=== PATIENT | female | born 1960 | race Caucasian/White ===

== ENCOUNTER 2023-05-16 09:05 | Outpatient (OUT) | payer OTHER, SELFPAY ==
[2023-05-16 09:33] LABS: Estimated Average Glucose 108 mg/dL; Glycohemoglobin A1C 5.4 % (4.5-6.2)
[2023-05-16 09:42] LABS: Basophils Percent Auto 0.4 % (0.2-2.0); Eosinophils Percent Auto 0.9 % (0.9-7.0); Hematocrit 41.7 % (36.0-48.0); Hemoglobin 13.3 g/dL (12.0-16.0); Lymphocytes Absolute Auto 1.7 10^3/uL (1.2-3.8); Mean Corpuscular HGB Conc 31.9 g/dL (29.9-35.2); Mean Corpuscular Hemoglobin 30.8 pg (26.7-34.0); Mean Corpuscular Volume 96.5 fL (81.0-99.0); Mean Platelet Volume 11.2 fL (9.5-13.5); Monocytes Absolute Auto 0.4 10^3/uL (0.3-0.8); Monocytes Percent Auto 7.5 % (1.7-12.0); Neutrophils Absolute Auto 2.6 10^3/uL (1.4-6.5); Neutrophils Percent Auto 55.2 % (43.0-75.0); Platelet Count 198 10^3/uL (150-450); Red Blood Count 4.32 10^6/uL (4.20-5.40); Red Cell Distribution Width 12.9 % (11.0-15.0); White Blood Count 4.6 10^3/uL (4.0-11.0)
[2023-05-16 11:01] LABS: Alanine Aminotransferase 23 U/L (14-59); Albumin Globulin Ratio 1.1; Albumin Level 3.2 g/dL (3.4-5.0); Alkaline Phosphatase 81 U/L (46-116); Anion Gap 9.8; Aspartate Amino Transferase 19 U/L (15-37); BUN Creatinine Ratio 17.1; Bilirubin Total 0.7 mg/dL (0.2-1.0); Calcium 8.5 mg/dL (8.5-10.1); Carbon Dioxide 30.3 mmol/L (21.0-32.0); Chloride 106 mmol/L (98-107); Chol HDL Ratio 2.3; Cholesterol 193 mg/dL (<=200); Estimated GFR (African America >60 (>=60); Estimated GFR (Non-African Ame >60 (>=60); Free T3 2.24 pg/mL (2.18-3.98); Globulin 2.9 g/dL; Glucose 86 mg/dL (74-106); HDL Cholesterol 83 mg/dL (40-60); Potassium 4.1 mmol/L (3.5-5.1); Sodium 142 mmol/L (136-145); Thyroid Stimulating Hormone 0.914 uIU/mL (0.358-3.740); Total Protein 6.1 g/dL (6.4-8.2); Triglycerides 38 mg/dL (<=150); VLDL CHOLESTEROL 7.6 mg/dL
== END 2023-05-16 09:06 | disposition home or self-care (01) ==
LOC: LAB 09:05
PROVIDERS: PCP Family Medicine; Visit Provider Family Medicine
DX: Z00.00 Encounter for general adult medical examination without abnormal findings (principal)
CPT/HCPCS: 36415; 80053; 80061; 83036; 84436; 84443; 84481; 85025

== ENCOUNTER 2023-07-31 09:49 | Outpatient (OUT) | payer OTHER, SELFPAY ==
--- NOTE | 2023-07-31 09:55 | XR_ITS ---
[address] [address] Patient Name: SUMAN BOURNE MRN: [id number] date: 1960 Sex: F Assigned Patient Location: [facility] Current Patient Location: [facility] Accession/Order Number: [id number] Exam Date: 07/31/2023 10:20 Report Date: 07/31/2023 12:20 At the request of: AASHISH AGUILAR Procedure: XR DEXA axial skeleton EXAMINATION: XR DEXA axial skeleton, 07/31/2023 10:20 AM EST HISTORY: Primary Ovarian Failuer E28.39 COMPARISON: None. TECHNIQUE: Dual-energy X-ray absorptiometry (DEXA) bone density study performed for the axial skeleton. HISTORY: Primary Ovarian Failuer E28.39 FINDINGS: Bone mineral density AP spine L1-L4 measures 0.765 g/sq cm. T score -3.5. WHO classification: Osteoporosis. Lowest bone mineral density right femoral trochanter measuring 0.430 g/sq cm. T score -3.7. WHO classification: Osteoporosis XR/XR DEXA axial skeleton IMPRESSION: Osteoporosis. High fracture risk Electronically authenticated by: EFRAIN GRANT Date: 07/31/2023 12:20
== END 2023-07-31 09:50 | disposition home or self-care (01) ==
LOC: RAD 09:50
PROVIDERS: PCP Family Medicine; Visit Provider Family Medicine
DX: E28.39 Other primary ovarian failure (principal); M81.0 Age-related osteoporosis without current pathological fracture
CPT/HCPCS: 77080

== ENCOUNTER 2023-08-20 15:44 | Outpatient (OUT) | payer OTHER, SELFPAY ==
--- OUTSIDE RECORDS SUMMARY | 2023-08-20 15:46 | XMS_ITS | CCD ---
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 Role Phone PHYSICIAN, DEFAULT Unavailable Unavailable PHYSICIAN, DEFAULT Unavailable Unavailable LAUREN, DR ZENDEJAS Admitting Unavailable HOY, DR ZENDEJAS Attending Unavailable HOY, DR ZENDEJAS Consulting Unavailable HOY, DR ZENDEJAS Primary Care Unavailable HOY, DR ZENDEJAS Admitting Unavailable HOY, DR ZENDEJAS Attending Unavailable HOANGY, DR ZENDEJAS Consulting Unavailable LAUREN, DR ZENDEJAS Primary Care Unavailable ZEHRA, DR BHARATHI Jeff Consulting Unavailable HOANGY, DR ZENDEJAS Admitting Unavailable HOY, DR ZENDEJAS Attending Unavailable HOY, DR ZENDEJAS Consulting Unavailable HOY, DR ZENDEJAS Primary Care Unavailable INGLEWOOD, DR EFRAIN Rizzo Consulting Unavailable LAUREN, DR ZENDEJAS Admitting Unavailable LAUREN, DR ZENDEJAS Attending Unavailable LAUREN, DR ZENDEJAS Primary Care Unavailable Aashish Guerrero MD Primary Care Provider [phone] AASHISH GUERRERO Primary Care Unavailable LOUIE GERMAIN Referring Unavailable AASHISH GUERRERO Primary Care Unavailable LOUIE GERMAIN Attending Unavailable Medications Completed/Discontinued Medications Medication Drug Class(es) Dates Sig (Normalized) Sig (Original) busPIRone (2 sources) BUSPIRONE HCL (BUSPIRONE ORAL) Indications: H/O: knee surgery Take by mouth. 0 Active Comment on above: Take by mouth. cyclobenzaprine hydrochloride 10 mg oral tablet (2 sources) Muscle Relaxant cyclobenzaprine (FLEXERIL) 10 mg tablet Take 10-20 mg by mouth daily at bedtime. 0 Active Comment on above: Take 10-20 mg by nanette th daily at bedtime. docusate sodium 100 mg oral capsule (2 sources) Start: 09-12-2013 take 1 capsule by mouth every twelve hours as needed docusate sodium (COLACE) 100 mg capsule Take 1 capsule by mouth twice daily as needed for Constipation. 60 capsule 3 09/12/2013 Active Comment on above: Take 1 capsule by mo uth twice daily as needed for Constipation. ibuprofen 600 mg oral tablet (2 sources) Nonsteroidal Anti-inflammatory Drug Start: 09-12-2013 take 1 tablet by mouth every eight hours as needed ibuprofen 600 mg tablet Take 1 tablet by mouth every 8 hours as needed for Pain. 60 tablet 3 09/12/2013 Active Comment on above: Take 1 tablet by naentte th every 8 hours as needed for Pain. levETIRAcetam 500 mg oral tablet (2 sources) levETIRAcetam (KEPPRA) 500 mg tablet Take 3,000 mg by mouth daily at bedtime. 0 Active Comment on above: Take 3,000 mg by nanette th daily at bedtime. levothyroxine sodium 0.1 mg oral tablet (2 sources) l-Thyroxine take 1 tablet by mouth once daily before breakfast levothyroxine (LEVOTHROID) 100 mcg tablet Take 100 mcg by mouth daily before breakfast. 0 Active Comment on above: Take 100 mcg by mout h daily before breakfast. predniSONE 10 mg oral tablet (2 sources) Start: 01-22-2017 predniSONE (DELTASONE) 10 mg tablet Indications: Closed fracture of right patella, unspecified fracture morphology, initial encounter TAKE ONE TABLET TWICE DAILY TIMES 7 DAYS THAN ONE TABLET DAILY TIMES 7 DAYS. 21 tablet 0 01/22/2017 Active Comment on above: TAKE ONE TABLET TWIC E DAILY TIMES 7 DAYS THAN ONE TABLET DAILY TIMES 7 DAYS. Problems Active Problems Problem Classification Problem Date Documented Da te Episodic/Chronic Complication of device; implant or graft (1 source) Pain; Translations: [Pain due to internal orthopedic prosthetic devices, implants and grafts, initial encounter] Episodic Other lower respiratory disease (4 sources) Pleurodynia; Translations: [PLEURODYNIA] Onset: 11-25-2021 Episodic Other non-traumatic joint disorders (2 sources) Pain in right knee; Translations: [Pain in joint, lower leg] Onset: 11-21-2022 Episodic Residual codes; unclassified (1 source) Pain, unspecified; Translations: [Pain] Onset: 11-21-2022 Episodic Past or Other Problems Problem Classification Problem Date Documented Da te Episodic/Chronic Other non-traumatic joint disorders (4 sources) Pain in left knee; Translations: [PAIN IN LEFT KNEE] Onset: 09-11-2021 Episodic Other non-traumatic joint disorders (1 source) Effusion, left knee; Translations: [EFFUSION LEFT KNEE] Onset: 09-13-2021 Episodic Results Test Name Value Interpretation Reference Range Facility [facility] 11-21-2022 CNOV Office Visit (LOORRM) TIGIST MORTON ([id number]) 1960 F Date Time Provider Department 11/21/22 2:15 PM LOUIE GERMAIN During your visit today, we recorded the following information about you: Weight 69.9 kg Louie Germain MD 11/21/2022 3:31 PM Signed This document has been created with the use of voice recognition technology. It may contain inaccuracies: misspellings, inaccurate syntax or word sense that escaped review. The patient is seen at the request of self for evaluation and an opinion regarding treatment. A copy of this report will remain in the shared medical record CHIEF COMPLAINT: Tigist Morton is a 61 year old female who presents today for new evaluation of painful right knee hardware. HISTORY OF PRESENT ILLNESS: PAIN EVALUATION 11/21/2022 1418 Pain Level: 5 Pain Location: Knee-Right Description: Burning Duration Units: Years Frequency: Intermittent HISTORY: Tigist Morton has complains of painful right knee patellar fracture fixation hardware. She states that she sustained a syncopal episode on 2015 while in [place]. This resulted in a pelvic fracture. She subsequently underwent surgical treatment with fixation using K wire and cerclage wire technique. She subsequently was placed in a knee immobilizer and following up in [place]. She reports being in the knee immobilizer for 10 weeks and then was started in physical therapy. She reports decreased motion since. She did see GERRY Richardson in 2017 who gave her an intra-articular cortisone injection and initiated physical therapy. She does have pain with stairs and has difficulty with activities that require deep knee flexion such as riding the bike. She has difficulty kneeling. She notes prominence of the hardware with pain. No neurologic complaints. No other musculoskeletal complaints ROS: REVIEW OF SYSTEMS: Constitutional: patient denies any recent fever or significant change in weight Cardiovascular: patient denies any chest pain at rest Respiratory: patient denies any shortness of breath or cough Gastrointestinal: patient denies any current abdominal discomfort Integumentary: patient denies any recent skin changes Musculoskeletal: as noted in the HPI Neurologic: as noted in the HPI Endocrine: patient denies a current diagnosis of diabetes Hematologic/Lymphati c: Negative Psychologic: negative SOCIAL HISTORY: Tobacco Use: Never FAMILY HISTORY: FAMILY HISTORY Problem Relation Age of Onset Heart Father Thyroid Mother ALLERGIES: ALLERGIES No Known Allergies PAST MEDICAL HISTORY: PAST MEDICAL HISTORY Diagnosis Date Epilepsy ([facility]) Glaucoma Hypothyroid SOCIAL HISTORY: Tobacco Use: Never EXAMINATION: GENERAL: Appears healthy, well-nourished, no deformities. ORIENTATION: Alert and oriented to person place and time HABITUS: Normal GAIT: Normal, the patient did not have trouble getting onto the exam table. right knee exam: Midline skin incision which is healed No erythema or evidence of infection Prominence medially over the superior patella which is painful with palpation Prominence laterally and inferiorly patella which is painful with palpation No effusion Neutral alignment Active full extension, flexion 105. Good patellar tracking/mild patella femoral crepitation Negative pain with palpating medial compartment, negative pain with palpating lateral compartment. Stable to varus and valgus stresses. Donald is negative Negative anterior/posterior drawer. Negative McMurrays Palpable dorsalis pedis pulse Calf soft and nontender. Hip exam negative Intact sensation to light touch distally. RADIOGRAPHS: XR Obtained today and personally reviewed by myself demonstrating evidence for healed patellar fracture. 2 K wires with [id number]-nr-[id number] cerclage wire. The K wires appear to be prominent both proximally and distally. The lateral wire appears to be migrated distally from prior x-rays IMPRESSION: Encounter Diagnosis ICD-10-CM 1. Painful orthopaedic hardware ([facility]) T84.84XA CONSULT TO(TCI)PRE-OP CLEAR SURGICAL REQUEST - ELECTIVE (03/2020) 2. Right knee pain, unspecified chronicity M25.561 CRUTCHES Procedures Plan: Patient with painful hardware postoperative fixation right patella fracture. I discussed indications for removal of the hardware. Discussed main indication is pain from the hardware locally. 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 She has decreased flexion and I discussed that removal of the hardware will not improve her range of motion. I discussed that she may have difficulty kneeling regardless of the hardware is removed or not. I went over the procedure, rationale for the procedure, options risks expected outcome postoperative rehab. Discussed risks of infection, increased stiffness, perioperative medical problems, (more content not included)... Normal [facility] Elena 11-21-2022 CNPN Telephone (LOORRM) TIGIST MORTON ([id number]) 1960 F Date Time Provider Department 11/21/22 LOUIE GERMAIN During your visit today, we recorded the following information about you: Gui Leal 11/21/2022 3:44 PM Signed Spoke to patient and scheduled PACC for upcoming surgery of right knee with Dr. Germain of 12/10/22. Allergies As of Date: 11/21/2022 (No Known Allergies) Date Reviewed: 01/22/2017 Reviewed by: Lalit Hicks - Fully Assessed Reason for Visit: Surgical Followup [104] Prescriptions as of 11/21/2022 - predniSONE (DELTASONE) 10 mg tablet TAKE ONE TABLET TWICE DAILY TIMES 7 DAYS THAN ONE TABLET DAILY TIMES 7 DAYS. - BUSPIRONE HCL (BUSPIRONE ORAL) Take by mouth. - ibuprofen 600 mg tablet Take 1 tablet by mouth every 8 hours as needed for Pain. - docusate sodium (COLACE) 100 mg capsule Take 1 capsule by mouth twice daily as needed for Constipation. - cyclobenzaprine (FLEXERIL) 10 mg tablet Take 10-20 mg by mouth daily at bedtime. - levothyroxine (LEVOTHROID) 100 mcg tablet Take 100 mcg by mouth daily before breakfast. - levETIRAcetam (KEPPRA) 500 mg tablet Take 3,000 mg by mouth daily at bedtime. Problem List As Of Date: 11/21/2022 (None) Encounter Status:Closed by GUI LEAL on 11/21/22 Normal [facility] XR KNEE 4V AP/PA BOTH+LAT/ME R RTon 11-21-2022 XR KNEE 4V AP/PA BOTH+LAT/CUCA RT * * *Final Report* * * DATE OF EXAM: Nov 21 2022 2:13PM LZX 5203 - XR KNEE 4V AP/PA BOTH+LAT/CUCA RT / PROCEDURE REASON: Pain * * * * Physician Interpretation * * * * HISTORY (as given from clinical provider): Pain . Additional history provided by the performing technologist (if any): Right knee pain TECHNIQUE: XR KNEE 4V AP/PA BOTH+LAT/CUCA RT COMPARISON: 2016 RESULT: Awgcjj-kw-zbrik wire fixation of the patella. K wires extend beyond the superior and inferior pole of the patella. Hardware is intact. There is no fracture seen. Patella baja. 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 Osteopenia. No other significant abnormality. ----- IMPRESSION: HEALED PATELLAR FRACTURE STATUS POST FIXATION. ONE OF THE K WIRES HAS PROBABLY PULLED OUT SLIGHTLY COMPARED TO THE PRIOR STUDY. PATELLA BAJA. OSTEOARTHRITIS, SIMILAR TO PRIOR Veterinary X Ray Operator: [facility] Transcribe Date/Time: Nov 21 2022 4:09P Dictated by : JUAN CARLOS GRACIA MD This examination was interpreted and the report reviewed and electronically signed by: JUAN CARLOS GRACIA MD on Nov 21 2022 4:12PM EST [id number] Normal [facility] Elena 11-18-2022 NADEEM Telephone (4CQ) TIGIST MORTON ([id number]) 1960 F Date Time Provider Department 11/18/22 LOUIE GERMAIN 4CQ During your visit today, we recorded the following information about you: Anne Sanches Ma 11/18/2022 2:40 PM Signed Tigist Morton is calling Louie Germain MD today to request Release Of Medical Records Patient calling stating she has appt 11/[address] Germain. States she is not able to get a hold of the doctor in [facility] to ask for records from when she was hospitalized in 07/17/[address] Germain office could try calling them to see if they could get the records? Patient wondering if she has to cancel appt if no records are received before appt? Please advise patient. [facility] Phone- [phone] Fax- [phone] Patient has been identified by name and birthdate. Duration of symptoms: N/A Person calling: self Call patient at: at home [phone] (home) [phone] (work) [phone] (cell) Was an appointment scheduled: No Closing statement: Results or non-symptom based questions: Thank you for calling [facility], your call will be returned within the next business day. Anne Pruett RN 11/18/2022 3:14 PM Signed Called patient and let her know that we would like to have the patients operative records from her previous knee surgery. Gave her our fax number. Let her know that if she is unable to get her records by Thursday we would still see her. Patient stated understanding. Allergies As of Date: 11/18/2022 (No Known Allergies) Date Reviewed: 01/22/2017 Reviewed by: Lalit Gonzalez) [facility] - Fully Assessed Reason for Visit: Release Of Medical Records [2017] Prescriptions as of 11/18/2022 - predniSONE (DELTASONE) 10 mg tablet TAKE ONE TABLET TWICE DAILY TIMES 7 DAYS THAN ONE TABLET DAILY TIMES 7 DAYS. - BUSPIRONE HCL (BUSPIRONE ORAL) Take by mouth. - ibuprofen 600 mg tablet Take 1 tablet by mouth every 8 hours as needed for Pain. - docusate sodium (COLACE) 100 mg capsule Take 1 capsule by mouth twice daily as needed for Constipation. - cyclobenzaprine (FLEXERIL) 10 mg tablet Take 10-20 mg by mouth daily at bedtime. - levothyroxine (LEVOTHROID) 100 mcg tablet Take 100 mcg by mouth daily before breakfast. - levETIRAcetam (KEPPRA) 500 mg tablet Take 3,000 mg by mouth daily at bedtime. Problem List As Of Date: 11/18/2022 (None) Encounter Status:Closed by RHIANNON PRUETT on 11/18/22 Normal [facility] Superficial Wound Cultureon 03-12-2022 Superficial Wound Culture Result Tab Codes 03/13/22 [facility] FURNACE COOLER PM ORGANISM: Staphylococcus aureus (O:STAAUR) Quantity of Growth Moderate Growth Aerobic JANETH Charge (PC45) ----- SUSCEPTIBILITY ---- ORGANISM: O:STAAUR ANTIBIOTIC INTERPRETATION JANETH Amoxacillin/K Clavulanate S <4/2 Ampicillin/Sulbactam S <8/4 Azithromycin S <2 Cefazolin S <8 Ceftaroline S <0.5 Ceftriaxone S <8 Ciprofloxacin S <1 Clindamycin S <0.5 Daptomycin S <1 Erythromycin S <0.25 Levofloxacin S <1 Linezolid S <2 Meropenem S <4 Oxacillin S <0.25 Penicillin S <0.03 Piperacillin/Tazobac clinton S <4 Rifampin S <1 Tetracycline S <4 Trimethoprim/Sulfame thoxazole S <0.5/9.5 Vancomycin S 1 S = SUSCEPTIBLE I = INTERMEDIATE R = RESISTANT BLANK = DATA NOT AVAILABLE, OR DRUG NOT ADVISABLE OR TESTED R* = RESISTANCE DUE TO EXTENDED SPECTRUM BETA-LACTAMASES ESBL = EXTENDED SPECTRUM BETA-LACTAMASE TFG = THYMIDINE-DEPENDENT STRAIN SERVANDO = BETA-LACTAMASE POSITIVE IB = INDUCIBLE BETA-LACTAMASE. APPEARS IN PLACE OF 'S' WITH SPECIES KNOWN TO POSSESS INDUCIBLE BETA-LACTAMASES. POTENTIALLY THEY MAY BECOME RESISTANT TO ALL B-LACTAM DRUGS. PERFORMED BY: [address] [place] [address] PATHOLOGIST AP OPERATOR RAMIN BRIDGES M.D. Normal [facility] Comment on above: Performed By: #### C USUP #### [facility] [address] INSULINon 01-06-2022 Insulin 8.1 uIU/mL Normal 2.6-24.9 [facility] Comment on above: Performed By: #### I NSULIN #### [facility] [address] [place] [address] Dr. Ludmila Farooq CBC AUTO DIFFon 01-04-2022 BASO # 0.0 103/ul Normal 0.0-0.1 [facility] Comment on above: Performed By: #### C BC #### [facility] [address] [place] [address] Dr. Ludmila Farooq Basophils/100 WBC (Bld) 0.3 % Normal 0.2-2.0 [facility] Comment on above: Performed By: #### C BC #### [facility] [address] [place] [address] Dr. Ludmila Farooq EO # 0.1 103/ul Normal 0.0-0.7 [facility] Comment on above: Performed By: #### C BC #### [facility] [address] [place] [address] Dr. Ludmila Farooq Eosinophils/100 WBC (Bld) 1.3 % Normal 0.9-7.0 [facility] Comment on above: Performed By: #### C BC #### [facility] [address] [place] [address] Dr. Ludmila Farooq Erythrocyte distribution width (RBC) [Ratio] 13.2 % Normal 11.0-15.0 [facility] Comment on above: Performed By: #### C BC #### [facility] [address] [place] [address] Dr. Ludmila Farooq Hematocrit (Bld) [Volume fraction] 41.7 % Normal 36.0-48.0 [facility] Comment on above: Performed By: #### C BC #### [facility] [address] [place] [address] Dr. Ludmila Farooq Hemoglobin (Bld) [Mass/Vol] 13.5 g/dL Normal 12.0-16.0 [facility] Comment on above: Performed By: #### C BC #### [facility] [address] [place] [address] Dr. Ludmila Farooq IG # 0.01 10e3/ul Normal 0.00-0.03 [facility] Comment on above: Performed By: #### C BC #### [facility] [address] [place] [address] Dr. Ludmila Farooq IG % 0.3 % Normal 0.0-0.5 [facility] Comment on above: Performed By: #### C BC #### [facility] [address] [place] [address] Dr. Ludmila Farooq LYMPH # 1.6 103/ul Normal 1.2-3.8 [facility] Comment on above: Performed By: #### C BC #### [facility] [address] [place] [address] Dr. Ludmila Farooq Lymphocytes/100 WBC (Bld) 40.7 % Normal 20.5-60.0 [facility] Comment on above: Performed By: #### C BC #### [facility] [address] [place] [address] Dr. Ludmila Farooq MANUAL DIFF REQ NO Normal [facility] Comment on above: Performed By: #### C BC #### [facility] [address] [place] [address] Dr. Ludmila Farooq MCH (RBC) [Entitic mass] 30.8 pg Normal 26.7-34.0 [facility] Comment on above: Performed By: #### C BC #### [facility] [address] [place] [address] Dr. Ludmila Farooq MCHC (RBC) [Mass/Vol] 32.4 g/dL Normal 29.9-35.2 [facility] Comment on above: Performed By: #### C BC #### [facility] [address] [place] [address] Dr. Ludmila Farooq MCV (RBC) [Entitic vol] 95.2 fL Normal 81.0-99.0 [facility] Comment on above: Performed By: #### C BC #### [facility] [address] [place] [address] Dr. Ludmila Farooq MONO # 0.3 103/ul Normal 0.3-0.8 [facility] Comment on above: Performed By: #### C BC #### [facility] [address] [place] [address] Dr. Ludmila Farooq Monocytes/100 WBC (Bld) 7.3 % Normal 1.7-12.0 [facility] Comment on above: Performed By: #### C BC #### [facility] [address] [place] [address] Dr. Ludmila Farooq NEUT # 2.0 103/ul Normal 1.4-6.5 [facility] Comment on above: Performed By: #### C BC #### [facility] [address] [place] [address] Dr. Ludmila Farooq Neutrophils/100 WBC (Bld) 50.1 % Normal 43.0-75.0 [facility] Comment on above: Performed By: #### C BC #### [facility] [address] [place] [address] Dr. Ludmila Farooq Platelet mean volume (Bld) [Entitic vol] 10.5 fL Normal 9.5-13.5 [facility] Comment on above: Performed By: #### C BC #### [facility] [address] [place] [address] Dr. Ludmila Farooq PLT 236 103/ul Normal 150-450 [facility] Comment on above: Performed By: #### C BC #### [facility] [address] [place] [address] Dr. Ludmila Farooq RBC 4.38 106/ul Normal 4.20-5.40 [facility] Comment on above: Performed By: #### C BC #### [facility] [address] [place] [address] Dr. Ludmila Farooq WBC 4.0 103/ul Normal 4.0-11.0 [facility] Comment on above: Performed By: #### C BC #### [facility] [address] [place] [address] Dr. Ludmila Farooq FREE THYROXINE INDEX T7on FTI 3.22 Normal 1.30-4.50 [facility] Comment on above: Performed By: #### C MP, T7, LIPID, TSH #### [facility] [address] [place] [address] Dr. Ludmila Farooq T3U 37.0 % Normal 30.0-39.0 [facility] Comment on above: Performed By: #### C MP, T7, LIPID, TSH #### [facility] [address] [place] [address] Dr. Ludmila Farooq T4 [Mass/Vol] 8.70 ug/dL Normal 4.80-13.90 [facility] Comment on above: Performed By: #### C MP, T7, LIPID, TSH #### [facility] [address] [place] [address] Dr. Ludmila Farooq GLYCOHEMOGLOBIN A1Con 2021 ADA RECOMMENDATION SEE BELOW Normal [facility] Comment on above: Result Comment: ADA RECOMMENDED LIMIT 4.0 - 6.0 ADA THERAPEUTIC TARGET < 7.0 ACTION SUGGESTED > 7.0 Performed By: #### A 1C #### [facility] [address] [place] [address] Dr. Ludmila Farooq Glucose [Mass/Vol] 111 mg/dL Normal [facility] Comment on above: Performed By: #### A 1C #### [facility] [address] [place] [address] Dr. Ludmila Farooq HbA1c (Bld) [Mass fraction] 5.5 % Normal 4.5-6.2 [facility] Comment on above: Performed By: #### A 1C #### [facility] [address] [place] [address] Dr. Ludmila Farooq IRONon 01-04-2022 Iron [Mass/Vol] 110.0 ug/dL Normal 50.0-170.0 [facility] Comment on above: Performed By: #### I DEVENDRA #### [facility] [address] [address] [address] Ludmila Farooq LIPID PROFILEon 01-04-2022 CHOL-HDL RATIO NORM SEE BELOW Normal [facility] Comment on above: Result Comment: 3.3 - 4.4 LOW RISK 4.4 - 7.1 AVERAGE RISK 7.1 - 11.0 MODERATE RISK >11.0 HIGH RISK Performed By: #### C MP, T7, LIPID, TSH #### [facility] [address] [address] [address] Ludmila Farooq Cholesterol [Mass/Vol] 267 mg/dL Critically high <=200 [facility] Comment on above: Performed By: #### C MP, T7, LIPID, TSH #### [facility] [address] [place] [address] Dr. Ludmila Farooq Cholesterol in HDL [Mass/Vol] 84 mg/dL Critically high 40-60 [facility] Comment on above: Performed By: #### C MP, T7, LIPID, TSH #### [facility] [address] [address] [address] Ludmila Farooq Cholesterol in LDL [Mass/Vol] 172.0 mg/dL Normal [facility] Comment on above: Performed By: #### C MP, T7, LIPID, TSH #### [facility] [address] [address] [address] Ludmila Farooq Cholesterol.total/Cho lesterol in HDL [Mass ratio] 3.2 {ratio} Normal [facility] Comment on above: Performed By: #### C MP, T7, LIPID, TSH #### [facility] [address] [place] [address] Dr. Ludmila Farooq HDL NORMAL > or = 60 mg/dl - LOW CARDIOVASCULAR RISK <40 mg/dl - HIGH CARDIOVASCULAR RISK Normal [facility] Comment on above: Performed By: #### C MP, T7, LIPID, TSH #### [facility] [address] [place] [address] Dr. Ludmila Farooq LDL CALC NORMAL SEE BELOW Normal [facility] Comment on above: Result Comment: <100 mg/dl OPTIMAL 100 - 129 mg/dl NEAR OR ABOVE OPTIMAL 130 - 159 mg/dl BORDERLINE HIGH 160 - 189 mg/dl HIGH >190 mg/dl VERY HIGH Performed By: #### C MP, T7, LIPID, TSH #### [facility] [address] [address] [address] Ludmila Farooq Triglyceride [Mass/Vol] 55 mg/dL Normal <=150 [facility] Comment on above: Performed By: #### C MP, T7, LIPID, TSH #### [facility] [address] [address] [address] Ludmila Farooq VLDL CALC 11.0 mg/dL Normal [facility] Comment on above: Performed By: #### C MP, T7, LIPID, TSH #### [facility] [address] [address] [address] Ludmila Farooq OCC BLD IMMUNO SCREENon 12-22 OCCULT BLOOD Negative Normal NEGATIVE [facility] Comment on above: Performed By: #### O BSCRN #### [facility] [address] [place] [address] Dr. Ludmila Farooq PROF 14(COMP METB)on 022 Albumin [Mass/Vol] 3.4 g/dL Normal 3.4-5.0 [facility] Comment on above: Performed By: #### C MP, T7, LIPID, TSH #### [facility] [address] [place] [address] Dr. Ludmila Farooq Albumin/Globulin [Mass ratio] 1.0 {ratio} Normal [facility] Comment on above: Performed By: #### C MP, T7, LIPID, TSH #### [facility] [address] [place] [address] Dr. Ludmila Farooq ALP [Catalytic activity/Vol] 93 U/L Normal 46-116 [facility] Comment on above: Performed By: #### C MP, T7, LIPID, TSH #### [facility] [address] [place] [address] Dr. Ludmila Farooq ALT [Catalytic activity/Vol] 22 U/L Normal 14-59 [facility] Comment on above: Performed By: #### C MP, T7, LIPID, TSH #### [facility] [address] [place] [address] Dr. Ludmila Farooq Anion gap [Moles/Vol] 9.1 mmol/L Normal [facility] Comment on above: Performed By: #### C MP, T7, LIPID, TSH #### [facility] [address] [address] [address] Ludmila Farooq AST [Catalytic activity/Vol] 17 U/L Normal 15-37 [facility] Comment on above: Performed By: #### C MP, T7, LIPID, TSH #### [facility] [address] [address] [address] Ludmila Farooq Bilirubin [Mass/Vol] 0.7 mg/dL Normal 0.2-1.0 [facility] Comment on above: Performed By: #### C MP, T7, LIPID, TSH #### [facility] [address] [place] [address] Dr. Ludmila Farooq Calcium [Mass/Vol] 8.7 mg/dL Normal 8.5-10.1 [facility] Comment on above: Performed By: #### C MP, T7, LIPID, TSH #### [facility] [address] [address] [address] Ludmila Farooq Chloride [Moles/Vol] 103 mmol/L Normal 98-107 [facility] Comment on above: Performed By: #### C MP, T7, LIPID, TSH #### [facility] [address] [place] [address] Dr. Ludmila Farooq CO2 [Moles/Vol] 31.7 mmol/L Normal 21.0-32.0 [facility] Comment on above: Performed By: #### C MP, T7, LIPID, TSH #### [facility] [address] [place] [address] Dr. Ludmila Farooq Creatinine [Mass/Vol] 0.82 mg/dL Normal 0.55-1.02 [facility] Comment on above: Performed By: #### C MP, T7, LIPID, TSH #### [facility] [address] [place] [address] Dr. Ludmila Farooq EGFR-AF SWEDISH >60 Normal >=60 [facility] Comment on above: Performed By: #### C MP, T7, LIPID, TSH #### [facility] [address] [address] [address] Ludmila Farooq EGFR-NON AF SWEDISH >60 Normal >=60 [facility] Comment on above: Performed By: #### C MP, T7, LIPID, TSH #### [facility] [address] [address] [address] Ludmila Farooq Globulin (S) [Mass/Vol] 3.4 g/dL Normal [facility] Comment on above: Performed By: #### C MP, T7, LIPID, TSH #### [facility] [address] [place] [address] Dr. Ludmila Farooq Glucose [Mass/Vol] 91 mg/dL Normal 74-106 [facility] Comment on above: Performed By: #### C MP, T7, LIPID, TSH #### [facility] [address] [place] [address] Dr. Ludmila Farooq Potassium [Moles/Vol] 3.8 mmol/L Normal 3.5-5.1 [facility] Comment on above: Performed By: #### C MP, T7, LIPID, TSH #### [facility] [address] [address] [address] Ludmila Farooq Protein [Mass/Vol] 6.8 g/dL Normal 6.4-8.2 [facility] Comment on above: Performed By: #### C MP, T7, LIPID, TSH #### [facility] [address] [place] [address] Dr. Ludmila Farooq Sodium [Moles/Vol] 140 mmol/L Normal 136-145 [facility] Comment on above: Performed By: #### C MP, T7, LIPID, TSH #### [facility] [address] [place] [address] Dr. Ludmila Farooq Urea nitrogen [Mass/Vol] 16.0 mg/dL Normal 7.0-18.0 [facility] Comment on above: Performed By: #### C MP, T7, LIPID, TSH #### [facility] [address] [place] [address] Dr. Ludmila Farooq Urea nitrogen/Creatinine [Mass ratio] 19.5 mg/mg Normal [facility] Comment on above: Performed By: #### C MP, T7, LIPID, TSH #### [facility] [address] [place], [place] [address] Dr. Ludmila Farooq TSHon 01-04-2022 TSH 0.608 uIU/mL Normal 0.358-3.740 [facility] Comment on above: Performed By: #### C MP, T7, LIPID, TSH ####[facility] [address] [place], [place] [address]YqDr. Ludmila Farooq TSH RANGE SEE BELOW Normal [facility] Comment on above: Result Comment: <0.3 4 UIU/ml HYPERTHYROID 0.34-5.60 UIU/ml EUTHYROID >5.60 UIU/ml HYPOTHYROID Performed By: #### C MP, T7, LIPID, TSH ####[facility] [address] [place], [place] [address]VlDr. Ludmila Farooq XR RIBS RT PA Gage 2 XR RIBS RT PA CH EXAMINATION: XR RIBS RT PA CH HISTORY: Pleuritic pain , right posterior lateral mid rib pain. COMPARISON: No relevant comparison available. FINDINGS: LUNGS: No significant pulmonary parenchymal abnormalities. PLEURA: No pneumothorax, effusion, or pleural thickening. MEDIASTINUM: No visible mass or adenopathy. CARDIAC: No cardiomegaly or cardiac silhouette abnormality. RIBS: No appreciable fracture or bone lesion. OTHER: Negative. IMPRESSION: 1. No acute cardiopulmonary process. 2. No appreciable rib abnormality. Electronically authenticated by: BHARATHI SHAHID Date: 2021-11-26 07:07 Normal [facility] Vital Signs Date Time Vital Sign Value Performing Clinician Faci lity 11-21-2022 14:20-0400 Body weight 69.85 kg Louie Germain MD Work Phone: [facility] Encounters Encounter Date Encounter Type Care Provider Facility Start: 11-21-2022 End: 11-21-2022 ambulatory AASHISH GUERRERO Facility:[facility] Start: 11-21-2022 End: 11-21-2022 Patient encounter procedure Louie Germain MD Work Phone: Orthopaedics Comment on above: Painful orthopaedic hardware (HCC) (Primary Dx); Right knee pain, unspecified chronicity Start: 11-18-2022 Telephone encounter Louie hughes MD Work Phone: [address] [place] [address] Comment on above: Release Of Medical R ecords Start: 03-25-[address] AASHISH GUERRERO Facility :[facility] Start: 01-08-2022 Encounter for genera l adult medical examination without abnormal findings DR AASHISH GUERRERO [facility] Start: 01-04-2022 End: 01-05-[address] AASHISH GUERRERO Facility:[facility] Start: 01-04-2022 End: 01-05-2022 Encounter for general adult medical examination without abnormal findings DR AASHISH GUERRERO Facility:[facility] Start: 11-25-2021 End: 11-26-[address] AASHISH GUERRERO Facility:[facility] Start: 09-11-2021 End: 09-12-[address] AASHISH GUERRERO Facility:[facility] Start: 12-21-2017 End: 12-22-2017 Ambulatory DEFAULT PHYSICIAN Facility:[facility] Plan of Treatment Date Care Activity Detail Author Start: 08-24-2022 DEPRESSION ASSESSMENT DEPRESSION ASS ESSMENT [facility] Start: 04-24-2022 Influenza vaccination INFLUENZA (#1) [facility] Start: 10-10-2021 COVID-19 VACCINE (4 - Booster for Moderna series) COVID-19 VACCINE (4 - Booster for Moderna series) [facility] Start: 09-12-2016 DIABETES SCREEN DIABETES SCREEN [facility] Start: 01-01-2012 SHINGRIX VACCINE (1 of 2) SHINGRIX V ACCINE (1 of 2) [facility] Start: 2006 COLOGUARD (FIT-DNA) COLOGUARD (FIT-D NA) [facility] Start: 2006 Colonoscopy COLONOSCOPY [facility] Start: 2006 COLORECTAL CANCER SCREENING COLORECTAL CANCER SCREENING [facility] Start: [address] COLONOGRAPHY [facility] Start: 2006 FECAL OCCULT BLOOD FECAL OCCULT BLOO D [facility] Start: 2006 LIPID SCREEN LIPID SCREEN [facility] Start: 2006 SIGMOIDOSCOPY SIGMOIDOSCOPY [facility] Start: 2001 Mammography MAMMOGRAM [facility] Start: 01-01-1992 HPV TESTING HPV TESTING [facility] Start: 1982 PAP TESTING PAP TESTING [facility] Start: 1980 Urine microalbumin profile DTAP,TDAP ,TD (1 - Tdap) [facility] Start: 01-01-1980 HEPATITIS C SCREENING HEPATITIS C SC REENING [facility] Start: 01-01-1980 [facility] Start: 07-03-1962 COVID-19 VACCINE (#1) COVID-19 VACCI NE (#1) [facility] Payers Date Payer Category Payer Unknown 1960 Unknown [id number] 1960 Unknown [id number] 1961 Unknown [id number] 1961 Unknown [id number] 1958 Self-pay 1958 Unknown [id number] Social History Date Type Detail Facility [facility]: 09-06-[facility] Start: 09-06-2013 Tobacco use and exposure Smoke less tobacco non-user [facility] Start: 03-25-2015 Alcohol intake Current drinke r of alcohol (finding) [facility] Start: 1960 Sex Assigned At Not on file [facility] Medical Equipment Procedure Code Equipment Code Equipment Origin al Text Equipment Identifier Dates Restorelle L-Mes h - [id number] Start: 09-12-2013 Mesh Trnvg Jg 45x1.1cm Gyncr - [id number] Start: 09-12-2013 Progress note 11-21-2022 Note Date & Type Note Facility 11-21-2022 Note HNO ID: [id number] Author: Louie Germain MD Service: ? Author Type: Physician Type: Progress Notes Filed: 11/21/2022 3:31 PM Note Text: This document has been created with the use of voice recognition technology. It may contain inaccuracies: misspellings, inaccurate syntax or word sense that escaped review. The patient is seen at the request of self for evaluation and an opinion regarding treatment. A copy of this report will remain in the shared medical record CHIEF COMPLAINT: Tigist Morton is a 61 year old female who presents today for new evaluation of painful right knee hardware. HISTORY OF PRESENT ILLNESS: PAIN EVALUATION 11/21/2022 1418 Pain Level: 5 Pain Location: Knee-Right Description: Burning Duration Units: Years Frequency: Intermittent HISTORY: Tigist Morton has complains of painful right knee patellar fracture fixation hardware. She states that she sustained a syncopal episode on 2015 while in [place]. This resulted in a pelvic fracture. She subsequently underwent surgical treatment with fixation using K wire and cerclage wire technique. She subsequently was placed in a knee immobilizer and following up in [place]. She reports being in the knee immobilizer for 10 weeks and then was started in physical therapy. She reports decreased motion since. She did see GERRY Richardson in 2016 who gave her an intra-articular cortisone injection and initiated physical therapy. She does have pain with stairs and has difficulty with activities that require deep knee flexion such as riding the bike. She has difficulty kneeling. She notes prominence of the hardware with pain. No neurologic complaints. No other musculoskeletal complaints ROS: REVIEW OF SYSTEMS: Constitutional: patient denies any recent fever or significant change in weight Cardiovascular: patient denies any chest pain at rest Respiratory: patient denies any shortness of breath or cough Gastrointestinal: patient denies any current abdominal discomfort Integumentary: patient denies any recent skin changes Musculoskeletal: as noted in the HPI Neurologic: as noted in the HPI Endocrine: patient denies a current diagnosis of diabetes Hematologic/Lymphatic: Negative Psychologic: negative SOCIAL HISTORY: Tobacco Use: Never FAMILY HISTORY: FAMILY HISTORY Problem Relation Age of Onset Heart Father Thyroid Mother ALLERGIES: ALLERGIES No Known Allergies PAST MEDICAL HISTORY: PAST MEDICAL HISTORY Diagnosis Date Epilepsy (HCC) Glaucoma Hypothyroid SOCIAL HISTORY: Tobacco Use: Never EXAMINATION: GENERAL: Appears healthy, well-nourished, no deformities. ORIENTATION: Alert and oriented to person place and time HABITUS: Normal GAIT: Normal, the patient did not have trouble getting onto the exam table. right knee exam: Midline skin incision which is healed No erythema or evidence of infection Prominence medially over the superior patella which is painful with palpation Prominence laterally and inferiorly patella which is painful with palpation No effusion Neutral alignment Active full extension, flexion 105. Good patellar tracking/mild patella femoral crepitation Negative pain with palpating medial compartment, negative pain with palpating lateral compartment. Stable to varus and valgus stresses. Donald is negative Negative anterior/posterior drawer. Negative Mc[place]rays Palpable dorsalis pedis pulse Calf soft and nontender. Hip exam negative Intact sensation to light touch distally. RADIOGRAPHS: XR Obtained today and personally reviewed by myself demonstrating evidence for healed patellar fracture. 2 K wires with spwjfj-on-qkfjg cerclage wire. The K wires appear to be prominent both proximally and distally. The lateral wire appears to be migrated distally from prior x-rays IMPRESSION: Encounter Diagnosis ICD-10-CM 1. Painful orthopaedic hardware ([facility]) T84.84XA CONSULT TO(TCI)PRE-OP CLEAR SURGICAL REQUEST - ELECTIVE (03/2020) 2. Right knee pain, unspecified chronicity M25.561 CRUTCHES Procedures Plan: Patient with painful hardware postoperative fixation right patella fracture. I discussed indications for removal of the hardware. Discussed main indication is pain from the hardware locally. 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 She has decreased flexion and I discussed that removal of the hardware will not improve her range of motion. I discussed that she may have difficulty kneeling regardless of the hardware is removed or not. I went over the procedure, rationale for the procedure, options risks expected outcome postoperative rehab. Discussed risks of infection, increased stiffness, perioperative medical problems, neurovascular injury, DVT and persistent pain. I discussed expectations for removal of the hardware and no guarantees were given. She had a good understanding wishes to have the hardware r (more content not included)... [facility] Progress note 11-21-2022 Note Date & Type Note Facility 11-21-2022 Note HNO ID: [id number] Author: Randi Sorensen RT(R) Service: ? Author Type: Technologist Type: Progress Notes Filed: 11/21/2022 2:12 PM Note Text: Radiology Service Progress Note PATIENT NAME: Tigist Morton DATE OF SERVICE: November 21, 2022 TIME: 2:12 PM PATIENT IDENTITY VERIFICATION COMPLETED USING TWO (2) IDENTIFIERS: Name and Date of confirmed by patient verbally. FALL SCREENING: Has the patient had 2 falls in the last year or 1 fall with injury or currently using an Ambulatory Assistive Device (Walker, Cane, Wheelchair, Crutches, etc.)? No PATIENT GENDER DATA: Female. status: : No status: NO. PATIENT RELEVANT IMPLANT DATA REVIEWED: Not Applicable RADIOLOGY DEPARTMENT: General X-ray: Exam(s) Completed: Lower Extremity X-Ray(s): Knee, AP / Lat / Tunne / Merchant Right and Wt. Bearing PERIPHERAL IV DATA: Not applicable SIGNED BY: RT New(R) November 21, 2022 2:12 PM [facility] History of Present illness Narrative 11-21-2022 Louie Germain MD - 11/21/2022 3:14 PM EDT Note Date & Type Note Facility 11-21-2022 History of Presen t illness Narrative This document has been created with the use of voice recognition technology. It may contain inaccuracies: misspellings, inaccurate syntax or word sense that escaped review. The patient is seen at the request of self for evaluation and an opinion regarding treatment. A copy of this report will remain in the shared medical record CHIEF COMPLAINT: Tigist Morton is a 61 year old female who presents today for new evaluation of painful right knee hardware. HISTORY OF PRESENT ILLNESS: PAIN EVALUATION 11/21/2022 1418 Pain Level: 5 Pain Location: Knee-Right Description: Burning Duration Units: Years Frequency: Intermittent HISTORY: Tigist Morton has complains of painful right knee patellar fracture fixation hardware. She states that she sustained a syncopal episode on 2015 while in [place]. This resulted in a pelvic fracture. She subsequently underwent surgical treatment with fixation using K wire and cerclage wire technique. She subsequently was placed in a knee immobilizer and following up in [place]. She reports being in the knee immobilizer for 10 weeks and then was started in physical therapy. She reports decreased motion since. She did see GERRY Richardson in 2017 who gave her an intra-articular cortisone injection and initiated physical therapy. She does have pain with stairs and has difficulty with activities that require deep knee flexion such as riding the bike. She has difficulty kneeling. She notes prominence of the hardware with pain. No neurologic complaints. No other musculoskeletal complaints ROS: REVIEW OF SYSTEMS: Constitutional: patient denies any recent fever or significant change in weight Cardiovascular: patient denies any chest pain at rest Respiratory: patient denies any shortness of breath or cough Gastrointestinal: patient denies any current abdominal discomfort Integumentary: patient denies any recent skin changes Musculoskeletal: as noted in the HPI Neurologic: as noted in the HPI Endocrine: patient denies a current diagnosis of diabetes Hematologic/Lymphatic: Negative Psychologic: negative SOCIAL HISTORY: Tobacco Use: Never FAMILY HISTORY: FAMILY HISTORY Problem Relation Age of Onset Heart Father Thyroid Mother ALLERGIES: ALLERGIES No Known Allergies PAST MEDICAL HISTORY: PAST MEDICAL HISTORY Diagnosis Date Epilepsy (HCC) Glaucoma Hypothyroid SOCIAL HISTORY: Tobacco Use: Never EXAMINATION: GENERAL: Appears healthy, well-nourished, no deformities. ORIENTATION: Alert and oriented to person place and time HABITUS: Normal GAIT: Normal, the patient did not have trouble getting onto the exam table. right knee exam: Midline skin incision which is healed No erythema or evidence of infection Prominence medially over the superior patella which is painful with palpation Prominence laterally and inferiorly patella which is painful with palpation No effusion Neutral alignment Active full extension, flexion 105. Good patellar tracking/mild patella femoral crepitation Negative pain with palpating medial compartment, negative pain with palpating lateral compartment. Stable to varus and valgus stresses. Donald is negative Negative anterior/posterior drawer. Negative Mc[place]rays Palpable dorsalis pedis pulse Calf soft and nontender. Hip exam negative Intact sensation to light touch distally. RADIOGRAPHS: XR Obtained today and personally reviewed by myself demonstrating evidence for healed patellar fracture. 2 K wires with pxyifg-sy-dtztn cerclage wire. The K wires appear to be prominent both proximally and distally. The lateral wire appears to be migrated distally from prior x-rays IMPRESSION: Encounter Diagnosis ICD-10-CM 1. Painful orthopaedic hardware (HCC) T84.84XA CONSULT TO(TCI)PRE-OP CLEAR SURGICAL REQUEST - ELECTIVE (03/2020) 2. Right knee pain, unspecified chronicity M25.561 CRUTCHES Procedures Plan: Patient with painful hardware postoperative fixation right patella fracture. I discussed indications for removal of the hardware. Discussed main indication is pain from the hardware locally. 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 She has decreased flexion and I discussed that removal of the hardware will not improve her range of motion. I discussed that she may have difficulty kneeling regardless of the hardware is removed or not. I went over the procedure, rationale for the procedure, options risks expected outcome postoperative rehab. Discussed risks of infection, increased stiffness, perioperative medical problems, neurovascular injury, DVT and persistent pain. I discussed expectations for removal of the hardware and no guarantees were given. She had a good understanding wishes to have the hardware removed. I discussed removal of the K wires. We will assess a cerclage wire and remove it if accessible, and if not would leave it. I think she her symptoms are primarily from the transfixing K wires. She had a good understanding wishes to proceed. We will schedule for removal of right patellar fixation hardware 30 minutes spent with the patient with epic review, evaluation of the patient, personal review of diagnostic studies, discussion of surgical treatment and options, documentation and coordination of care. Multiple questions answered. Louie Germain MD documented in this encounter [facility] Note 11-18-2022 Telephone Encounter - Rhiannon Pruett RN - 11/18/2022 3:11 PM EDTTelephone Encounter - Anne Sanches Ma - 11/18/2022 2:35 PM EDT Note Date & Type Note Facility 11-18-2022 Miscellaneous Notes Formattin g of this note might be different from the original. Called patient and let her know that we would like to have the patients operative records from her previous knee surgery. Gave her our fax number. Let her know that if she is unable to get her records by Thursday we would still see her. Patient stated understanding. Tigist Rincon Morton is calling Louie Germain MD today to request Release Of Medical Records Patient calling stating she has appt 11/[address] Germain. States she is not able to get a hold of the doctor in [facility] to ask for records from when she was hospitalized in 07/17/[address] Germain office could try calling them to see if they could get the records? Patient wondering if she has to cancel appt if no records are received before appt? Please advise patient. [facility] Phone- [phone] Fax- [phone] Patient has been identified by name and birthdate. Duration of symptoms: N/A Person calling: self Call patient at: at home [phone] (home) [phone] (work) [phone] (cell) Was an appointment scheduled: No Closing statement: Results or non-symptom based questions: Thank you for calling [facility], your call will be returned within the next business day. Anne Sanches documented in this encounter [facility] Clinical Note 09-12-2021 Note Date & Type Note Facility 09-12-2021 Note PROCEDURE: XR KNEE L T 4V or > COMPARISON: None. HISTORY: Pain FINDINGS: BONES:No acute fracture or dislocation. Minimal enthesopathic spurring of the patella at the quadriceps insertion SOFT TISSUES:Negative. No visible soft tissue swelling. EFFUSION:Small suprapatellar joint effusion OTHER: Negative. IMPRESSION: Small joint effusion Electronically authenticated by: EFRAIN GRANT Date: 2021-09-12 07:36 [facility] Evaluation note Note Date & Type Note Facility Evaluation note Diagnosis Painful orthopaedic hardware (HCC)- Primary Other complications due to other internal orthopedic device, implant, and graft Right knee pain, unspecified chronicity Painful orthopaedic hardware (HCC) Other complications due to other internal orthopedic device, implant, and graft documented in this encounter [facility] Summary Purpose Family History No Family History Records FoundNo Family History Records FoundNo Family History Records FoundNo Family History Records Found Advance Directives No Advanced Directives Records FoundNo Advanced Directives Records FoundNo Advanced Directives Records FoundNo Advanced Directives Records Found Additional Source Comments INFORMATION SOURCE (unrecogn ized section and content) DATE CREATED AUTHOR 02/11/2018 [facility] DATE CREATED AUTHOR AUTHOR'S ORGANIZ ATION 01/24/2022 [facility] DATE CREATED AUTHOR AUTHOR'S ORGANIZ ATION 03/22/2022 [facility] DATE CREATED AUTHOR AUTHOR'S ORGANIZ ATION 11/22/2022 [facility] Source Comments (unrecognize d section and content) In the event this informatio n is protected by the Federal Confidentiality of Alcohol and Drug Abuse Patient Records regulations: The Federal rules restrict any use of the information to criminally investigate or prosecute any alcohol or drug abuse patient.[facility] the event this information is protected by the Federal Confidentiality of Alcohol and Drug Abuse Patient Records regulations: The Federal rules restrict any use of the information to criminally investigate or prosecute any alcohol or drug abuse patient.[facility] Reason for Visit (unrecogniz ed section and content) Reason Comments Release Of Medical Records Reason Comments New Care Teams (unrecognized sec tion and content) 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 This clinical summary was aggregated from multiple sources. Caution should be exercised in using it in the provision of clinical care. This summary normalizes information from multiple sources, and as a consequence, information in this document may materially change the coding, format and clinical context of patient data. In addition, data may be omitted in some cases. CLINICAL DECISIONS SHOULD BE BASED ON THE PRIMARY CLINICAL RECORDS. [facility]. provides no warranty or guarantee of the accuracy or completeness of information in this document.
--- NOTE | 2023-08-20 16:05 | MM_ITS ---
Patient Name: SUMAN BOURNE MR#: [id number] : 1960 Exam Date: 08/20/2023 Ordering Doctor: DR Uday Guerrero . RADIOLOGY REPORT PROCEDURE: MM TOMOSYNTHESIS SCREENING BI COMPARISON: MG MAMM SCREEN 3D ROCIO CAD, 12/18/2020. MG MAMM ROCIO SCRN W CAD DIG, 09/13/2015. MG MAMM ROCIO SCRN W CAD DIG, 09/12/2014. MAMMO ROCIO SCREEN, 01/03/2005. INDICATIONS: screening Calculator Name NCI Breast Cancer Risk Assessment Tool 5 Year Breast Cancer Risk 1.90% Lifetime Breast Cancer Risk 8.90% Personal Breast Cancer No Personal Ovarian Cancer No Treatments None Family Cancers None LOCATION: [facility] BREAST COMPOSITION: Almost entirely fatty. FINDINGS: DIAGNOSTIC CATEGORY 1--NEGATIVE. RIGHT BREAST: No significant suspicious finding. No significant change has occurred. LEFT BREAST: No significant suspicious finding. No significant change has occurred. RECOMMENDATIONS: ROUTINE MAMMOGRAM AND CLINICAL EVALUATION IN 12 MONTHS. PLEASE NOTE: A NORMAL MAMMOGRAM DOES NOT EXCLUDE THE POSSIBILITY OF BREAST CANCER. A CLINICALLY SUSPICIOUS PALPABLE LUMP SHOULD BE BIOPSIED. Dictated by: Heriberto Landa M.D. on 08/21/2023 at 11:53 Approved by: Heriberto Landa M.D. on 08/21/2023 at 11:55
== END 2023-08-20 15:45 | disposition home or self-care (01) ==
LOC: MAMMO 15:44
PROVIDERS: PCP Family Medicine; Visit Provider Family Medicine
DX: Z12.31 Encounter for screening mammogram for malignant neoplasm of breast (principal)
CPT/HCPCS: 77063; 77067

== ENCOUNTER 2023-09-14 13:49 | Outpatient (OUT) | payer OTHER, SELFPAY ==
--- NOTE | 2023-09-14 13:52 | US_ITS ---
The [address] [address] Patient Name: SUMAN BOURNE MRN: [id number] date: 1960 Sex: F Assigned Patient Location: [place] Current Patient Location: [place] Accession/Order Number: [id number] Exam Date: 09/14/2023 13:55 Report Date: 09/14/2023 15:17 At the request of: AASHISH AGUILAR Procedure: US thyroid EXAMINATION: US thyroid HISTORY: thyroid enlargement COMPARISON: No relevant comparison available. TECHNIQUE: Sonographic images of the thyroid gland were obtained. FINDINGS: The right thyroid lobe measures 4.7 x 1.4 x 0.9 cm. 3 subcentimeter nodules. The most suspicious: 0.6 x 0.4 x 0.3 cm. Solid, hypoechoic, wide, smooth margins, no calcifications. TR 4 The thyroid isthmus measures 2 mm. No focal nodule The left thyroid lobe is not visualized consistent with history of left lobe thyroidectomy US/US thyroid IMPRESSION: 3 subcentimeter right thyroid nodules. No follow-up required TI-RADS: The [employer] TI-RADS committee's white paper recommendations for thyroid lesions classified as TR4 (moderately suspicious) are listed below: > 1.0 cm. Follow-up ultrasound in 1, 2, 3, and 5 years. > 1.5 cm. FNA. J. Am Senthil Radiol 2017;14:587-595. Electronically authenticated by: EFRAIN GRANT Date: 09/14/2023 15:17
--- OUTSIDE RECORDS SUMMARY | 2023-09-14 13:52 | XMS_ITS | CCD ---
Author Name Unknown Address [address] [place] [address] Organization [facility] Care Team Providers Care Air Bag Builder Name Role Phone PHYSICIAN, DEFAULT Unavailable Unavailable PHYSICIAN, DEFAULT Unavailable Unavailable LAUREN, DR ZENDEJSA Admitting Unavailable HOY, DR ZENDEJAS Attending Unavailable [...] Unavailable HOY, DR ZENDEJAS Primary Care Unavailable OLIVER, DR EFRAIN Rizzo Consulting Unavailable LAUREN, DR ZENDEJAS Admitting Unavailable LAUREN, DR ZENDEJAS Attending Unavailable LAUREN, DR ZENDEJAS Primary Care Unavailable Aashish Guerrero MD Primary Care Provider [phone] AASHISH GUERRERO Primary Care Unavailable LOUIE GERMAIN [...] Comment on above: Take 1 tablet by nanette th every 8 hours as needed for [...] Test Name Value Interpretation Reference Range Facility [facility] 11-21-2022 CNOV Office Visit (LOORRM) TIGIST MORTON ([id number]) 1960 F Date Time Provider Department 11/21/22 [...] a syncopal episode on 2015 while in [place]. This resulted in a pelvic fracture. She subsequently underwent surgical treatment with fixation using K wire and cerclage wire technique. She subsequently was placed in a knee immobilizer and following up in [place]. She reports being in the knee immobilizer [...] HISTORY: PAST MEDICAL HISTORY Diagnosis Date Epilepsy (FORMERLY [facility]) Glaucoma Hypothyroid SOCIAL HISTORY: Tobacco Use: Never [...] healed patellar fracture. 2 K wires with ekpmou-sj-agvgu cerclage wire. The K wires appear to be prominent both proximally and distally. The lateral wire appears to be migrated distally from prior x-rays IMPRESSION: Encounter Diagnosis ICD-10-CM 1. Painful orthopaedic hardware (FORMERLY [facility]) T84.84XA CONSULT TO(TCI)PRE-OP CLEAR SURGICAL REQUEST - [...] medical problems, (more content not included)... Normal [facility] Elena 11-21-2022 CNPN Telephone (LOORRM) TIGIST MORTON ([id number]) 1960 F Date Time Provider Department 11/21/22 [...] Status:Closed by GUI LEAL on 11/21/22 Normal [facility] XR KNEE 4V AP/PA BOTH+LAT/ME R RTon [...] 4V AP/PA BOTH+LAT/CUCA RT COMPARISON: 2016 RESULT: Hyfzbi-iu-slqxp wire fixation of the patella. K wires [...] STUDY. PATELLA BAJA. 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: [facility] Transcribe Date/Time: Nov 21 2022 4:09P Dictated by : JUAN CARLOS GRACIA MD This examination was interpreted and the report reviewed and electronically signed by: JUAN CARLOS GRACIA MD on Nov 21 2022 4:12PM EST [id number] Normal [facility] Elena 11-18-2022 NADEEM Telephone (4CQ) TIGIST MORTON ([id number]) 1960 F Date Time Provider Department 11/18/22 [...] get a hold of the doctor in [facility] to ask for records from when she was hospitalized in 07/17/[address] Germain office could try calling them to see if they could get the records? Patient wondering if she has to cancel appt if no records are received before appt? Please advise patient. [facility] Phone- [phone] Fax- [phone] Patient has been identified by name and birthdate. Duration of symptoms: N/A Person calling: self Call patient at: at home [phone] (home) [phone] (work) [phone] (cell) Was an appointment scheduled: No Closing statement: Results or non-symptom based questions: Thank you for calling [facility], your call will be returned within [...] Date Reviewed: 01/22/2017 Reviewed by: Lalit Gonzalez) [facility] ([facility] - Fully Assessed Reason for Visit: Release [...] Status:Closed by RHIANNON PRUETT on 11/18/22 Normal [facility] Superficial Wound Cultureon 03-12-2022 Superficial Wound Culture Result Tab Codes 03/13/22 [facility] CARE COORDINATOR PM ORGANISM: Staphylococcus aureus (O:STAAUR) Quantity of [...] RESISTANT TO ALL B-LACTAM DRUGS. PERFORMED BY: [address] [place] [address] PATHOLOGIST MID TEACHER RAMIN BRIDGES M.D. Normal [facility] Comment on above: Performed By: #### C USUP #### [facility] [address] INSULINon 01-06-2022 Insulin 8.1 uIU/mL Normal 2.6-24.9 [facility] Comment on above: Performed By: #### I NSULIN #### [facility] [address] [place] [address] Dr. Ludmila Farooq CBC AUTO DIFFon 01-04-2022 BASO # 0.0 103/ul Normal 0.0-0.1 [facility] Comment on above: Performed By: #### C BC #### [facility] [address] [place] [address] Dr. Ludmila Farooq Basophils/100 WBC (Bld) 0.3 % Normal 0.2-2.0 [facility] Comment on above: Performed By: #### C BC #### [facility] [address] [place] [address] Dr. Ludmila Farooq EO # 0.1 103/ul Normal 0.0-0.7 [facility] Comment on above: Performed By: #### C BC #### [facility] [address] [place] [address] Dr. Ludmila Farooq Eosinophils/100 WBC (Bld) 1.3 % Normal 0.9-7.0 [facility] Comment on above: Performed By: #### C BC #### [facility] [address] [place] [address] Dr. Ludmila Farooq Erythrocyte distribution width (RBC) [Ratio] 13.2 % Normal 11.0-15.0 [facility] Comment on above: Performed By: #### C BC #### [facility] [address] [place] [address] Dr. Ludmila Farooq Hematocrit (Bld) [Volume fraction] 41.7 % Normal 36.0-48.0 [facility] Comment on above: Performed By: #### C BC #### [facility] [address] [place] [address] Dr. Ludmila Farooq Hemoglobin (Bld) [Mass/Vol] 13.5 g/dL Normal 12.0-16.0 [facility] Comment on above: Performed By: #### C BC #### [facility] [address] [place] [address] Dr. Ludmila Farooq IG # 0.01 10e3/ul Normal 0.00-0.03 [facility] Comment on above: Performed By: #### C BC #### [facility] [address] [place] [address] Dr. Ludmila Farooq IG % 0.3 % Normal 0.0-0.5 [facility] Comment on above: Performed By: #### C BC #### [facility] [address] [place] [address] Dr. Ludmila Farooq LYMPH # 1.6 103/ul Normal 1.2-3.8 [facility] Comment on above: Performed By: #### C BC #### [facility] [address] [place] [address] Dr. Ludmila Farooq Lymphocytes/100 WBC (Bld) 40.7 % Normal 20.5-60.0 [facility] Comment on above: Performed By: #### C BC #### [facility] [address] [place] [address] Dr. Ludmila Farooq MANUAL DIFF REQ NO Normal [facility] Comment on above: Performed By: #### C BC #### [facility] [address] [place] [address] Dr. Ludmila Farooq MCH (RBC) [Entitic mass] 30.8 pg Normal 26.7-34.0 [facility] Comment on above: Performed By: #### C BC #### [facility] [address] [place] [address] Dr. Ludmila Farooq MCHC (RBC) [Mass/Vol] 32.4 g/dL Normal 29.9-35.2 [facility] Comment on above: Performed By: #### C BC #### [facility] [address] [place] [address] Dr. Ludmila Farooq MCV (RBC) [Entitic vol] 95.2 fL Normal 81.0-99.0 [facility] Comment on above: Performed By: #### C BC #### [facility] [address] [place] [address] Dr. Ludmila Farooq MONO # 0.3 103/ul Normal 0.3-0.8 [facility] Comment on above: Performed By: #### C BC #### [facility] [address] [place] [address] Dr. Ludmila Farooq Monocytes/100 WBC (Bld) 7.3 % Normal 1.7-12.0 [facility] Comment on above: Performed By: #### C BC #### [facility] [address] [place] [address] Dr. Ludmila Farooq NEUT # 2.0 103/ul Normal 1.4-6.5 [facility] Comment on above: Performed By: #### C BC #### [facility] [address] [place] [address] Dr. Ludmila Farooq Neutrophils/100 WBC (Bld) 50.1 % Normal 43.0-75.0 [facility] Comment on above: Performed By: #### C BC #### [facility] [address] [place] [address] Dr. Ludmila Farooq Platelet mean volume (Bld) [Entitic vol] 10.5 fL Normal 9.5-13.5 [facility] Comment on above: Performed By: #### C BC #### [facility] [address] [place] [address] Dr. Ludmila Farooq PLT 236 103/ul Normal 150-450 [facility] Comment on above: Performed By: #### C BC #### [facility] [address] [place] [address] Dr. Ludmila Farooq RBC 4.38 106/ul Normal 4.20-5.40 [facility] Comment on above: Performed By: #### C BC #### [facility] [address] [place] [address] Dr. Ludmila Farooq WBC 4.0 103/ul Normal 4.0-11.0 [facility] Comment on above: Performed By: #### C BC #### [facility] [address] [place] [address] Dr. Ludmila Farooq FREE THYROXINE INDEX T7on FTI 3.22 Normal 1.30-4.50 [facility] Comment on above: Performed By: #### C MP, T7, LIPID, TSH #### [facility] [address] [place] [address] Dr. Ludmila Faroqo T3U 37.0 % Normal 30.0-39.0 [facility] Comment on above: Performed By: #### C MP, T7, LIPID, TSH #### [facility] [address] [place] [address] Dr. Ludmila Farooq T4 [Mass/Vol] 8.70 ug/dL Normal 4.80-13.90 [facility] Comment on above: Performed By: #### C MP, T7, LIPID, TSH #### [facility] [address] [place] [address] Dr. Ludmila Farooq GLYCOHEMOGLOBIN A1Con 2021 ADA RECOMMENDATION SEE BELOW Normal [facility] Comment on above: Result Comment: ADA RECOMMENDED LIMIT 4.0 - 6.0 ADA THERAPEUTIC TARGET < 7.0 ACTION SUGGESTED > 7.0 Performed By: #### A 1C #### [facility] [address] [place] [address] Dr. Ludmila Farooq Glucose [Mass/Vol] 111 mg/dL Normal [facility] Comment on above: Performed By: #### A 1C #### [facility] [address] [place] [address] Dr. Ludmila Farooq HbA1c (Bld) [Mass fraction] 5.5 % Normal 4.5-6.2 [facility] Comment on above: Performed By: #### A 1C #### [facility] [address] [place] [address] Dr. Ludmila Farooq IRONon 01-04-2022 Iron [Mass/Vol] 110.0 ug/dL Normal 50.0-170.0 [facility] Comment on above: Performed By: #### I DEVENDRA #### [facility] [address] [address] [address] Ludmila Farooq LIPID PROFILEon 01-04-2022 CHOL-HDL RATIO NORM SEE BELOW Normal [facility] Comment on above: Result Comment: 3.3 - 4.4 LOW RISK 4.4 - 7.1 AVERAGE RISK 7.1 - 11.0 MODERATE RISK >11.0 HIGH RISK Performed By: #### C MP, T7, LIPID, TSH #### [facility] [address] [address] [address] Ludmila Farooq Cholesterol [Mass/Vol] 267 mg/dL Critically high <=200 [facility] Comment on above: Performed By: #### C MP, T7, LIPID, TSH #### [facility] [address] [place] [address] Dr. Ldumila Farooq Cholesterol in HDL [Mass/Vol] 84 mg/dL Critically high 40-60 [facility] Comment on above: Performed By: #### C MP, T7, LIPID, TSH #### [facility] [address] [address] [address] Ludmila Farooq Cholesterol in LDL [Mass/Vol] 172.0 mg/dL Normal [facility] Comment on above: Performed By: #### C MP, T7, LIPID, TSH #### [facility] [address] [address] [address] Ludmila Farooq Cholesterol.total/Cho lesterol in HDL [Mass ratio] 3.2 {ratio} Normal [facility] Comment on above: Performed By: #### C MP, T7, LIPID, TSH #### [facility] [address] [place] [address] Dr. Ludmila Farooq HDL NORMAL > or = 60 mg/dl - LOW CARDIOVASCULAR RISK <40 mg/dl - HIGH CARDIOVASCULAR RISK Normal [facility] Comment on above: Performed By: #### C MP, T7, LIPID, TSH #### [facility] [address] [place] [address] Dr. Ludmila Farooq LDL CALC NORMAL SEE BELOW Normal [facility] Comment on above: Result Comment: <100 mg/dl OPTIMAL 100 - 129 mg/dl NEAR OR ABOVE OPTIMAL 130 - 159 mg/dl BORDERLINE HIGH 160 - 189 mg/dl HIGH >190 mg/dl VERY HIGH Performed By: #### C MP, T7, LIPID, TSH #### [facility] [address] [address] [address] Ludmila Farooq Triglyceride [Mass/Vol] 55 mg/dL Normal <=150 [facility] Comment on above: Performed By: #### C MP, T7, LIPID, TSH #### [facility] [address] [address] [address] Ludmila Farooq VLDL CALC 11.0 mg/dL Normal [facility] Comment on above: Performed By: #### C MP, T7, LIPID, TSH #### [facility] [address] [address] [address] Ludmila Farooq OCC BLD IMMUNO SCREENon 12-22 OCCULT BLOOD Negative Normal NEGATIVE [facility] Comment on above: Performed By: #### O BSCRN #### [facility] [address] [place] [address] Dr. Ludmila Farooq PROF 14(COMP METB)on 022 Albumin [Mass/Vol] 3.4 g/dL Normal 3.4-5.0 [facility] Comment on above: Performed By: #### C MP, T7, LIPID, TSH #### [facility] [address] [place] [address] Dr. Ludmila Farooq Albumin/Globulin [Mass ratio] 1.0 {ratio} Normal [facility] Comment on above: Performed By: #### C MP, T7, LIPID, TSH #### [facility] [address] [place] [address] Dr. Ludmila Farooq ALP [Catalytic activity/Vol] 93 U/L Normal 46-116 [facility] Comment on above: Performed By: #### C MP, T7, LIPID, TSH #### [facility] [address] [place] [address] Dr. Ludmila Farooq ALT [Catalytic activity/Vol] 22 U/L Normal 14-59 [facility] Comment on above: Performed By: #### C MP, T7, LIPID, TSH #### [facility] [address] [place] [address] Dr. Ludmila Farooq Anion gap [Moles/Vol] 9.1 mmol/L Normal [facility] Comment on above: Performed By: #### C MP, T7, LIPID, TSH #### [facility] [address] [address] [address] Ludmila Farooq AST [Catalytic activity/Vol] 17 U/L Normal 15-37 [facility] Comment on above: Performed By: #### C MP, T7, LIPID, TSH #### [facility] [address] [address] [address] Ludmila Farooq Bilirubin [Mass/Vol] 0.7 mg/dL Normal 0.2-1.0 [facility] Comment on above: Performed By: #### C MP, T7, LIPID, TSH #### [facility] [address] [place] [address] Dr. Ludmila Farooq Calcium [Mass/Vol] 8.7 mg/dL Normal 8.5-10.1 [facility] Comment on above: Performed By: #### C MP, T7, LIPID, TSH #### [facility] [address] [address] [address] Ludmila Farooq Chloride [Moles/Vol] 103 mmol/L Normal 98-107 [facility] Comment on above: Performed By: #### C MP, T7, LIPID, TSH #### [facility] [address] [place] [address] Dr. Ludmila Farooq CO2 [Moles/Vol] 31.7 mmol/L Normal 21.0-32.0 [facility] Comment on above: Performed By: #### C MP, T7, LIPID, TSH #### [facility] [address] [place] [address] Dr. Ludmila Farooq Creatinine [Mass/Vol] 0.82 mg/dL Normal 0.55-1.02 [facility] Comment on above: Performed By: #### C MP, T7, LIPID, TSH #### [facility] [address] [place] [address] Dr. Ludmila Farooq EGFR-AF NEPALESE >60 Normal >=60 [facility] Comment on above: Performed By: #### C MP, T7, LIPID, TSH #### [facility] [address] [address] [address] Ludmila Farooq EGFR-NON AF NEPALESE >60 Normal >=60 [facility] Comment on above: Performed By: #### C MP, T7, LIPID, TSH #### [facility] [address] [address] [address] Ludmila Farooq Globulin (S) [Mass/Vol] 3.4 g/dL Normal [facility] Comment on above: Performed By: #### C MP, T7, LIPID, TSH #### [facility] [address] [place] [address] Dr. Ludmila Farooq Glucose [Mass/Vol] 91 mg/dL Normal 74-106 [facility] Comment on above: Performed By: #### C MP, T7, LIPID, TSH #### [facility] [address] [place] [address] Dr. Ludmila Farooq Potassium [Moles/Vol] 3.8 mmol/L Normal 3.5-5.1 [facility] Comment on above: Performed By: #### C MP, T7, LIPID, TSH #### [facility] [address] [address] [address] Ludmila Farooq Protein [Mass/Vol] 6.8 g/dL Normal 6.4-8.[address] [facility] Comment on above: Performed By: #### C MP, T7, LIPID, TSH #### [facility] [address] [place] [address] Dr. Ludmila Farooq Sodium [Moles/Vol] 140 mmol/L Normal 136-[address] [facility] Comment on above: Performed By: #### C MP, T7, LIPID, TSH #### [facility] [address] [place] [address] Dr. Ludmila Farooq Urea nitrogen [Mass/Vol] 16.0 mg/dL Normal 7.0-18.0 [facility] Comment on above: Performed By: #### C MP, T7, LIPID, TSH #### [facility] [address] [place] [address] Dr. Ludmila Farooq Urea nitrogen/Creatinine [Mass ratio] 19.5 mg/mg Normal [facility] Comment on above: Performed By: #### C MP, T7, LIPID, TSH #### [facility] [address] [place], [place] [address] Dr. Ludmila Farooq TSHon 01-04-2022 TSH 0.608 uIU/mL Normal 0.358-3.740 [facility] Comment on above: Performed By: #### C MP, T7, LIPID, TSH ####[facility] [id number] [place], [place] [address]IuDr. Ludmila Farooq TSH RANGE SEE BELOW Normal [facility] Comment on above: Result Comment: <0.3 4 UIU/ml HYPERTHYROID 0.34-5.60 UIU/ml EUTHYROID >5.60 UIU/ml HYPOTHYROID Performed By: #### C MP, T7, LIPID, TSH ####[facility] [id number] [place], [place] [address]MdDr. Ludmila Farooq XR RIBS RT PA Gage [...] by: BHARATHI SHAHID Date: 2021-11-26 07:07 Normal [facility] Vital Signs Date Time Vital Sign Value Performing Clinician Faci lity 11-21-2022 14:20-0400 Body weight 69.85 kg Louie Germain MD Work Phone: [facility] Encounters Encounter Date Encounter Type Care Provider Facility Start: 11-21-2022 End: 11-21-2022 ambulatory AASHISH GUERRERO Facility:[facility] Start: 11-21-2022 End: 11-21-2022 Patient encounter procedure Louie Germain MD Work Phone: Orthopaedics Comment on above: Painful orthopaedic hardware (HCC) (Primary Dx); Right knee pain, unspecified chronicity Start: 11-18-2022 Telephone encounter Louie hughes MD Work Phone: [address] [place] [address] Comment on above: Release Of Medical R ecords Start: 03-25-[address] AASHISH GUERRERO Facility :[facility] Start: 01-08-2022 Encounter for genera l adult medical examination without abnormal findings DR AASHISH GUERRERO [facility] Start: 01-04-2022 End: 01-05-[address] AASHISH GUERRERO Facility:[facility] Start: 01-04-2022 End: 01-05-2022 Encounter for general adult medical examination without abnormal findings DR AASHISH GUERRERO Facility:[facility] Start: 11-25-2021 End: 11-26-[address] AASHISH GUERRERO Facility:[facility] Start: 09-11-2021 End: 09-12-[address] AASHISH GUERRERO Facility:[facility] Start: 12-21-2017 End: 12-22-2017 Ambulatory DEFAULT PHYSICIAN Facility:[facility] Plan of Treatment Date Care Activity Detail Author Start: 08-24-2022 DEPRESSION ASSESSMENT DEPRESSION ASS ESSMENT [facility] Start: 04-24-2022 Influenza vaccination INFLUENZA (#1) [facility] Start: 10-10-2021 COVID-19 VACCINE (4 - Booster for Moderna series) COVID-19 VACCINE (4 - Booster for Moderna series) [facility] Start: 09-12-2016 DIABETES SCREEN DIABETES SCREEN [facility] Start: 01-01-2012 SHINGRIX VACCINE (1 of 2) SHINGRIX V ACCINE (1 of 2) [facility] Start: 2006 COLOGUARD (FIT-DNA) COLOGUARD (FIT-D NA) [facility] Start: 2006 Colonoscopy COLONOSCOPY [facility] Start: 2006 COLORECTAL CANCER SCREENING COLORECTAL CANCER SCREENING [facility] Start: [address] COLONOGRAPHY [facility] Start: 2006 FECAL OCCULT BLOOD FECAL OCCULT BLOO D [facility] Start: 2006 LIPID SCREEN LIPID SCREEN [facility] Start: 2006 SIGMOIDOSCOPY SIGMOIDOSCOPY [facility] Start: 2001 Mammography MAMMOGRAM [facility] Start: 01-01-1992 HPV TESTING HPV TESTING [facility] Start: 1982 PAP TESTING PAP TESTING [facility] Start: 1980 Urine microalbumin profile DTAP,TDAP ,TD (1 - Tdap) [facility] Start: 01-01-1980 HEPATITIS C SCREENING HEPATITIS C SC REENING [facility] Start: 01-01-1980 [facility] Start: 07-03-1962 COVID-19 VACCINE (#1) COVID-19 VACCI NE (#1) [facility] Payers Date Payer Category Payer Unknown 1960 Unknown [id number] 1960 Unknown [id number] [id number] 1960 Unknown [id number] [id number] [id number] 1960 Unknown [id number] 1958 Self-pay 1958 Unknown [id number] Social History Date Type Detail Facility [facility]: [facility]06[facility]2013 [facility] Start: 09-06-2013 Tobacco use and exposure Smoke less tobacco non-user [facility] Start: 03-25-2015 Alcohol intake Current drinke r of alcohol (finding) [facility] Start: 1960 Sex Assigned At Not on file C [facility] Medical Equipment Procedure Code Equipment Code Equipment Origin al Text Equipment Identifier Dates Restorelle L-Mes h - [id number] Start: 09-12-2013 Mesh Trnvg Jg 45x1.1cm Gyncr - [id number] Start: 09-12-2013 Progress note 11-21-2022 Note Date & Type Note Facility 11-21-2022 Note HNO ID: [id number] Author: Louie Germain MD Service: ? Author [...] a syncopal episode on 2015 while in [place]. This resulted in a pelvic fracture. She subsequently underwent surgical treatment with fixation using K wire and cerclage wire technique. She subsequently was placed in a knee immobilizer and following up in [place]. She reports being in the knee immobilizer [...] healed patellar fracture. 2 K wires with qvtykv-dv-[id number] cerclage wire. The K wires appear to be prominent both proximally and distally. The lateral wire appears to be migrated distally from prior x-rays IMPRESSION: Encounter Diagnosis ICD-10-CM 1. Painful orthopaedic hardware ([facility]) T84.84XA CONSULT TO(TCI)PRE-OP CLEAR SURGICAL REQUEST - [...] the hardware r (more content not included)... [facility] Progress note 11-21-2022 Note Date & Type Note Facility 11-21-2022 Note HNO ID: [id number] Author: Randi Sorensen RT(R) Service: ? Author [...] RT New(R) November 21, 2022 2:12 PM [facility] History of Present illness Narrative 11-21-2022 Louie [...] a syncopal episode on 2015 while in [place]. This resulted in a pelvic fracture. She subsequently underwent surgical treatment with fixation using K wire and cerclage wire technique. She subsequently was placed in a knee immobilizer and following up in [place]. She reports being in the knee immobilizer [...] healed patellar fracture. 2 K wires with qgiwgc-wz-gimfc cerclage wire. The K wires appear to [...] Louie Germain MD documented in this encounter [facility] Note 11-18-2022 Telephone Encounter - Rhiannon [...] get a hold of the doctor in [facility] to ask for records from when she was hospitalized in 07/17/[address] Germain office could try calling them to see if they could get the records? Patient wondering if she has to cancel appt if no records are received before appt? Please advise patient. [facility] Phone- [phone] Fax- [phone] Patient has been identified by name and birthdate. Duration of symptoms: N/A Person calling: self Call patient at: at home [phone] (home) [phone] (work) [phone] (cell) Was an appointment scheduled: No Closing statement: Results or non-symptom based questions: Thank you for calling [facility], your call will be returned within the next business day. Anne Sanches documented in this encounter [facility] Clinical Note 09-12-2021 Note Date & [...] by: EFRAIN GRANT Date: 2021-09-12 07:36 [facility] Evaluation note Note Date & Type Note Facility Evaluation note Diagnosis Painful orthopaedic hardware (HCC)- Primary Other complications due to other internal orthopedic device, implant, and graft Right knee pain, unspecified chronicity Painful orthopaedic hardware (HCC) Other complications due to other internal orthopedic device, implant, and graft documented in this encounter [facility] Summary Purpose Family History No Family History Records FoundNo Family History Records FoundNo Family History Records FoundNo Family History Records Found Advance Directives No Advanced Directives Records FoundNo Advanced Directives Records FoundNo Advanced Directives Records FoundNo Advanced Directives Records Found Additional Source Comments INFORMATION SOURCE (unrecogn ized section and content) DATE CREATED AUTHOR 02/11/2018 [facility] DATE CREATED AUTHOR AUTHOR'S ORGANIZ ATION 01/24/2022 [facility] DATE CREATED AUTHOR AUTHOR'S ORGANIZ ATION 03/22/2022 [facility] DATE CREATED AUTHOR AUTHOR'S ORGANIZ ATION 11/22/2022 [facility] Source Comments (unrecognize d section and content) In the event this informatio n is protected by the Federal Confidentiality of Alcohol and Drug Abuse Patient Records regulations: The Federal rules restrict any use of the information to criminally investigate or prosecute any alcohol or drug abuse patient[facility] the event this information is protected by the Federal Confidentiality of Alcohol and Drug Abuse Patient Records regulations: The Federal rules restrict any use of the information to criminally investigate or prosecute any alcohol or drug abuse patient.[facility] Reason for Visit (unrecogniz ed section and content) Reason Comments Release Of Medical Records Reason Comments New Care Teams (unrecognized sec tion and content) [employer] Relationship Specialty Start Date End Date Aashish Guerrero MD PCP - General Family Medicine 08/05/13 [employer] Relationship Specialty Start Date End Date Aashish [...] BE BASED ON THE PRIMARY CLINICAL RECORDS. [employer] [facility]. provides no warranty or guarantee of the accuracy or completeness of information in this document.
== END 2023-09-14 13:50 | disposition home or self-care (01) ==
LOC: US 13:49
PROVIDERS: PCP Family Medicine; Visit Provider Family Medicine
DX: E04.9 Nontoxic goiter, unspecified (principal)
CPT/HCPCS: 76536

== ENCOUNTER 2024-01-27 07:39 | Outpatient (OUT) | payer OTHER, SELFPAY ==
--- OUTSIDE RECORDS SUMMARY | 2024-01-27 07:44 | XMS_ITS | CCD ---
Author Organization [facility] Care Team Providers Care Organ Tuner Electronic Name Role Phone PHYSICIAN, DEFAULT Unavailable Unavailable PHYSICIAN, DEFAULT Unavailable Unavailable LAUREN, DR ZENDEJAS Admitting Unavailable HOY, DR ZENDEJAS Attending Unavailable HOY, DR ZENDEJAS Consulting Unavailable HOANGY, DR ZENDEJAS Primary Care Unavailable HOY, DR ZENDEJAS Admitting Unavailable HOY, DR ZENDEJAS Attending Unavailable HOY, DR ZENDEJAS Consulting Unavailable HOANGY, DR ZENDEJAS Primary Care Unavailable ZIEBER, DR BHARATHI Jeff Consulting Unavailable HOANGY, DR ZENDEJAS Admitting Unavailable HOY, DR ZENDEJAS Attending Unavailable HOY, DR ZENDEJAS Consulting Unavailable HOANGY, DR ZENDEJAS Primary Care Unavailable COVINGTON, DR EFRAIN Rizzo Consulting Unavailable HOANGY, DR ZENDEJAS Admitting Unavailable HOY, DR ZENDEJAS Attending Unavailable LAUREN, DR ZENDEJAS Primary Care Unavailable Aashish Guerrero MD Primary Care Provider [phone] AASHISH GUERRERO Primary Care Unavailable LOUIE GERMAIN [...] Test Name Value Interpretation Reference Range Facility [facility] 11-21-2022 CNOV Office Visit (LOORRM) TIGIST MORTON ([id number]) 1960 F Date Time Provider Department 11/21/22 [...] a syncopal episode on 2015 while in [place]. This resulted in a pelvic fracture. She subsequently underwent surgical treatment with fixation using K wire and cerclage wire technique. She subsequently was placed in a knee immobilizer and following up in [place]. She reports being in the knee immobilizer [...] HISTORY: PAST MEDICAL HISTORY Diagnosis Date Epilepsy ([facility]) Glaucoma Hypothyroid SOCIAL HISTORY: Tobacco Use: Never [...] healed patellar fracture. 2 K wires with pswqev-uk-gyaoe cerclage wire. The K wires appear to be prominent both proximally and distally. The lateral wire appears to be migrated distally from prior x-rays IMPRESSION: Encounter Diagnosis ICD-10-CM 1. Painful orthopaedic hardware ([facility]) T84.84XA CONSULT TO(TCI)PRE-OP CLEAR SURGICAL REQUEST - [...] medical problems, (more content not included)... Normal [facility] Elena 11-21-2022 CNPN Telephone (LOORRM) TIGIST MORTON ([id number]) 1960 F Date Time Provider Department 11/21/22 [...] Status:Closed by GUI LEAL on 11/21/22 Normal [facility] XR KNEE 4V AP/PA BOTH+LAT/ME R [...] 4V AP/PA BOTH+LAT/CUCA RT COMPARISON: 2016 RESULT: Efkfmt-ae-qklyl wire fixation of the patella. K wires [...] STUDY. PATELLA BAJA. OSTEOARTHRITIS, SIMILAR TO PRIOR Edge Sander: LADONNA Transcribe Date/Time: Nov 21 2022 4:09P Dictated by : JUAN CARLOS GRACIA MD This examination was interpreted and the report reviewed and electronically signed by: JUAN CARLOS GRACIA MD on Nov 21 2022 4:12PM EST [id number] Normal [facility] CNPEliana 11-18-2022 CNPN Telephone (4CQ) TIGIST MORTON ([id number]) 1960 F Date Time Provider Department 11/18/22 [...] get a hold of the doctor in [facility] to ask for records from when she was hospitalized in 07/17/[address] Germain office could try calling them to see if they could get the records? Patient wondering if she has to cancel appt if no records are received before appt? Please advise patient. [facility] Phone- [phone] Fax- [phone] Patient has been identified by name and birthdate. Duration of symptoms: N/A Person calling: self Call patient at: at home [phone] (home) [phone] (work) [phone] (cell) Was an appointment scheduled: No Closing statement: Results or non-symptom based questions: Thank you for calling [facility], your call will be returned within [...] Allergies) Date Reviewed: 01/22/2017 Reviewed by: Lalit Corea [facility] - Fully Assessed Reason for Visit: Release [...] Encounter Status:Closed by RHIANNON PRUETT on 11/18/22 [facility] Superficial Wound Cultureon 03-12-2022 Superficial Wound Culture Result Tab Codes 03/13/22 LMP HSE ADVISOR PM ORGANISM: Staphylococcus aureus (O:STAAUR) Quantity of [...] RESISTANT TO ALL B-LACTAM DRUGS. PERFORMED BY: [address] [place] [address] PATHOLOGIST ICEBOX WORKER RAMNI BRIDGES M.D. Normal [facility] Comment on above: Performed By: #### C USUP #### [facility] [address] INSULINon 01-06-2022 Insulin 8.1 uIU/mL Normal 2.6-24.9 [facility] Comment on above: Performed By: #### I NSULIN #### [facility] [address] [address] [address] Ludmila Farooq CBC AUTO DIFFon 01-04-2022 BASO # 0.0 103/ul Normal 0.0-0.1 [facility] Comment on above: Performed By: #### C BC #### [facility] [address] [address] [address] Ludmila Farooq Basophils/100 WBC (Bld) 0.3 % Normal 0.2-2.0 [facility] Comment on above: Performed By: #### C BC #### [facility] [address] [address] [address] Ludmila Farooq EO # 0.1 103/ul Normal 0.0-0.7 [facility] Comment on above: Performed By: #### C BC #### [facility] [address] [address] [address] Ludmila Farooq Eosinophils/100 WBC (Bld) 1.3 % Normal 0.9-7.0 [facility] Comment on above: Performed By: #### C BC #### [facility] [address] [address] [address] Ludmila Farooq Erythrocyte distribution width (RBC) [Ratio] 13.2 % Normal 11.0-15.0 [facility] Comment on above: Performed By: #### C BC #### [facility] [address] [address] [address] Ludmila Farooq Hematocrit (Bld) [Volume fraction] 41.7 % Normal 36.0-48.0 [facility] Comment on above: Performed By: #### C BC #### [facility] [address] [address] [address] Ludmila Farooq Hemoglobin (Bld) [Mass/Vol] 13.5 g/dL Normal 12.0-16.0 [facility] Comment on above: Performed By: #### C BC #### [facility] [address] [place] [address] Dr. Ludmila Farooq IG # 0.01 10e3/ul Normal 0.00-0.03 [facility] Comment on above: Performed By: #### C BC #### [facility] [address] [place] [address] Dr. Ludmila Farooq IG % 0.3 % Normal 0.0-0.5 [facility] Comment on above: Performed By: #### C BC #### [facility] [address] [place] [address] Dr. Ludmila Farooq LYMPH # 1.6 103/ul Normal 1.2-3.8 [facility] Comment on above: Performed By: #### C BC #### [facility] [address] [place] [address] Dr. Ludmila Farooq Lymphocytes/100 WBC (Bld) 40.7 % Normal 20.5-60.0 [facility] Comment on above: Performed By: #### C BC #### [facility] [address] [place] [address] Dr. Ludmila Farooq MANUAL DIFF REQ NO Normal [facility] Comment on above: Performed By: #### C BC #### [facility] [address] [place] [address] Dr. Ludmila Farooq MCH (RBC) [Entitic mass] 30.8 pg Normal 26.7-34.0 [facility] Comment on above: Performed By: #### C BC #### [facility] [address] [place] [address] Dr. Ludmila Farooq MCHC (RBC) [Mass/Vol] 32.4 g/dL Normal 29.9-35.2 [facility] Comment on above: Performed By: #### C BC #### [facility] [address] [place] [address] Dr. Ludmila Farooq MCV (RBC) [Entitic vol] 95.2 fL Normal 81.0-99.0 [facility] Comment on above: Performed By: #### C BC #### [facility] [address] [place] [address] Dr. Ludmila Farooq MONO # 0.3 103/ul Normal 0.3-0.8 [facility] Comment on above: Performed By: #### C BC #### [facility] [address] [place] [address] Dr. Ludmila Farooq Monocytes/100 WBC (Bld) 7.3 % Normal 1.7-12.0 [facility] Comment on above: Performed By: #### C BC #### [facility] [address] [place] [address] Dr. Ludmila Farooq NEUT # 2.0 103/ul Normal 1.4-6.5 [facility] Comment on above: Performed By: #### C BC #### [facility] [address] [place] [address] Dr. Ludmila Farooq Neutrophils/100 WBC (Bld) 50.1 % Normal 43.0-75.0 [facility] Comment on above: Performed By: #### C BC #### [facility] [address] [place] [address] Dr. Ludmila Farooq Platelet mean volume (Bld) [Entitic vol] 10.5 fL Normal 9.5-13.5 [facility] Comment on above: Performed By: #### C BC #### [facility] [address] [place] [address] Dr. Ludmila Farooq PLT 236 103/ul Normal 150-450 [facility] Comment on above: Performed By: #### C BC #### [facility] [address] [place] [address] Dr. Ludmila Farooq RBC 4.38 106/ul Normal 4.20-5.40 [facility] Comment on above: Performed By: #### C BC #### [facility] [address] [place] [address] Dr. Ludmila Farooq WBC 4.0 103/ul Normal 4.0-11.0 [facility] Comment on above: Performed By: #### C BC #### [facility] [address] [place] [address] Dr. Ludmila Farooq FREE THYROXINE INDEX T7on FTI 3.22 Normal 1.30-4.50 [facility] Comment on above: Performed By: #### C MP, T7, LIPID, TSH #### [facility] [address] [place] [address] Dr. Ludmila Farooq T3U 37.0 % Normal 30.0-39.0 [facility] Comment on above: Performed By: #### C MP, T7, LIPID, TSH #### [facility] [address] [address] [address] Ludmila Farooq T4 [Mass/Vol] 8.70 ug/dL Normal 4.80-13.90 [facility] Comment on above: Performed By: #### C MP, T7, LIPID, TSH #### [facility] [address] [place] [address] Dr. Ludmila Farooq GLYCOHEMOGLOBIN A1Con 2021 ADA RECOMMENDATION SEE BELOW Normal [facility] Comment on above: Result Comment: ADA RECOMMENDED LIMIT 4.0 - 6.0 ADA THERAPEUTIC TARGET < 7.0 ACTION SUGGESTED > 7.0 Performed By: #### A 1C #### [facility] [address] [place] [address] Dr. Ludmila Farooq Glucose [Mass/Vol] 111 mg/dL Normal [facility] Comment on above: Performed By: #### A 1C #### [facility] [address] [place] [address] Dr. Ludmila Farooq HbA1c (Bld) [Mass fraction] 5.5 % Normal 4.5-6.2 [facility] Comment on above: Performed By: #### A 1C #### [facility] [address] [place] [address] Dr. Ludmila Farooq IRONon 01-04-2022 Iron [Mass/Vol] 110.0 ug/dL Normal 50.0-170.0 [facility] Comment on above: Performed By: #### I DEVENDRA #### [facility] [address] [place] [address] Dr. Ludmila Farooq LIPID PROFILEon 01-04-2022 CHOL-HDL RATIO NORM SEE BELOW Normal [facility] Comment on above: Result Comment: 3.3 - 4.4 LOW RISK 4.4 - 7.1 AVERAGE RISK 7.1 - 11.0 MODERATE RISK >11.0 HIGH RISK Performed By: #### C MP, T7, LIPID, TSH #### [facility] [address] [address] [address] Ludmila Farooq Cholesterol [Mass/Vol] 267 mg/dL Critically high <=200 [facility] Comment on above: Performed By: #### C MP, T7, LIPID, TSH #### [facility] [address] [address] [address] Ludmila Farooq Cholesterol in HDL [Mass/Vol] 84 mg/dL Critically high 40-60 [facility] Comment on above: Performed By: #### C MP, T7, LIPID, TSH #### [facility] [address] [place] [address] Dr. Ludmila Farooq Cholesterol in LDL [Mass/Vol] 172.0 mg/dL Normal [facility] Comment on above: Performed By: #### C MP, T7, LIPID, TSH #### [facility] [address] [address] [address] Ludmila Farooq Cholesterol.total/Cho lesterol in HDL [Mass ratio] 3.2 {ratio} Normal [facility] Comment on above: Performed By: #### C MP, T7, LIPID, TSH #### [facility] [address] [address] [address] Ludmila Farooq HDL NORMAL > or = 60 mg/dl - LOW CARDIOVASCULAR RISK <40 mg/dl - HIGH CARDIOVASCULAR RISK Normal [facility] Comment on above: Performed By: #### C MP, T7, LIPID, TSH #### [facility] [address] [place] [address] Dr. Ludmila Farooq LDL CALC NORMAL SEE BELOW Normal [facility] Comment on above: Result Comment: <100 mg/dl OPTIMAL 100 - 129 mg/dl NEAR OR ABOVE OPTIMAL 130 - 159 mg/dl BORDERLINE HIGH 160 - 189 mg/dl HIGH >190 mg/dl VERY HIGH Performed By: #### C MP, T7, LIPID, TSH #### [facility] [address] [address] [address] Ludmila Farooq Triglyceride [Mass/Vol] 55 mg/dL Normal <=150 [facility] Comment on above: Performed By: #### C MP, T7, LIPID, TSH #### [facility] [address] [address] [address] Ludmila Farooq VLDL CALC 11.0 mg/dL Normal [facility] Comment on above: Performed By: #### C MP, T7, LIPID, TSH #### [facility] [address] [address] [address] Ludimla Farooq OCC BLD IMMUNO SCREENon 12-22 OCCULT BLOOD Negative Normal NEGATIVE [facility] Comment on above: Performed By: #### O BSCRN #### [facility] [address] [place] [address] Dr. Ludmila Farooq PROF 14(COMP METB)on 022 Albumin [Mass/Vol] 3.4 g/dL Normal 3.4-5.0 [facility] Comment on above: Performed By: #### C MP, T7, LIPID, TSH #### [facility] [address] [place] [address] Dr. Ludmila Farooq Albumin/Globulin [Mass ratio] 1.0 {ratio} Normal [facility] Comment on above: Performed By: #### C MP, T7, LIPID, TSH #### [facility] [address] [place] [address] Dr. Ludmila Farooq ALP [Catalytic activity/Vol] 93 U/L Normal 46-116 [facility] Comment on above: Performed By: #### C MP, T7, LIPID, TSH #### [facility] [address] [address] [address] Ludmila Farooq ALT [Catalytic activity/Vol] 22 U/L Normal 14-59 [facility] Comment on above: Performed By: #### C MP, T7, LIPID, TSH #### [facility] [address] [address] [address] Ludmila Farooq Anion gap [Moles/Vol] 9.1 mmol/L Normal [facility] Comment on above: Performed By: #### C MP, T7, LIPID, TSH #### [facility] [address] [address] [address] Ludmila Farooq AST [Catalytic activity/Vol] 17 U/L Normal 15-37 [facility] Comment on above: Performed By: #### C MP, T7, LIPID, TSH #### [facility] [address] [address] [address] Ludmila Farooq Bilirubin [Mass/Vol] 0.7 mg/dL Normal 0.2-1.0 [facility] Comment on above: Performed By: #### C MP, T7, LIPID, TSH #### [facility] [address] [place] [address] Dr. Ludmila Farooq Calcium [Mass/Vol] 8.7 mg/dL Normal 8.5-10.1 [facility] Comment on above: Performed By: #### C MP, T7, LIPID, TSH #### [facility] [address] [place] [address] Dr. Ludmila Farooq Chloride [Moles/Vol] 103 mmol/L Normal 98-107 [facility] Comment on above: Performed By: #### C MP, T7, LIPID, TSH #### [facility] [address] [place] [address] Dr. Ludmila Farooq CO2 [Moles/Vol] 31.7 mmol/L Normal 21.0-32.0 [facility] Comment on above: Performed By: #### C MP, T7, LIPID, TSH #### [facility] [address] [place] [address] Dr. Ludmila Farooq Creatinine [Mass/Vol] 0.82 mg/dL Normal 0.55-1.02 [facility] Comment on above: Performed By: #### C MP, T7, LIPID, TSH #### [facility] [address] [place] [address] Dr. Ludmila Farooq EGFR-AF [facility] >60 Normal >=60 [facility] Comment on above: Performed By: #### C MP, T7, LIPID, TSH #### [facility] [address] [address] [address] Ludmila Farooq EGFR-NON AF [facility] >60 Normal >=60 [facility] Comment on above: Performed By: #### C MP, T7, LIPID, TSH #### [facility] [address] [address] [address] Ludmila Farooq Globulin (S) [Mass/Vol] 3.4 g/dL Normal [facility] Comment on above: Performed By: #### C MP, T7, LIPID, TSH #### [facility] [address] [address] [address] Ludmila Farooq Glucose [Mass/Vol] 91 mg/dL Normal 74-106 [facility] Comment on above: Performed By: #### C MP, T7, LIPID, TSH #### [facility] [address] [address] [address] Ludmila Farooq Potassium [Moles/Vol] 3.8 mmol/L Normal 3.5-5.1 [facility] Comment on above: Performed By: #### C MP, T7, LIPID, TSH #### [facility] [address] [address] [address] Ludmila Farooq Protein [Mass/Vol] 6.8 g/dL Normal 6.4-8.2 [facility] Comment on above: Performed By: #### C MP, T7, LIPID, TSH #### [facility] [address] [address] [address] Ludmila Farooq Sodium [Moles/Vol] 140 mmol/L Normal 136-145 [facility] Comment on above: Performed By: #### C MP, T7, LIPID, TSH #### [facility] [address] [address] [address] Ludmila Farooq Urea nitrogen [Mass/Vol] 16.0 mg/dL Normal 7.0-18.0 [facility] Comment on above: Performed By: #### C MP, T7, LIPID, TSH #### [facility] [address] [address] [address] Ludmila Farooq Urea nitrogen/Creatinine [Mass ratio] 19.5 mg/mg Normal [facility] Comment on above: Performed By: #### C MP, T7, LIPID, TSH #### [facility] [address] [place], [place] [address] Dr. uLdmila Farooq TSHon 01-04-2022 TSH 0.608 uIU/mL Normal 0.358-3.740 [facility] Comment on above: Performed By: #### C MP, T7, LIPID, TSH ####[facility] [id number] [id number] Ludmila Farooq TSH RANGE SEE BELOW Normal [facility] Comment on above: Result Comment: <0.3 4 UIU/ml HYPERTHYROID 0.34-5.60 UIU/ml EUTHYROID >5.60 UIU/ml HYPOTHYROID Performed By: #### C MP, T7, LIPID, TSH ####[facility] [id number] [id number]. Ludmila Farooq XR RIBS RT PA Gage [...] by: BHARATHI SHAHID Date: 2021-11-26 07:07 Normal [facility] Vital Signs Date Time Vital Sign Value Performing Clinician Faci lity 11-21-2022 14:20-0400 Body weight 69.85 kg Louie Germain MD Work Phone: [facility] Encounters Encounter Date Encounter Type Care Provider Facility Start: 11-21-2022 End: 11-21-2022 ambulatory AASHISH GUERRERO Facility:[facility] Start: 11-21-2022 End: 11-21-2022 Patient encounter procedure Louie Germain MD Work Phone: Orthopaedics Comment on above: Painful orthopaedic hardware (HCC) (Primary Dx); Right knee pain, unspecified chronicity Start: 11-18-2022 Telephone encounter Louie hughes MD Work Phone: [address] [place] [address] Comment on above: Release Of Medical R ecords Start: 03-25-[address] AASHISH GUERRERO Facility :[facility] Start: 01-08-2022 Encounter for genera l adult medical examination without abnormal findings DR AASHISH GUERR[facility] Start: 01-04-2022 End: 01-05-[address] AASHISH GUERRERO Facility:[facility] Start: 01-04-2022 End: 01-05-2022 Encounter for general adult medical examination without abnormal findings DR AASHISH GUERRERO Facility:[facility] Start: 11-25-2021 End: 11-26-[address] AASHISH GUERRERO Facility:[facility] Start: 09-11-2021 End: 09-12-[address] AASHISH GUERRERO Facility:[facility] Start: 12-21-2017 End: 12-22-2017 Ambulatory DEFAULT PHYSICIAN Facility:[facility] Plan of Treatment Date Care Activity Detail Author Start: 08-24-2022 DEPRESSION ASSESSMENT DEPRESSION ASS ESSMENT [facility] Start: 04-24-2022 Influenza vaccination INFLUENZA (#1) [facility] Start: 10-10-2021 COVID-19 VACCINE (4 - Booster for Moderna series) COVID-19 VACCINE (4 - Booster for Moderna series) [facility] Start: 09-12-2016 DIABETES SCREEN DIABETES SCREEN [facility] Start: 01-01-2012 SHINGRIX VACCINE (1 of 2) SHINGRIX V ACCINE (1 of 2) [facility] Start: 2006 COLOGUARD (FIT-DNA) COLOGUARD (FIT-D NA) [facility] Start: 2006 Colonoscopy COLONOSCOPY [facility] Start: 2006 COLORECTAL CANCER SCREENING COLORECTAL CANCER SCREENING [facility] Start: [address] COLONOGRAPHY [facility] Start: 2006 FECAL OCCULT BLOOD FECAL OCCULT BLOO D [facility] Start: 2006 LIPID SCREEN LIPID SCREEN [facility] Start: 2006 SIGMOIDOSCOPY SIGMOIDOSCOPY [facility] Start: 2001 Mammography MAMMOGRAM [facility] Start: 01-01-1992 HPV TESTING HPV TESTING [facility] Start: 1982 PAP TESTING PAP TESTING [facility] Start: 1980 Urine microalbumin profile DTAP,TDAP ,TD (1 - Tdap) [facility] Start: 01-01-1980 HEPATITIS C SCREENING HEPATITIS C SC CARRIENING [facility] Start: 01-01-1980 HIV SCREENING HIV SCREENING [facility] Start: 07-03-1962 COVID-19 VACCINE (#1) COVID-19 VACCI NE (#1) [facility] Payers Date Payer Category Payer Unknown 1960 Unknown [id number] [id number] [id number] 1960 Unknown [id number] 2.16.84 [id number] 1960 Unknown [id number] 2.16.84 [id number] 1960 Unknown [id number] 2.16.84 [id number] 1958 Self-pay 1958 Unknown [id number] Social History Date Type Detail Facility Start: 09-06-[address] [facility] Start: 09-06-2013 Tobacco use and exposure Smoke less tobacco non-user [facility] Start: 03-25-2015 Alcohol intake Current drinke r of alcohol (finding) [facility] Start: 1960 Sex Assigned At Not on file [facility] Medical Equipment Procedure Code Equipment Code Equipment Origin al Text Equipment Identifier Dates Restorelle L-Mes h - [id number] Start: 09-12-2013 Mesh Trnvg Jg 45x1.1cm Gyncr - [id number] Start: 09-12-2013 Progress note 11-21-2022 Note Date & Type Note Facility 11-21-2022 Note HNO ID: [id number] Author: Louie Germain MD Service: ? Author [...] a syncopal episode on 2015 while in [place]. This resulted in a pelvic fracture. She subsequently underwent surgical treatment with fixation using K wire and cerclage wire technique. She subsequently was placed in a knee immobilizer and following up in [place]. She reports being in the knee immobilizer [...] healed patellar fracture. 2 K wires with buoxnh-qr-htmzq cerclage wire. The K wires appear to be prominent both proximally and distally. The lateral wire appears to be migrated distally from prior x-rays IMPRESSION: Encounter Diagnosis ICD-10-CM 1. Painful orthopaedic hardware ([facility]) T84.84XA CONSULT TO(TCI)PRE-OP CLEAR SURGICAL REQUEST - [...] the hardware r (more content not included)... [facility] Progress note 11-21-2022 Note Date & Type Note Facility 11-21-2022 Note HNO ID: [id number] Author: Randi Sorensen, RT(R) Service: ? Author Type: Technologist Type: [...] RT New(R) November 21, 2022 2:12 PM [facility] History of Present illness Narrative 11-21-2022 [...] a syncopal episode on 2015 while in [place]. This resulted in a pelvic fracture. She subsequently underwent surgical treatment with fixation using K wire and cerclage wire technique. She subsequently was placed in a knee immobilizer and following up in [place]. She reports being in the knee immobilizer [...] HISTORY: PAST MEDICAL HISTORY Diagnosis Date Epilepsy ([facility]) Glaucoma Hypothyroid SOCIAL HISTORY: Tobacco Use: Never [...] healed patellar fracture. 2 K wires with mjpjln-qk-klaii cerclage wire. The K wires appear to be prominent both proximally and distally. The lateral wire appears to be migrated distally from prior x-rays IMPRESSION: Encounter Diagnosis ICD-10-CM 1. Painful orthopaedic hardware ([facility]) T84.84XA CONSULT TO(TCI)PRE-OP CLEAR SURGICAL REQUEST - [...] Louie Germain MD documented in this encounter [facility] Note 11-18-2022 Telephone Encounter - Rhiannon [...] still see her. Patient stated understanding. Tigist Morton is calling Louie Germain MD today to request Release Of Medical Records Patient calling stating she has appt 11/[address] Germain. States she is not able to get a hold of the doctor in [facility] to ask for records from when she was hospitalized in 07/17/[address] Germain office could try calling them to see if they could get the records? Patient wondering if she has to cancel appt if no records are received before appt? Please advise patient. [facility] Phone- [phone] Fax- [phone] Patient has been identified by name and birthdate. Duration of symptoms: N/A Person calling: self Call patient at: at home [phone] (home) [phone] (work) [phone] (cell) Was an appointment scheduled: No Closing statement: Results or non-symptom based questions: Thank you for calling [facility], your call will be returned within the next business day. Anne Sanches documented in this encounter [facility] Clinical Note 09-12-2021 Note Date & [...] by: EFRAIN GRANT Date: 2021-09-12 07:36 [facility] Evaluation note Note Date & Type Note Facility Evaluation note Diagnosis Painful orthopaedic hardware (HCC)- Primary Other complications due to other internal orthopedic device, implant, and graft Right knee pain, unspecified chronicity Painful orthopaedic hardware (HCC) Other complications due to other internal orthopedic device, implant, and graft documented in this encounter [facility] Summary Purpose Family History No Family History Records FoundNo Family History Records FoundNo Family History Records FoundNo Family History Records Found Advance Directives No Advanced Directives Records FoundNo Advanced Directives Records FoundNo Advanced Directives Records FoundNo Advanced Directives Records Found Additional Source Comments INFORMATION SOURCE (unrecogn ized section and content) DATE CREATED AUTHOR 02/11/2018 [facility] DATE CREATED AUTHOR AUTHOR'S ORGANIZ ATION 01/24/2022 [facility] DATE CREATED AUTHOR AUTHOR'S ORGANIZ ATION 03/22/2022 [facility] DATE CREATED AUTHOR AUTHOR'S GUERRERO DURONION 11/22/2022 [facility] Source Comments (unrecognize d section and content) In the event this informatio n is protected by the Federal Confidentiality of Alcohol and Drug Abuse Patient Records regulations: The Federal rules restrict any use of the information to criminally investigate or prosecute any alcohol or drug abuse patient[facility] the event this information is protected by the Federal Confidentiality of Alcohol and Drug Abuse Patient Records regulations: The Federal rules restrict any use of the information to criminally investigate or prosecute any alcohol or drug abuse patient.[facility] Reason for Visit (unrecogniz ed section and content) Reason Comments Release Of Medical Records Reason Comments New Care Teams (unrecognized sec tion and content) Organ Tuner Electronic Relationship Specialty Start Date End Date Aashish Guerrero MD PCP - General Family Medicine 08/05/13 Organ Tuner Electronic Relationship Specialty Start Date End Date Aashish [...] BE BASED ON THE PRIMARY CLINICAL RECORDS. [facility]. provides no warranty or guarantee of the accuracy or completeness of information in this document.
[2024-01-27 09:27] LABS: Free T4 1.23 ng/dL (0.76-1.46)
[2024-01-27 10:51] LABS: Chol HDL Ratio 2.4; Cholesterol 186 mg/dL (<=200); Free T3 2.15 pg/mL (2.18-3.98); HDL Cholesterol 79 mg/dL (40-60); Thyroid Stimulating Hormone 1.509 uIU/mL (0.358-3.740); Triglycerides 47 mg/dL (<=150); VLDL CHOLESTEROL 9.4 mg/dL
== END 2024-01-27 07:40 | disposition home or self-care (01) ==
LOC: LAB 07:42
PROVIDERS: PCP Family Medicine; Visit Provider Family Medicine
DX: E03.9 Hypothyroidism, unspecified (principal); E78.00 Pure hypercholesterolemia, unspecified
CPT/HCPCS: 36415; 80061; 84439; 84443; 84481

== ENCOUNTER 2024-02-10 14:56 | Outpatient (OUT) | payer OTHER, SELFPAY ==
--- NOTE | 2024-02-10 15:00 | US_ITS ---
The [address] [address] Patient Name: SUMAN BOURNE MRN: [id number] date: 1960 Sex: F Assigned Patient Location: [place] Current Patient Location: Accession/Order Number: [id number] Exam Date: 02/10/2024 15:02 Report Date: 02/12/2024 05:05 At the request of: AASHISH AGUILAR Procedure: US thyroid EXAMINATION: US thyroid HISTORY: Hypothyroidism, Lymphadenopathy COMPARISON: Ultrasound thyroid 09/14/2023 FINDINGS: RIGHT LOBE: Contains a 5 mm TR 4 nodule within mid body and a 4 mm TR 4 nodule within inferior pole. Lobe size: 3.4 x 0.9 x 0.9 cm LEFT LOBE: Prior lobectomy. Lobe size: ISTHMUS: Normal size and echotexture. Thickness: 2 mm US/US thyroid IMPRESSION: 1. Stable small nodules within right lobe; no overtly suspicious findings. No additional follow-up recommended at this time. TR4 (moderately suspicious): If > 1.0 cm, follow-up ultrasound in 1, 2, 3, and 5 years. If > 1.5 cm, fine needle aspiration (FNA). Electronically authenticated by: BHARATHI SHAHID Date: 02/12/2024 05:05
== END 2024-02-10 14:57 | disposition home or self-care (01) ==
LOC: US 14:56
PROVIDERS: PCP Family Medicine; Visit Provider Family Medicine
DX: E03.9 Hypothyroidism, unspecified (principal); R59.1 Generalized enlarged lymph nodes
CPT/HCPCS: 76536

== ENCOUNTER 2024-12-03 09:05 | Outpatient (OUT) | payer OTHER, SELFPAY ==
--- OUTSIDE RECORDS SUMMARY | 2024-12-03 09:08 | XMS_ITS | CCD ---
Author Organization [facility] CliniSyny Care Team Providers Care Engraver Letter Name Role Phone PHYSICIAN, DEFAULT Unavailable Unavailable PHYSICIAN, DEFAULT Unavailable Unavailable LAUREN, DR ZENDEJAS Admitting Unavailable HOY, DR ZENDEJAS Attending Unavailable HOY, DR ZENDEJAS Consulting Unavailable HOANGY, DR ZENDEJAS Primary Care Unavailable HOY, DR ZENDEJAS Admitting Unavailable HOY, DR ZENDEJAS Attending Unavailable HOY, DR ZENDEJAS Consulting Unavailable HOANGY, DR ZENDEJAS Primary Care Unavailable ZIVERNAER, DR BHARATHI Jeff Consulting Unavailable HOANGY, DR ZENDEJAS Admitting Unavailable HOY, DR ZENDEJAS Attending Unavailable HOY, DR ZENDEJAS Consulting Unavailable HOY, DR ZENDEJAS Primary Care Unavailable ENGLEWOOD CLIFFS, DR EFRAIN Rizzo Consulting Unavailable LAUREN, DR ZENDEJAS Admitting Unavailable HOY, DR ZENDEJAS Attending Unavailable LAUREN, DR ZENDEJAS Primary Care Unavailable Aashish Guerrero MD Primary Care Provider [phone] AASHISH GUERRERO Primary Care Unavailable LOUIE GERMAIN Referring Unavailable AASHISH GUERRERO Primary Care Unavailable LOUIE GERMAIN Attending Unavailable Aashish Guerrero MD Primary Care Provider [phone] Aashish Guerrero MD Primary Care Provider [phone] Yasmin Nguyen NP Unavailable Angel Thurman DO Unavailable LARISSA ALVAREZ Attending Unavailable YASMIN NGUYEN Attending Unavailable YASMIN NGUYEN Attending Unavailable Medications Current Medications Medication Drug Class(es) Dates Sig (Normalized) Sig (Original) acetaminophen 325 mg oral tablet (3 sources) acetaminophen (Tylenol) 325 MG tablet Orally Active alendronic acid 70 mg oral tablet (3 sources) Bisphosphonate Start: 11-16-2023 alendronate (Fosamax) 70 MG tablet TAKE 1 TABLET 30 MIN BEFORE THE FIRST FOOD/BEVERAGE/MEDICI NE OF THE DAY WITH PLAIN WATER ONCE WEEKLY 11/16/2023 Active busPIRone (3 sources) BUSPIRONE HCL (BUSPIRONE ORAL) Indications: H/O: knee surgery Take by mouth. Active BUSPIRONE HCL (B USPIRONE ORAL) Indications: H/O: knee surgery Take by mouth. 0 Active Comment on above: Take by mouth. cyclobenzaprine hydrochloride 10 mg oral tablet (6 sources) Muscle Relaxant take 1-2 tablets by mouth once daily at bedtime cyclobenzaprine (Flexeril) 10 MG tablet TAKE 1 TO 2 TABLETS BY MOUTH EVERY DAY AT BEDTIME Active Comment on above: Take 10-20 mg by nanette th daily at bedtime. docusate sodium 100 mg oral capsule (3 sources) Start: take 1 capsule by mouth every twelve hours as needed docusate sodium (COLACE) 100 mg capsule Take 1 capsule by mouth twice daily as needed for Constipation. 60 capsule 3 09/12/2013 Active Comment on above: Take 1 capsule by [facility] twice daily as needed for Constipation. ibuprofen 600 mg oral tablet (3 sources) Nonsteroidal Anti-inflammatory Drug Start: 014 take 1 tablet by mouth every eight hours as needed ibuprofen 600 mg tablet Take 1 tablet by mouth every 8 hours as needed for Pain. 60 tablet 3 09/12/2013 Active Comment on above: Take 1 tablet by nanette th every 8 hours as needed for Pain. latanoprost 0.05 mg/ml ophthalmic solution (3 sources) Prostaglandin Analog Start: 023 take 1 drop(s) into the eye(s) once daily at bedtime latanoprost (Xalatan) 0.005 % ophthalmic solution INSTILL 1 DROP IN BOTH EYES EVERY DAY AT BEDTIME 01/05/2023 Active 24 hr levETIRAcetam 500 mg extended release oral tablet (6 sources) Start: 024 take 5 tablets by mouth once daily levETIRAcetam XR (Keppra XR) 500 MG 24 hr tablet Indications: Seizure disorder (CMS/HCC) Take 5 tablets by mouth once daily. Do not crush, chew, or split. 150 tablet 6 02/09/2024 Active levETIRAcetam (K EPPRA) 500 mg tablet Take 3,000 mg by mouth daily at bedtime. Active Comment on above: Take 3,000 mg by nanette th daily at bedtime. levothyroxine sodium 0.1 mg oral tablet (6 sources) l-Thyroxine take 1 tablet by mouth in the morning levothyroxine (Synthroid, Levoxyl) 100 MCG tablet Take 100 mcg by mouth in the morning. Active Comment on above: Take 100 mcg by mout h daily before breakfast. liothyronine sodium 0.005 mg oral tablet (3 sources) l-Triiodothyronine Start: 4 liothyronine (Cytomel) 5 MCG tablet 1 (one) time each day at the same time 01/27/2024 Active magnesium gluconate 500 mg oral tablet (2 sources) take 1 tablet by mouth in the morning magnesium, as gluconate, (Magonate) 500 (27 Mg) MG tablet Take 27 mg by mouth in the morning and 27 mg before bedtime. Active predniSONE 10 mg oral tablet (3 sources) Start: 7 predniSONE (DELTASONE) 10 mg tablet Indications: Closed fracture of right patella, unspecified fracture morphology, initial encounter TAKE ONE TABLET TWICE DAILY TIMES 7 DAYS THAN ONE TABLET DAILY TIMES 7 DAYS. 21 tablet 01/22/2017 Active Comment on above: TAKE ONE TABLET TWIC E DAILY TIMES 7 DAYS THAN ONE TABLET DAILY TIMES 7 DAYS. simvastatin 20 mg oral tablet (3 sources) HMG-CoA Reductase Inhibitor Start: 3 take 1 tablet by mouth at bedtime simvastatin (Zocor) 20 MG tablet Take 20 mg by mouth at bedtime. 01/19/2023 Active 12 hr timolol 5 mg/ml ophthalmic solution (3 sources) beta-Adrenergic Thanh Start: 3 take 1 drop(s) into the eye(s) once daily in the morning timolol (Timoptic) 0.5 % ophthalmic solution INSTILL 1 DROP IN BOTH EYES EVERY MORNING 01/07/2023 Active Problems Active Problems Problem Classification Problem Date Documented Da te Episodic/Chronic Complication of device; implant or graft (2 sources) Pain; Translations: [Pain due to internal orthopedic prosthetic devices, implants and grafts, initial encounter] Episodic Conditions associated with dizziness or vertigo (20 sources) Vertigo of central origin; Translations: [Vertigo of central origin] Onset: 06-05-2023 Resolved: 06-09-2023 06-05-2023 Episodic Epilepsy; convulsions (5 sources) Seizure disorder; Translations: [Epilepsy, unspecified, not intractable, without status epilepticus] Onset: 02-05-2024 02-05-2024 Chronic Headache; including migraine (5 sources) Migraine; Translations: [Migraine, unspecified, not intractable, without status migrainosus] Onset: 02-05-2024 02-05-2024 Chronic Nutritional deficiencies (3 sources) Vitamin D deficiency; Translations: [Vitamin D deficiency, unspecified] Onset: 02-05-2024 02-05-2024 Chronic Other lower respiratory disease (4 sources) Pleurodynia; Translations: [PLEURODYNIA] Onset: 11-25-2021 Episodic Other non-traumatic joint disorders (2 sources) Pain in right knee; Translations: [Pain in joint, lower leg] Onset: 11-21-2022 Episodic Residual codes; unclassified (1 source) Pain, unspecified; Translations: [Pain] Onset: 11-21-2022 Episodic Past or Other Problems Problem Classification Problem Date Documented Date Episodic/Chronic Headache; including migraine (3 sources) Headache; Translations: [Headache] Onset: 02-05-2024 02-05-2024 Episodic Malaise and fatigue (3 sources) Malaise; Translations: [Other malaise] Onset: 02-05-2024 02-05-2024 Episodic Other aftercare (3 sources) Patient encounter status; Translations: [Encounter for therapeutic drug level monitoring] Onset: 02-05-2024 02-05-2024 Episodic Other nervous system disorders (3 sources) Impairment of balance; Translations: [Other abnormalities of gait and mobility] Onset: 06-05-2023 06-05-2023 Episodic Other nervous system disorders (3 sources) Paresthesia; Translations: [Paresthesia of skin] Onset: 02-05-2024 02-05-2024 Episodic Other non-traumatic joint disorders (4 sources) Pain in left knee; Translations: [PAIN IN LEFT KNEE] Onset: 09-11-2021 Episodic Other non-traumatic joint disorders (1 source) Effusion, left knee; Translations: [EFFUSION LEFT KNEE] Onset: 09-13-2021 Episodic Other skin disorders (3 sources) Loss of hair; Translations: [Nonscarring hair loss, unspecified] Onset: 02-05-2024 02-05-2024 Episodic Residual codes; unclassified (3 sources) Sleep deprivation; Translations: [Sleep deprivation] Onset: 02-05-2024 02-05-2024 Episodic Residual codes; unclassified (3 sources) Amnesia; Translations: [Other amnesia] Onset: 02-05-2024 02-05-2024 Episodic Residual codes; unclassified (3 sources) Insomnia; Translations: [Insomnia, unspecified] Onset: 02-05-2024 02-05-2024 Episodic Spondylosis; intervertebral disc disorders; other back problems (3 sources) Neck pain; Translations: [Cervicalgia] Onset: 06-05-2023 06-05-2023 Episodic Results Test Name Value Interpretation Reference Range Facility [facility] 11-21-2022 CNOV Office Visit (LOORRM) TIGIST MORTON ([id number]) 1960 F Date Time Provider Department 11/21/22 [...] a syncopal episode on 2015 while in [place]. This resulted in a pelvic fracture. She subsequently underwent surgical treatment with fixation using K wire and cerclage wire technique. She subsequently was placed in a knee immobilizer and following up in [place]. She reports being in the knee immobilizer [...] healed patellar fracture. 2 K wires with ajqcoi-oe-aehme cerclage wire. The K wires appear to [...] medical problems, (more content not included)... Normal [facility] Elena 11-21-2022 NADEEM Telephone (SHAYYORRM) TIGIST MORTON ([id number]) 1960 F Date Time Provider Department 11/21/22 LOUIE GERMAIN During your visit today, we recorded the following information about you: Gui Leal 11/21/2022 3:44 PM Signed Spoke to patient and scheduled PACC for upcoming surgery of right knee with Dr. Germain of 12/10/22. Allergies As of Date: 11/21/2022 (No Known Allergies) Date Reviewed: 01/22/2017 Reviewed by: Lalit Corea [facility] - Fully Assessed Reason for Visit: Surgical [...] Encounter Status:Closed by GUI LEAL on 11/21/22 [facility] XR KNEE 4V AP/PA BOTH+LAT/ME [...] 4V AP/PA BOTH+LAT/CUCA RT COMPARISON: 2016 RESULT: Xzegif-at-kkidq wire fixation of the patella. K wires [...] STUDY. PATELLA BAJA. 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 ONE OF THE K WIRES HAS PROBABLY PULLED OUT SLIGHTLY COMPARED TO THE PRIOR STUDY. PATELLA BAJA. 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 K wires extend beyond the superior and inferior pole of the patella. Hardware is intact. There is no fracture seen. Patella baja. 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 Osteopenia. No other significant abnormality. ----- DIVISION OF RADIOLOGY Provider, [facility] [place] - 11/21/2022 * * *Final Report* * * DATE [...] 4V AP/PA BOTH+LAT/CUCA RT COMPARISON: 2016 RESULT: Mwwmyi-al-eaumk wire fixation of the patella. K wires extend beyond the superior and inferior pole of the patella. Hardware is intact. There is no fracture seen. Patella baja. 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 Osteopenia. No other significant abnormality. ----- IMPRESSION IMPRESSION: HEALED PATELLAR FRACTURE STATUS POST FIXATION. ONE OF THE K WIRES HAS PROBABLY PULLED OUT SLIGHTLY COMPARED TO THE PRIOR STUDY. PATELLA BAJA. 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: PSCB Transcribe Date/Time: Nov 21 2022 4:09P Dictated by : JUAN CARLOS GRACIA MD This examination was interpreted and the report reviewed and electronically signed by: JUAN CARLOS GRACIA MD on Nov 21 2022 4:12PM EST [facility] Study observation (narrative) [facility] XR Knee - right 4 ViewsOrder ed By: Ccf Provider on 11-21-2022 [facility] CNPEliana 11-18-2022 CNPN Telephone (4CQ) TIGIST MORTON ([id number]) 1960 F Date Time Provider Department 11/18/22 [...] get a hold of the doctor in [facility] to ask for records from when she was hospitalized in 07/17/[address] Germain office could try calling them to see if they could get the records? Patient wondering if she has to cancel appt if no records are received before appt? Please advise patient. [facility] Phone- [phone] Fax- [phone] Patient has been identified by name and birthdate. Duration of symptoms: N/A Person calling: self Call patient at: at home [phone] (home) [phone] (work) [phone] (cell) Was an appointment scheduled: No Closing statement: Results or non-symptom based questions: Thank you for calling [facility], your call will be returned within the [...] Date Reviewed: 01/22/2017 Reviewed by: Lalit Gonzalez) [facility] - Fully Assessed Reason for [...] Status:Closed by RHIANNON PRUETT on 11/18/22 Normal [facility] Superficial Wound Cultureon 03-12-2022 Superficial Wound Culture Result Tab Codes 03/13/22 LMP BIOFUELS PLANT SUPERINTENDENT PM ORGANISM: Staphylococcus aureus (O:STAAUR) Quantity of [...] RESISTANT TO ALL B-LACTAM DRUGS. PERFORMED BY: [place] [address] PATHOLOGIST DIGITAL ADVERTISING SPECIALIST RAMIN BRIDGES M.D. [facility] Comment on above: Performed By: #### C USUP #### [address] INSULINon 01-06-2022 Insulin 8.1 uIU/mL Normal 2.6-24.9 [facility] Comment on above: Performed By: #### I NSULIN #### [facility] [address] [place] [address] Dr. Ludmila Farooq CBC AUTO DIFFon 01-04-2022 BASO # 0.0 103/ul Normal 0.0-0.1 [facility] Comment on above: Performed By: #### C BC #### [facility] [address] [place] [address] Dr. Ludmila Farooq Basophils/100 WBC (Bld) 0.3 % Normal 0.2-2.0 [facility] Comment on above: Performed By: #### C BC #### [facility] [address] [place] [address] Dr. Ludmila Farooq EO # 0.1 103/ul Normal 0.0-0.7 [facility] Comment on above: Performed By: #### C BC #### [facility] [address] [place] [address] Dr. Ludmila Farooq Eosinophils/100 WBC (Bld) 1.3 % Normal 0.9-7.0 [facility] Comment on above: Performed By: #### C BC #### [facility] [address] [place] [address] Dr. Ludmila Farooq Erythrocyte distribution width (RBC) [Ratio] 13.2 % Normal 11.0-15.0 [facility] Comment on above: Performed By: #### C BC #### [facility] [address] [place] [address] Dr. Ludmila Farooq Hematocrit (Bld) [Volume fraction] 41.7 % Normal 36.0-48.0 [facility] Comment on above: Performed By: #### C BC #### [facility] [address] [place] [address] Dr. Ludmila Farooq Hemoglobin (Bld) [Mass/Vol] 13.5 g/dL Normal 12.0-16.0 [facility] Comment on above: Performed By: #### C BC #### [facility] [address] [place] [address] Dr. Ludmila Farooq IG # 0.01 10e3/ul Normal 0.00-0.03 [facility] Comment on above: Performed By: #### C BC #### [facility] [address] [place] [address] Dr. Ludmila Farooq IG % 0.3 % Normal 0.0-0.5 [facility] Comment on above: Performed By: #### C BC #### [facility] [address] [place] [address] Dr. Ludmila Farooq LYMPH # 1.6 103/ul Normal 1.2-3.8 [facility] Comment on above: Performed By: #### C BC #### [facility] [address] [place] [address] Dr. Ludmila Farooq Lymphocytes/100 WBC (Bld) 40.7 % Normal 20.5-60.0 [facility] Comment on above: Performed By: #### C BC #### [facility] [address] [place] [address] Dr. Ludmila Farooq MANUAL DIFF REQ NO Normal [facility] Comment on above: Performed By: #### C BC #### [facility] [address] [place] [address] Dr. Ludmila Farooq MCH (RBC) [Entitic mass] 30.8 pg Normal 26.7-34.0 [facility] Comment on above: Performed By: #### C BC #### [facility] [address] [place] [address] Dr. Ludmila Farooq MCHC (RBC) [Mass/Vol] 32.4 g/dL Normal 29.9-35.2 [facility] Comment on above: Performed By: #### C BC #### [facility] [address] [place] [address] Dr. Ludmila Farooq MCV (RBC) [Entitic vol] 95.2 fL Normal 81.0-99.0 [facility] Comment on above: Performed By: #### C BC #### [facility] [address] [place] [address] Dr. Ludmila Farooq MONO # 0.3 103/ul Normal 0.3-0.8 [facility] Comment on above: Performed By: #### C BC #### [facility] [address] [place] [address] Dr. Ludmila Farooq Monocytes/100 WBC (Bld) 7.3 % Normal 1.7-12.0 [facility] Comment on above: Performed By: #### C BC #### [facility] [address] [place] [address] Dr. Ludmila Farooq NEUT # 2.0 103/ul Normal 1.4-6.5 [facility] Comment on above: Performed By: #### C BC #### [facility] [address] [place] [address] Dr. Ludmila Farooq Neutrophils/100 WBC (Bld) 50.1 % Normal 43.0-75.0 [facility] Comment on above: Performed By: #### C BC #### [facility] [address] [place] [address] Dr. Ludmila Farooq Platelet mean volume (Bld) [Entitic vol] 10.5 fL Normal 9.5-13.5 [facility] Comment on above: Performed By: #### C BC #### [facility] [address] [place] [address] Dr. Ludmila Fraooq PLT 236 103/ul Normal 150-450 [facility] Comment on above: Performed By: #### C BC #### [facility] [address] [place] [address] Dr. Ludmila Farooq RBC 4.38 106/ul Normal 4.20-5.40 [facility] Comment on above: Performed By: #### C BC #### [facility] [address] [place] [address] Dr. Ludmila Farooq WBC 4.0 103/ul Normal 4.0-11.0 [facility] Comment on above: Performed By: #### C BC #### [facility] [address] [place] [address] Dr. Ludmila Farooq FREE THYROXINE INDEX T7on FTI 3.22 Normal 1.30-4.50 [facility] Comment on above: Performed By: #### C MP, T7, LIPID, TSH #### [facility] [address] [place] [address] Dr. Ludmila Farooq T3U 37.0 % Normal 30.0-39.0 [facility] Comment on above: Performed By: #### C MP, T7, LIPID, TSH #### [facility] [address] [place] [address] Dr. Ludmila Farooq T4 [Mass/Vol] 8.70 ug/dL Normal 4.80-13.90 [facility] Comment on above: Performed By: #### C MP, T7, LIPID, TSH #### [facility] [address] [address] [address] Ludmila Farooq GLYCOHEMOGLOBIN A1Con 2021 ADA RECOMMENDATION SEE BELOW Normal [facility] Comment on above: Result Comment: ADA RECOMMENDED LIMIT 4.0 - 6.0 ADA THERAPEUTIC TARGET < 7.0 ACTION SUGGESTED > 7.0 Performed By: #### A 1C #### [facility] [address] [place] [address] Dr. Ludmila Farooq Glucose [Mass/Vol] 111 mg/dL Normal [facility] Comment on above: Performed By: #### A 1C #### [facility] [address] [place] [address] Dr. Ludmila Farooq HbA1c (Bld) [Mass fraction] 5.5 % Normal 4.5-6.2 [facility] Comment on above: Performed By: #### A 1C #### [facility] [address] [place] [address] Dr. Ludmila Farooq IRONon 01-04-2022 Iron [Mass/Vol] 110.0 ug/dL Normal 50.0-170.0 [facility] Comment on above: Performed By: #### I DEVENDRA #### [facility] [address] [place] [address] Dr. Ludmila Farooq LIPID PROFILEon 01-04-2022 CHOL-HDL RATIO NORM SEE BELOW Normal [facility] Comment on above: Result Comment: 3.3 - 4.4 LOW RISK 4.4 - 7.1 AVERAGE RISK 7.1 - 11.0 MODERATE RISK >11.0 HIGH RISK Performed By: #### C MP, T7, LIPID, TSH #### [facility] [address] [place] [address] Dr. Ludmila Farooq Cholesterol [Mass/Vol] 267 mg/dL Critically high <=200 [facility] Comment on above: Performed By: #### C MP, T7, LIPID, TSH #### [facility] [address] [place] [address] Dr. Ludmila Farooq Cholesterol in HDL [Mass/Vol] 84 mg/dL Critically high 40-60 [facility] Comment on above: Performed By: #### C MP, T7, LIPID, TSH #### [facility] [address] [address] [address] Ludmila Farooq Cholesterol in LDL [Mass/Vol] 172.0 mg/dL Normal [facility] Comment on above: Performed By: #### C MP, T7, LIPID, TSH #### [facility] [address] [address] [address] Ludmila Farooq Cholesterol.total/Cho lesterol in HDL [Mass ratio] 3.2 {ratio} Normal [facility] Comment on above: Performed By: #### C MP, T7, LIPID, TSH #### [facility] [address] [address] [address] Ludmila Farooq HDL NORMAL > or = 60 mg/dl - LOW CARDIOVASCULAR RISK <40 mg/dl - HIGH CARDIOVASCULAR RISK Normal [facility] Comment on above: Performed By: #### C MP, T7, LIPID, TSH #### [facility] [address] [address] [address] Ludmila Farooq LDL CALC NORMAL SEE BELOW Normal [facility] Comment on above: Result Comment: <100 mg/dl OPTIMAL 100 - 129 mg/dl NEAR OR ABOVE OPTIMAL 130 - 159 mg/dl BORDERLINE HIGH 160 - 189 mg/dl HIGH >190 mg/dl VERY HIGH Performed By: #### C MP, T7, LIPID, TSH #### [facility] [address] [address] [address] Ludmila Farooq Triglyceride [Mass/Vol] 55 mg/dL Normal <=150 [facility] Comment on above: Performed By: #### C MP, T7, LIPID, TSH #### [facility] [address] [address] [address] Ludmila Farooq VLDL CALC 11.0 mg/dL Normal [facility] Comment on above: Performed By: #### C MP, T7, LIPID, TSH #### [facility] [address] [address] [address] Ludmila Farooq OCC BLD IMMUNO SCREENon 05- 4-2022 OCCULT BLOOD Negative Normal NEGATIVE [facility] Comment on above: Performed By: #### O BSCRN #### [facility] [address] [address] [address] Ludmila Farooq PROF 14(COMP METB)on 022 Albumin [Mass/Vol] 3.4 g/dL Normal 3.4-5.0 [facility] Comment on above: Performed By: #### C MP, T7, LIPID, TSH #### [facility] [address] [place] [address] Dr. Ludmila Farooq Albumin/Globulin [Mass ratio] 1.0 {ratio} Normal [facility] Comment on above: Performed By: #### C MP, T7, LIPID, TSH #### [facility] [address] [place] [address] Dr. Ludmila Farooq ALP [Catalytic activity/Vol] 93 U/L Normal 46-116 [facility] Comment on above: Performed By: #### C MP, T7, LIPID, TSH #### [facility] [address] [address] [address] Ludmila Farooq ALT [Catalytic activity/Vol] 22 U/L Normal 14-59 [facility] Comment on above: Performed By: #### C MP, T7, LIPID, TSH #### [facility] [address] [address] [address] Ludmila Farooq Anion gap [Moles/Vol] 9.1 mmol/L Normal [facility] Comment on above: Performed By: #### C MP, T7, LIPID, TSH #### [facility] [address] [address] [address] Ludmila Farooq AST [Catalytic activity/Vol] 17 U/L Normal 15-37 [facility] Comment on above: Performed By: #### C MP, T7, LIPID, TSH #### [facility] [address] [place] [address] Dr. Ludmila Farooq Bilirubin [Mass/Vol] 0.7 mg/dL Normal 0.2-1.0 [facility] Comment on above: Performed By: #### C MP, T7, LIPID, TSH #### [facility] [address] [address] [address] Ludmila Farooq Calcium [Mass/Vol] 8.7 mg/dL Normal 8.5-10.1 [facility] Comment on above: Performed By: #### C MP, T7, LIPID, TSH #### [facility] [facility] [address] [place] [address] Dr. Ludmila Farooq Chloride [Moles/Vol] 103 mmol/L Normal 98-107 [facility] Comment on above: Performed By: #### C MP, T7, LIPID, TSH #### [facility] [address] [place] [address] Dr. Ludmila Farooq CO2 [Moles/Vol] 31.7 mmol/L Normal 21.0-32.0 [facility] Comment on above: Performed By: #### C MP, T7, LIPID, TSH #### [facility] [address] [place] [address] Dr. Ludmila Farooq Creatinine [Mass/Vol] 0.82 mg/dL Normal 0.55-1.02 [facility] Comment on above: Performed By: #### C MP, T7, LIPID, TSH #### [facility] [address] [place] [address] Dr. Ludmila Farooq EGFR-AF MALTESE >60 Normal >=60 [facility] Comment on above: Performed By: #### C MP, T7, LIPID, TSH #### [facility] [address] [place] [address] Dr. Ludmila Farooq EGFR-NON AF MALTESE >60 Normal >=60 [facility] Comment on above: Performed By: #### C MP, T7, LIPID, TSH #### [facility] [address] [place] [address] Dr. Ludmila Farooq Globulin (S) [Mass/Vol] 3.4 g/dL Normal [facility] Comment on above: Performed By: #### C MP, T7, LIPID, TSH #### [facility] [address] [place] [address] Dr. Ludmila Farooq Glucose [Mass/Vol] 91 mg/dL Normal 74-106 [facility] Comment on above: Performed By: #### C MP, T7, LIPID, TSH #### [facility] [address] [address] [address] Ludmila Farooq Potassium [Moles/Vol] 3.8 mmol/L Normal 3.5-5.1 [facility] Comment on above: Performed By: #### C MP, T7, LIPID, TSH #### [facility] [address] [address] [address] Ludmila Farooq Protein [Mass/Vol] 6.8 g/dL Normal 6.4-8.2 [facility] Comment on above: Performed By: #### C MP, T7, LIPID, TSH #### [facility] [address] [address] [address] Ludmila Farooq Sodium [Moles/Vol] 140 mmol/L Normal 136-145 [facility] Comment on above: Performed By: #### C MP, T7, LIPID, TSH #### [facility] [address] [address] [address] Ludmila Farooq Urea nitrogen [Mass/Vol] 16.0 mg/dL Normal 7.0-18.0 [facility] Comment on above: Performed By: #### C MP, T7, LIPID, TSH #### [facility] [address] [place] [address] Dr. Ludmila Farooq Urea nitrogen/Creatinine [Mass ratio] 19.5 mg/mg Normal [facility] Comment on above: Performed By: #### C MP, T7, LIPID, TSH #### [facility] [address] [address] [address] Ludmila Farooq TSHon 01-04-2022 TSH 0.608 uIU/mL Normal 0.358-3.740 [facility] Comment on above: Performed By: #### C MP, T7, LIPID, TSH ####[facility] [address] [address]Dr. Ludmila Farooq TSH RANGE SEE BELOW Normal [facility] Comment on above: Result Comment: <0.3 4 UIU/ml HYPERTHYROID 0.34-5.60 UIU/ml EUTHYROID >5.60 UIU/ml HYPOTHYROID Performed By: #### C MP, T7, LIPID, TSH ####[facility] [address] [place], [place] [address]Vr. Ludmila Farooq XR RIBS RT PA Gage [...] by: BHARATHI SHAHID Date: 2021-11-26 07:07 Normal [facility] Vital Signs Date Time Vital Sign Value Performing Clinician Morgani linh 07-25-2024 16:07-0500 Body mass index (BMI) [Ratio] 25.34 kg/m2 Yasmin Nguyen RESEARCH CLERK Work Phone: [facility] 07-25-2024 16:07-0500 Body weight 71.22 kg Yasmin Nguyen RESEARCH CLERK Work Phone: [facility] 07-25-2024 16:07-0500 Diastolic blood pressure 67 mm[Hg] Yasmin Nguyen RESEARCH CLERK Work Phone: [facility] 07-25-2024 16:07-0500 Heart rate 69 /min Yasmin Nguyen RESEARCH CLERK Work Phone: [facility] 07-25-2024 16:07-0500 Systolic blood pressure 98 mm[Hg] Yasmin Nguyen RESEARCH CLERK Work Phone: [facility] 11-21-2022 14:20-0400 Body weight 69.85 kg Louie Germain MD Work Phone: [place] Encounters Encounter Date Encounter Type Care Provider Facility Start: 07-25-2024 End: 07-25-2024 ambulatory YASMIN NGUYEN Not Available Start: 07-25-2024 End: 07-25-2024 Office outpatient visit 15 minutes Yasmin Nguyen RESEARCH CLERK Work Phone: [facility] Comment on above: Seizure disorder (CM S/HCC) (Primary Dx); Migraine without status migrainosus, not intractable, unspecified migraine type (CMS/HCC); Dizziness Start: 07-25-2024 End: 07-25-2024 Bamboo flowsheet Yasmin Nguyen RESEARCH CLERK Work Phone: [facility] Start: 07-25-2024 End: 07-25-2024 Bamboo flowsheet Yasmin Nguyen RESEARCH CLERK Work Phone: [facility] Start: 02-08-2024 End: 02-08-2024 ambulatory YASMIN NGUYEN Not Available Start: 02-04-2024 End: 02-04-2024 ambulatory LARISSA ALANISMIRANDA Not Available Start: 11-21-2022 End: 11-21-2022 ambulatory AASHISH GUERRERO Facility:[facility] Start: 11-21-2022 End: 11-21-2022 Patient encounter procedure Louie Germain MD Work Phone: Orthopaedics Comment on above: Painful orthopaedic hardware (HCC) (Primary Dx); Right knee pain, unspecified chronicity Start: 11-21-2022 End: 11-21-2022 Subsequent hospital visit by physician Lindsey Abel 1 Work Phone: Radiology Comment on above: Pain [R52] Start: 11-18-2022 Telephone encounter Louie hughes MD Work Phone: [place] Comment on above: Release Of Medical R [...] Start: 12-21-2017 End: 12-22-2017 Ambulatory DEFAULT PHYSICIAN Facility:[facility] Procedures Date Procedure Procedure Detail Performing Clinician Start: 11-21-2022 Radiologic exam knee complete 4/more views Louie Germain MD Work Phone: Plan of Treatment Date Care Activity Detail Author Start: 2036 RSV Vaccine (1 - 1-d ose 75+ series) RSV Vaccine (1 - 1-dose 75+ series) [place] Start: 02-06-2025 End: 02-06-2025 Patient encounter procedure [facility] Start: 04-24-2024 Covid-19 Vaccine () Covid-19 Vaccine ( season) [place] Start: 04-24-2024 Influenza vaccination Influenza Vacc ine (#1) [place] Start: 08-24-2022 DEPRESSION ASSESSMENT DEPRESSION ASS ESSMENT [place] Start: 04-24-2022 Influenza vaccination INFLUENZA (#1) [place] Start: 10-10-2021 COVID-19 VACCINE (4 - Booster for Moderna series) COVID-19 VACCINE (4 - Booster for Moderna series) [place] Start: 09-12-2016 DIABETES SCREEN DIABETES SCREEN [facility] Start: 09-12-2016 Diabetes Screening Diabetes Screenin g [place] Start: 01-01-2012 SHINGRIX VACCINE (1 of 2) SHINGRIX V ACCINE (1 of 2) [place] Start: 2006 COLOGUARD (FIT-DNA) COLOGUARD (FIT-D NA) [place] Start: 2006 Colonoscopy COLONOSCOPY [place] Start: 2006 COLORECTAL CANCER SCREENING COLORECTAL CANCER SCREENING [place] Start: [address] COLONOGRAPHY [facility] Start: 2006 FECAL OCCULT BLOOD FECAL OCCULT BLOO D [place] Start: 2006 Lipid panel Lipid Screening [facility] Start: 2006 LIPID SCREEN LIPID SCREEN [place] Start: 2006 Screening for malign ant neoplasm of colon [place] Start: 2006 SIGMOIDOSCOPY SIGMOIDOSCOPY [facility] Start: 2001 Mammography MAMMOGRAM [place] Start: 2001 Screening for malign ant neoplasm of breast [place] Start: 01-01-1992 HPV TESTING HPV TESTING [place] Start: 01-01-1992 Screening for malign ant neoplasm of cervix [facility] Start: 1982 PAP TESTING PAP TESTING [place] Start: 1982 Screening for malign ant neoplasm of cervix [place] Start: 1980 Urine microalbumin profile [place] Start: 01-01-1980 Anxiety Screening Anxiety Screening [place] Start: 01-01-1980 Depression Screening Depression Scre ening [place] Start: 01-01-1980 HEPATITIS C SCREENING HEPATITIS C [facility] Start: 01-01-1980 Hepatitis C screening Hepatitis C [facility] Start: 01-01-1980 HIV SCREENING HIV SCREENING [facility] Start: 01-01-1980 HIV screening HIV Screening [facility] Start: 07-03-1962 COVID-19 VACCINE (#1) COVID-19 VACCI NE (#1) [place] Start: 1961 Screening for malign ant neoplasm of colon [facility] Payers Date Payer Category Payer Private Health Insurance [employer] [id number] 2016 Unknown 1961 Unknown [id number] 1961 Unknown [id number] 1961 Unknown [id number] 1961 Unknown [id number] 1961 Unknown [id number] 1961 Unknown [id number] 1961 Unknown [id number] 1959 Self-pay 1959 Unknown [id number] Social History Date Type Detail Facility Start: 09-06-2013 End: 02-03-2023 Tobacco smoking status NHIS Never smoked tobacco [place] Start: 09-06-2013 End: 02-03-2023 Tobacco use and exposure Smokeless tobacco non-user [place] Start: 03-25-2015 Alcohol intake Current drinke r of alcohol (finding) [place] Start: 1960 Sex Assigned At Not on file C [facility] Start: 11-21-2022 End: 07-25-2024 History of Social function [facility] Start: 11-21-2022 End: 07-25-2024 Area Deprivation Index [place] National Score (1-10 0), lower number is lower risk 70 [place] Start: 02-08-2024 End: 07-25-2024 Alcoholic beverage intake Lifetime non-drinker (finding) [facility] Medical Equipment Procedure Code Equipment Code Equipment Origin al Text Equipment Identifier Dates Restorelle L-Mes h - [id number] Start: 09-12-2013 Mesh Trnvg Jg 45x1.1cm Gyncr - [id number] Start: 09-12-2013 Progress note 11-21-2022 Note Date & Type Note Facility 11-21-2022 Note HNO ID: [id number] Author: Louie Germain MD Service: ? Author [...] a syncopal episode on 2015 while in [place]. This resulted in a pelvic fracture. She subsequently underwent surgical treatment with fixation using K wire and cerclage wire technique. She subsequently was placed in a knee immobilizer and following up in [place]. She reports being in the knee immobilizer [...] healed patellar fracture. 2 K wires with mozkez-jl-ztliw cerclage wire. The K wires appear to [...] the hardware r (more content not included)... [facility] Progress note 11-21-2022 Note Date & Type Note Facility 11-21-2022 Note HNO ID: [id number] Author: Randi Sorensen, RT(R) Service: ? Author [...] RT New(R) November 21, 2022 2:12 PM [facility] History of Present illness Narrative 11-21-2022 [...] a syncopal episode on 2015 while in [place]. This resulted in a pelvic fracture. She subsequently underwent surgical treatment with fixation using K wire and cerclage wire technique. She subsequently was placed in a knee immobilizer and following up in [place]. She reports being in the knee immobilizer [...] HISTORY: PAST MEDICAL HISTORY Diagnosis Date Epilepsy ([facility]) Glaucoma Hypothyroid SOCIAL HISTORY: Tobacco Use: [...] healed patellar fracture. 2 K wires with xnuoqn-ss-gwmaw cerclage wire. The K wires appear to be prominent both proximally and distally. The lateral wire appears to be migrated distally from prior x-rays IMPRESSION: Encounter Diagnosis ICD-10-CM 1. Painful orthopaedic hardware ([facility]) T84.84XA CONSULT TO(TCI)PRE-OP CLEAR SURGICAL REQUEST [...] Louie Germain MD documented in this encounter [place] Note 11-18-2022 Telephone Encounter - Rhiannon Pruett [...] get a hold of the doctor in [facility] to ask for records from when she was hospitalized in 07/17/[address] Germain office could try calling them to see if they could get the records? Patient wondering if she has to cancel appt if no records are received before appt? Please advise patient. [facility] Phone- [phone] Fax- [phone] Patient has been identified by name and birthdate. Duration of symptoms: N/A Person calling: self Call patient at: at home [phone] (home) [phone] (work) [phone] (cell) Was an appointment scheduled: No Closing statement: Results or non-symptom based questions: Thank you for calling [place], your call will be returned within the next business day. Anne Sanches documented in this encounter [place] Clinical Note 09-12-2021 Note Date & Type [...] authenticated by: EFRAIN GRANT Date: 2021-09-12 07:36 [facility] Evaluation note Note Date & Type Note Facility Evaluation note Diagnosis Painful orthopaedic hardware (HCC)- Primary Other complications due to other internal orthopedic device, implant, and graft Right knee pain, unspecified chronicity Painful orthopaedic hardware (HCC) Other complications due to other internal orthopedic device, implant, and graft documented in this encounter [facility] Evaluation note Note Date & Type Note Facility Evaluation note Diagnosis Pain Generalized pain documented in this encounter [facility] Evaluation note Note Date & Type Note Facility Evaluation note Diagnosis Seizure disorder (CMS/HCC)- Primary Unspecified epilepsy without mention of intractable epilepsy Migraine without status migrainosus, not intractable, unspecified migraine type (CMS/HCC) Dizziness Dizziness and giddiness documented in this encounter [facility] Reason for referral (narrative) Diagnostic Procedure Only (Routine) - Closed Note Date & Type Note Facility Reason for referral (narrati ve) Specialty Diagnoses / Procedures Referred By Contac t Referred To Contact XR IMAGING Diagnoses Pain Procedures XR KNEE GENERAL 4V AP BOTH/PA BOTH/LAT/MERC RIGHT RADIOLOGIC EXAM KNEE COMPLETE 4/MORE VIEWS Louie Germain MD [address] [place] [address] [place] [address] Referral ID Status Reason Start Date Expiration Date V isits Requested Visits Authorized [id number] Closed Auto-Generate d Referral 11/11/2022 12/11/2023 1 1 [place] Reason for visit Narrative Diagnostic Procedure Only (Routine) - Closed Note Date & Type Note Facility Reason for visit Narrative Specialty Diagnoses / Procedures Referred By Contac t Referred To Contact XR IMAGING Diagnoses Pain Procedures XR KNEE GENERAL 4V AP BOTH/PA BOTH/LAT/MERC RIGHT RADIOLOGIC EXAM KNEE COMPLETE 4/MORE VIEWS Louie Germain MD [address] [place] [address] [place] [address] Referral ID Status Reason Start Date Expiration Date V isits Requested Visits Authorized [id number] Closed Auto-Generate d Referral 11/11/2022 12/11/2023 1 1 [place] Summary Purpose Family History No Family History Records FoundNo Family History Records FoundNo Family History Records FoundNo Family History Records FoundNo Family History Records Found Advance Directives No Advanced Directives Records FoundNo Advanced Directives Records FoundNo Advanced Directives Records FoundNo Advanced Directives Records FoundNo Advanced Directives Records Found Additional Source Comments INFORMATION SOURCE (unrecogn ized section and content) DATE CREATED AUTHOR 02/11/2018 [facility] DATE CREATED AUTHOR AUTHOR'S ORGANIZ ATION 01/24/2022 [facility] DATE CREATED AUTHOR AUTHOR'S ORGANIZ ATION 03/22/2022 [facility] DATE CREATED AUTHOR AUTHOR'S ORGANIZ ATION 11/22/2022 [facility] DATE CREATED AUTHOR AUTHOR'S ORGANIZ ATION 07/27/2024 [facility] EPIC Source Comments (unrecognize d section and content) In the event this informatio n is protected by the Federal Confidentiality of Alcohol and Drug Abuse Patient Records regulations: The Federal rules restrict any use of the information to criminally investigate or prosecute any alcohol or drug abuse patient.[place] the event this information is protected by the Federal Confidentiality of Alcohol and Drug Abuse Patient Records regulations: The Federal rules restrict any use of the information to criminally investigate or prosecute any alcohol or drug abuse patient.[place] the event this information is protected by the Federal Confidentiality of Alcohol and Drug Abuse Patient Records regulations: The Federal rules restrict any use of the information to criminally investigate or prosecute any alcohol or drug abuse patient.[place] Reason for Visit (unrecogniz ed section and content) Reason Comments Release Of Medical Records Reason Comments New Reason Comments Seizures Migraine Dizziness Care Teams (unrecognized sec tion and content) Engraver Letter Relationship Specialty Start Date End Date Aashish Guerrero MD PCP - General Family Medicine 08/05/13 Engraver Letter Relationship Specialty Start Date End Date Aashish Guerrero MD PCP - General Family Medicine 08/05/13 Engraver Letter Relationship Specialty Start Date End Date Aashish Guerrero MD PCP - General Family Medicine 08/05/13 Engraver Letter Relationship Specialty Start Date End Date Aashish Guerrero MD [address] [place] [address] PCP - General Family Medicine 02/08/24 Yasmin Nguyen NP [address] [place] [address] Nurse Practitioner Neurology 07/22/24 Angel Thurman DO [address] [address] Referring Physician Neurology 07/22/24 Engraver Letter Relationship Specialty Start Date End Date Aashish Guerrero MD [address] [facility] [place] [address] PCP - General Family Medicine 02/08/24 Yasmin Nguyen NP [address] [address] Nurse Practitioner Neurology 07/22/24 Angel Thurman DO [address] [address] Referring Physician Neurology 07/22/24 FOR RECORDS PERTAINING TO PATIENTS WHO ARE [...] BE BASED ON THE PRIMARY CLINICAL RECORDS. [facility]. provides no warranty or guarantee of the accuracy or completeness of information in this document.
[2024-12-03 10:15] LABS: Free T3 2.19 pg/mL (2.18-3.98); Thyroid Stimulating Hormone 0.335 uIU/mL (0.358-3.740)
== END 2024-12-03 09:06 | disposition home or self-care (01) ==
LOC: LAB 09:05
PROVIDERS: PCP Family Medicine; Visit Provider Family Medicine
DX: E03.9 Hypothyroidism, unspecified (principal)
CPT/HCPCS: 36415; 84436; 84443; 84481

== ENCOUNTER 2025-04-18 14:59 | Outpatient (OUT) | payer OTHER, SELFPAY ==
--- OUTSIDE RECORDS SUMMARY | 2025-04-18 15:01 | XMS_ITS | Clinical Summary ---
Author Organization [facility] Address [address] [place], [place] [id number] Care Team Providers Care Sew Out Operator Name Role Phone Uday Guerrero MD Primary Care Provider [phone] Allergies No known active allergies Medications levothyroxine (LEVOTHROID) 100 mcg tablet Take 100 mcg by mouth daily before breakfast. Active levETIRAcetam (KEPPRA) 500 mg tablet Take 3,000 mg by mouth daily at bedtime. Active cyclobenzaprine (FLEXERIL) 10 mg tablet Take 10-20 mg by mouth daily at bedtime. Active ibuprofen 600 mg tablet Take 1 tablet by mouth every 8 hours as needed for Pain. 60 tablet 3 09/12/2013 Active docusate sodium (COLACE) 100 mg capsule Take 1 capsule by mouth twice daily as needed for Constipation . 60 capsule 3 09/12/2013 Active BUSPIRONE HCL (BUSPIRONE ORAL)Indications :H/O: knee surgery Take by mouth. Active predniSONE (DELTASONE) 10 mg tabletIndication s:Closed fracture of right patella, unspecified fracture morphology, initial encounter TAKE ONE TABLET TWICE DAILY TIMES 7 DAYS THAN ONE TABLET DAILY TIMES 7 DAYS. 21 tablet 01/22/2017 Active Active Problems No known active problems Family History Medical History Relation Comments Heart Father Thyroid Mother Relation Status Comments Father Mother Social History Tobacco Use Types Packs/Day Years Used Date Smoking Tobacco: Never Smokeless Tobacco: Never Alcohol Use Standard Drinks/Week Comments Yes 0 (1 standard drink = 0.6 oz pur e alcohol) occ Area Deprivation Index Answer Date Walt rded National Score (1-100), lower number is lower ri sk 70 11/21/2022 State Score (1-10), lower number is lower risk N ot on file 11/21/2022 Data from: https://www.neighborhoodatlas.medicine[facility]/. Last address used for calculation [address] 11/21/2022 Comments No Sex and Gender Information Value Date Recorded Sex Assigned at Not on file Legal Sex Female 2:48 PM EST Gender Identity Not on file Sexual Orientation Not on file Last Filed Vital Signs Vital Sign Reading Time Taken Comments Blood Pressure 102/64 02/28/2014 11:47 AM EDT Pulse 96 09/13/2013 2:32 PM EST Temperature 36.6 C (97.9 F) 09/13/2013 2:32 PM EST Respiratory Rate 16 09/13/2013 2:32 PM EST Oxygen Saturation 97% 09/13/2013 2:32 PM EST Inhaled Oxygen Concentration - - Weight 69.9 kg (154 lb) 11/21/2022 2:20 PM EDT Height 167.6 cm (5' 6 ) 02/28/2014 11:47 AM EDT Body Mass Index 24.86 02/28/2014 11:47 AM EDT Plan of Treatment Health Maintenance Due Date Last Done Comments Anxiety Screening 01/01/1980 Depression Screening 01/01/1980 HIV Screening 01/01/1980 Hepatitis C Screening 01/01/1980 DTaP,Tdap,Td Vaccine (1 - Tdap) 1980 Cervical Cancer Screening [address] Colonography 2006 Cologuard (FIT-DNA) 2006 Colonoscopy 2006 Colorectal Cancer Screening 2006 Fecal Occult Blood 2006 Lipid Screening 2006 Sigmoidoscopy 2006 Pneumococcal Vaccine: 50+ (1 of 1 - PCV) 01/01/2012 Shingrix Vaccine (1 of 2) 01/01/2012 Diabetes Screening 09/12/2016 09/12/2013, 09/06/2013 Influenza Vaccine (#1) 2025 RSV Vaccine (1 - 1-dose 75+ series) 2036 Medical Devices Implanted Type Area Poker Machine Attendant Device Identifier Shelf Expiration Date Model / Serial / Lot Jennifer Rincon-Mesh - [id number] Implanted:Qty: 1 on 09/12/2013 at [facility] Mesh [employer] 06/23/2016 [id number] / / [id number] Mesh Trnvg Jg 45x1.1cm Gyncr - [id number] Implanted:Qty: 1 on 09/12/2013 at [facility] TVT Device [employer] 02/21/2016 [id number] / / [id number] Procedures Procedure Name Priority Date/Time Associated Diagnosis Comments BASIC METABOLIC PANEL STAT 09/12/2013 10:28 PM EST from Last 3 Months or Most Recently Relevant to Health Maintenance Results * (ABNORMAL) BASIC METABOLIC PNL (09/12/2013 10:28 PM EST) Glucose 100 65 - 100 mg/dL [facility] BUN 7(L) 8 - 25 mg/dL [facility] Creatinine 0.68(L) 0.70 - 1.40 mg/dL [facility] Sodium 137 132 - 148 mmol/L [facility] Potassium 3.6 3.5 - 5.0 mmol/L [facility] Chloride 103 98 - 110 mmol/L [facility] CO2 24 23 - 32 mmol/L [facility] Anion Gap 10 0 - 15 mmol/L [facility] Calcium 8.1(L) 8.5 - 10.5 mg/dL [facility] Blood specimen (specimen) BLOOD SPECIMEN / Unknown 09/12/2013 10:28 PM EST 09/12/2013 10:29 PM EST us Hazel Cobian MD LABORATORY Final Result [facility] [address] [place] [address] from Last 3 Months or Most Recently Relevant to Health Maintenance Insurance [employer] Care Teams Sew Out Operator Relationship Specialty Start Date End Date Uday Guerrero MD PCP - General Family Medicine 08/05/13
--- OUTSIDE RECORDS SUMMARY | 2025-04-18 15:01 | XMS_ITS | Encounter Summary ---
Author Organization [facility] Address [address] [place] [address] Care Team Providers Care Netsuite Consultant Name Role Phone Uday Guerrero MD Primary Care Provider + Miryam Chavarria MACHINE DYER Unavailable [phone] Angel Thurman DO Unavailable [phone] Encounter Details Date Type Department Care Team (Late Contact Info) Description 02/03/2023 Abstract [facility] [address] [facility] [address] [place] [address] Leann Gil MD [address] [facility] [address] [place] [address] Social History Tobacco Use Types Packs/Day Years Used Date Smoking Tobacco: Never Smokeless Tobacco: Never Tobacco Cessation:Counseling Given: Not Answered Alcohol Use Standard Drinks/Week Comments Never 0 (1 standard drink = 0.6 oz pur e alcohol) Comments Unknown Sex and Gender Information Value Date Recorded Sex Assigned at Not on file Legal Sex Female 6:45 PM EDT Gender Identity Not on file Sexual Orientation Not on file documented as of this encounter Plan of Treatment Upcoming Encounters Date Type Department Care Team (Late Contact Info) Description 02/06/2026 4:00 PM EDT Office Visit [facility] [address] [facility] [address] [place] [address] Leann Gil MD [address] [facility] [address] [place] [address] documented as of this encounter Visit Diagnoses Not on filedocumented in this encounter Care Teams Netsuite Consultant Relationship Specialty Start Date End Date Uday Guerreor MD PCP - General Family Medicine 02/08/24 Miryam Chavarria NP Nurse Practitioner Neurology 07/22/24 Angel Thurman DO [address] [facility] [address] [place] [address] Referring Physician Neurology 07/22/24 documented as of this encounter
--- OUTSIDE RECORDS SUMMARY | 2025-04-18 15:01 | XMS_ITS | Encounter Summary ---
Author Organization [facility] Address [address] [place] [address] Care Team Providers Care Biology Instructor Name Role Phone Uday Guerrero MD Primary Care Provider + Miryam Chavarria CASH RECONCILIATION SPECIALIST Unavailable [phone] Angel Thurman DO Unavailable [phone] Encounter Details Date Type Department Care Team (Late st Contact Info) Description 02/09/2024 Orders Only JOSE ARMANDO MCBRIDE [address] [place] [phone] Gaviota Ren MA Social History Tobacco Use Types Packs/Day Years Used Date Smoking Tobacco: Never Smokeless Tobacco: Never Alcohol Use Standard Drinks/Week Comments Never 0 (1 standard drink = 0.6 oz pur e alcohol) Comments Unknown Sex and Gender Information Value Date Recorded Sex Assigned at Not on file Legal Sex Female 6:45 PM EDT Gender Identity Not on file Sexual Orientation Not on file documented as of this encounter Plan of Treatment Upcoming Encounters Date Type Department Care Team (Late st Contact Info) Description 02/06/2026 4:00 PM EDT Office Visit [facility] [address] [place] [address] Leann Gil MD [address] [place] [address] documented as of this encounter Visit Diagnoses Not on filedocumented in this encounter Care Teams Biology Instructor Relationship Specialty Start Date End Date Uday Guerrero MD PCP - General Family Medicine 02/08/24 Miryam Chavarria NP Nurse Practitioner Neurology 07/22/24 Angel Thurman DO [address] [place] [address] Referring Physician Neurology 07/22/24 documented as of this encounter
--- OUTSIDE RECORDS SUMMARY | 2025-04-18 15:01 | XMS_ITS | Encounter Summary ---
Author Organization [facility] Address [address] [place] [address] Care Team Providers Care Reel Hooker Name Role Phone Uday Guerrero MD Primary Care Provider + Miryam Chavarria MANAGER ENERGY Unavailable [phone] Den Thurmansukhi DO Unavailable [phone] Encounter Details Date Type Department Care Team (Late st Contact Info) Description 06/05/2023 Abstract [facility] Occupational Medicine [address] [facility] [address] [place] [address] Joey Castillo, PT [address] [facility] [address] [place] [address] Social History Tobacco Use Types Packs/Day Years [...] Office Visit [facility] [address] [facility] [address] [place] [address] Leann Gil MD [address] [facility] [address] [place] [address] documented as of this encounter Visit Diagnoses Not on filedocumented in this encounter Care Teams Reel Hooker Relationship Specialty Start Date End Date Uday Guerrero MD PCP - General Family Medicine 02/08/24 Miryam Chavarria NP Nurse Practitioner Neurology 07/22/24 Angel Thurman DO [address] [place] [address] Referring Physician Neurology 07/22/24 documented as of this encounter
--- OUTSIDE RECORDS SUMMARY | 2025-04-18 15:01 | XMS_ITS | Clinical Summary ---
Author Organization [facility] Address [address] [place] [address] Phone Care Team Providers Care Import Clerk Name Role Phone Uday Guerrero MD Primary Care Provider [phone] Social History Tobacco Use Types Packs/Day Years Used Date Smoking Tobacco: Never Assessed Comments Unknown Sex and Gender Information Value Date Recorded Sex Assigned at Not on file Legal Sex Female 3:51 PM EST Gender Identity Not on file Sexual Orientation Not on file Plan of Treatment Not on file Care Teams Import Clerk Relationship Specialty Start Date End Date Uday Guerrero MD [address] [facility] [place] [address] PCP - General 01/14/06
--- OUTSIDE RECORDS SUMMARY | 2025-04-18 15:01 | XMS_ITS | Clinical Summary ---
Author Organization [facility] Address [address] [place] [address] Care Team Providers Care Waxer Name Role Phone Uday Guerrero MD Primary Care Provider + Miryam Chavarria CUSTOMER SOLUTIONS SPECIALIST Unavailable [phone] Olman Ericksonflores DO Unavailable [phone] Allergies No known active allergies Medications levothyroxine (Synthroid, Levoxyl) 100 MCG tablet Take 100 mcg by mouth Daily Active acetaminophen (Tylenol) 325 MG tablet Active cyclobenzaprine (Flexeril) 10 MG tablet Active simvastatin (Zocor) 20 MG tablet Take 20 mg by mouth at bedtime 01/19/2023 Active latanoprost (Xalatan) 0.005 % ophthalmic solution 01/05/2023 Active timolol (Timoptic) 0.5 % ophthalmic solution 01/07/2023 Active liothyronine (Cytomel) 5 MCG tablet 1 (one) time each day at the same time 01/27/2024 Active alendronate (Fosamax) 70 MG tablet 11/16/2023 Active magnesium, as gluconate, (Magonate) 500 (27 Mg) MG tablet Take 27 mg by mouth in the morning and 27 mg before bedtime. Active levETIRAcetam XR (Keppra XR) 500 MG 24 hr tabletIndicatio ns:Seizure disorder (HCC) Take 5 tablets by mouth once daily. Do not crush, chew, or split. 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 Memory loss 02/05/2024 Dizziness 02/05/2024 Insomnia, unspecified 02/05/2024 Hair loss 02/05/2024 Vitamin D deficiency 02/05/2024 Paresthesia of skin 02/05/2024 Cervicalgia 06/05/2023 Balance disorder 06/05/2023 Vertigo of central origin 06/05/2023 Resolved Problems Problem Noted Date Diagnosed Date Resolved Date Unilateral vestibular weakness 06/09/2023 06/09/2023 Encounters Date Type Department Care Team Description 02/06/2025 9:45 AM EDT Office Visit [facility] [address] [place] [address] Leann Gil MD Seborrheic keratosis (Primary Dx); Inflamed seborrheic keratosis; Melanocytic nevus of trunk; Lentigines; Capillary angioma; Rash and other nonspecific skin eruption 02/06/2025 Bamboo flowsheet [facility] [address] [place] [address] Leann Gil MD 02/06/2025 Travel from Last 3 Months Family History Medical History Relation Name Comments Heart disease Father Melanoma Neg Hx Relation Name Status Comments Father Mother Alive Social History Tobacco Use Types Packs/Day Years [...] Sign Reading Time Taken Comments Blood Pressure 112/72 01/10/2025 3:58 PM EDT Pulse 62 01/10/2025 3:58 PM EDT Temperature - - Respiratory Rate 16 01/10/2025 3:58 PM EDT Oxygen Saturation 99% 01/10/2025 3:58 PM EDT Inhaled Oxygen Concentration - - Weight 69.4 kg (153 lb) 01/10/2025 3:58 PM EDT Height 165.1 cm (5' 5 ) 01/10/2025 3:58 PM EDT Body Mass Index 25.46 01/10/2025 3:58 PM EDT Plan of Treatment Upcoming Encounters Date Type Department Care Team (Late st Contact Info) Description 02/06/2026 4:00 PM EDT Office Visit [facility] [address] [place] [address] Leann Gil MD [address] [place] [address] Health Maintenance Due Date Last Done Comments CT Colonography 1961 Colonoscopy 1961 Colorectal Cancer Screening 1961 FIT-DNA 1961 FIT 1961 FOBT 1961 Sigmoidoscopy 1961 Pap Smear 1982 Cervical Cancer Screening 01/01/1992 HPV/Cotest 01/01/1992 Mammogram 2001 Influenza Vaccine (#1) 2025 Insurance [employer] Care Teams Waxer Relationship Specialty Start Date End Date Uday Guerrero MD PCP - General Family Medicine 02/08/24 Miryam Chavarria NP Nurse Practitioner Neurology 07/22/24 Angel Thurman DO [address] [place] [address] Referring Physician Neurology 07/22/24
--- OUTSIDE RECORDS SUMMARY | 2025-04-18 15:01 | XMS_ITS | Encounter Summary ---
Author Organization [facility] Address [address] [place], [place] [address] Care Team Providers Care Manager Outreach Name Role Phone Uday Guerrero MD Primary Care Provider [phone] Source Comments In the event this information is protected by the Federal Confidentiality of Alcohol and Drug AbusePatient Records regulations: The Federal rules restrict any use of the information to criminally investigate or prosecute any alcohol or drug abuse patient.[facility] Reason for Visit * Reason Comments Radiology XR Encounter Details Date Type Department Care Team (Late st Contact Info) Description 11/21/2022 Radiology Radiology [address] [place] [address] Randi Sorensen RT(R) Radiology XR Social History Tobacco Use Types Packs/Day Years [...] N ot on file 11/21/2022 Data from: https://www.neighborhoodatlas.[facility]/. Last address used for calculation [address] 11/21/2022 Comments No Sex and Gender Information Value Date Recorded Sex Assigned at Not on file Legal Sex Female 2:48 PM EST Gender Identity Not on file Sexual Orientation Not on file documented as of this encounter Functional Status * Are you deaf or do you have serious difficulty hearing? Answer Date of Assessment Author No 02/28/2014 11:45 AM Tanisha Hernández RN * Are you blind or do you have serious difficulty seeing, even when wearing glasses? Answer Date of Assessment Author No 02/28/2014 11:45 AM Tanisha Hernández RN * Do you have serious difficulty walking or climbing stairs? Answer Date of Assessment Author No 02/28/2014 11:45 AM Tanisha Hernández RN * Do you have difficulty dressing or bathing? Answer Date of Assessment Author No 02/28/2014 11:45 AM Tanisha Hernández RN * Because of a physical, mental, or emotional condition, do you have difficulty doing errands alone such as visiting a doctor's office or shopping? Answer Date of Assessment Author No 02/28/2014 11:45 AM Tanisha Hernández RN documented as of this encounter Mental Status * Because of a physical, mental, or emotional condition, do you have serious difficulty concentrating, remembering, or making decisions? Answer Entry Date Author No 02/28/2014 11:45 AM Tanisha Hernández RN documented in this encounter Progress Notes * Randi Sorensen RT(R) - 11/21/2022 2:12 PM EDT Radiology Service Progress Note PATIENT NAME: Tigist Morton DATE OF SERVICE: November 21, 2022 TIME: 2:12 PM PATIENT IDENTITY VERIFICATION COMPLETED USING TWO (2) IDENTIFIERS: Name and Date of confirmedby patient verbally. FALL SCREENING: Has the patient had 2 falls in the last year or 1 fall with injury or currently using an Ambulatory Assistive Device (Walker, Cane, Wheelchair, Crutches, etc.)? No PATIENT GENDER DATA: Female. status: : No status: NO. PATIENT RELEVANT IMPLANT DATA REVIEWED: Not Applicable RADIOLOGY DEPARTMENT: General X-ray: Exam(s) Completed: Lower Extremity X- Ray(s): Knee, AP / Lat / Tunne / Merchant Right and Wt. Bearing PERIPHERAL IV DATA: Not applicable SIGNED BY: RT New(R) November 21, 2022 2:12 PM documented in this encounter Plan of Treatment Not on file documented as of this encounter Visit Diagnoses Not on filedocumented in this encounter Care Teams Manager Outreach Relationship Specialty Start Date End Date Uday Guerrero MD PCP - General Family Medicine 08/05/13 documented as of this encounter
--- NOTE | 2025-04-18 15:03 | US_ITS ---
The [address] [address] Patient Name: SUMAN BOURNE MRN: [id number] date: 1960 Sex: F Assigned Patient Location: US Current Patient Location: US Accession/Order Number: [id number] Exam Date: 04/18/2025 15:04 Report Date: 04/18/2025 23:26 At the request of: AASHISH AGUILAR MD Procedure: US thyroid US thyroid 04/18/2025 3:17 PM SIGNS AND SYMPTOMS: ^thyroid nodule, left thyroidectomy COMPARISON: 02/10/2024 FINDINGS: Right thyroid lobe is normal in size and echotexture. The right thyroid lobe measures 4 x 1 x 1.1 x 1.2 cm. The isthmus measures just this measures 2 mm in thickness. There is a 7 x 3 x 4 mm hypoechoic solid well-circumscribed wider than tall nodule in the interpolar region on the right which is unchanged. There is a 5 x 3 x 4 mm spongiform wider than tall well-circumscribed isoechoic to hypoechoic nodule at the inferior pole on the right. No cervical lymphadenopathy is noted. US/US thyroid IMPRESSION: TIRADS: 4 (moderately suspicious) Grossly stable moderately suspicious nodule in the right thyroid lobe. This measures up to 7 mm in greatest dimension. Recommendation: Continued interval follow-up is recommended at years 2, 3, and 5 is recommended. Impression dictated by: Augusto Goode M.D. 04/18/2025 11:26 PM Dictation Location: [place] [address] Electronically authenticated by: [id number] Y Date: 04/18/2025 23:26
--- NOTE | 2025-04-18 15:03 | MM_ITS ---
Patient Name: SUMAN BOURNE MR#: [id number] : 1960 Exam Date: 04/18/2025 Ordering Doctor: DR AASHISH AGUILAR . RADIOLOGY REPORT PROCEDURE: MM TOMOSYNTHESIS SCREENING BI COMPARISON: MM TOMOSYNTHESIS SCREENING BI, 08/20/2023. MG MAMM SCREEN 3D ROCIO CAD, 12/18/2020. MG MAMM ROCIO SCRN W CAD DIG, 09/13/2015. MAMMO ROCIO SCREEN, 01/03/2005. INDICATIONS: well adult Calculator Name NCI Breast Cancer Risk Assessment Tool 5 Year Breast Cancer Risk 2.00% Lifetime Breast Cancer Risk 8.40% Personal Breast Cancer No Personal Ovarian Cancer No Treatments None Family Cancers None LOCATION: [facility] BREAST COMPOSITION: The breasts are almost entirely fatty. FINDINGS: RIGHT BREAST: No significant suspicious finding. LEFT BREAST: No significant suspicious finding. DIAGNOSTIC CATEGORY 1--NEGATIVE. RECOMMENDATIONS: ROUTINE MAMMOGRAM AND CLINICAL EVALUATION IN 12 MONTHS. Dictated by: Sunny Lockwood DO on 04/18/2025 at 16:11 Approved by: Sunny Lockwood DO on 04/18/2025 at 16:14
--- OUTSIDE RECORDS SUMMARY | 2025-04-18 15:42 | XMS_ITS | CCD ---
Author Organization [facility] [employer] Care Team Providers Care Material Distributor Name Role Phone PHYSICIAN, DEFAULT Unavailable Unavailable PHYSICIAN, DEFAULT Unavailable Unavailable LAUREN, DR ZENDEJAS Admitting Unavailable HOY, DR ZENDEJAS Attending Unavailable HOY, DR ZENDEJAS Consulting Unavailable HOANGY, DR ZENDEJAS Primary Care Unavailable HOY, DR ZENDEJAS Admitting Unavailable HOY, DR ZENDEJAS Attending Unavailable HOY, DR ZENDEJAS Consulting Unavailable HOANGY, DR ZENDEJAS Primary Care Unavailable ZIEBER, DR BHARATHI Jeff Consulting Unavailable LAUREN, DR ZENDEJAS Admitting Unavailable HOY, DR ZENDEJAS Attending Unavailable HOY, DR ZENDEJAS Consulting Unavailable HOY, DR ZENDEJAS Primary Care Unavailable PAXTONVILLE, DR EFRAIN Rizzo Consulting Unavailable LAUREN, DR ZENDEJAS Admitting Unavailable LAUREN, DR ZENDEJAS Attending Unavailable LAUREN, DR ZENDEJAS Primary Care Unavailable Aashish Guerrero MD Primary Care Provider AASHISH GUERRERO Primary Care Unavailable LOUIE GERMAIN Referring Unavailable AASHISH GUERRERO Primary Care Unavailable LOUIE GERMAIN Attending Unavailable Aashish Guerrero MD Primary Care Provider [phone] Aashish Guerrero MD Primary Care Provider Yasmin Nguyen NP Unavailable Angel Thurman DO Unavailable Aashish Guerrero MD Primary Care Provider Yasmin Nguyen NP Unavailable Yasmin Nguyen NP Unavailable Olman DAWSON Christopher Unavailable NICK DONATO Attending Unavailable LEANN ALVAREZ Attending Unavailable YASMIN NGUYEN Attending Unavailable Medications Current Medications Medication Drug Class(es) Dates Sig (Normalized) Sig (Original) acetaminophen 325 mg oral tablet (9 sources) acetaminophen (Tylenol) 325 MG tablet Active alendronic acid 70 mg oral tablet (9 sources) Bisphosphonate Start: 11-16-2023 alendronate (Fosamax) 70 MG tablet 11/16/2023 Active busPIRone (3 sources) BUSPIRONE HCL (BUSPIRONE ORAL) Indications: H/O: knee surgery Take by mouth. Active BUSPIRONE HCL (B USPIRONE ORAL) Indications: H/O: knee surgery Take by mouth. 0 Active Comment on above: Take by mouth. cyclobenzaprine hydrochloride 10 mg oral tablet (12 sources) Muscle Relaxant cyclobenzaprine (Flexeril) 10 MG tablet Active Comment on above: Take 10-20 mg by nanette th daily at bedtime. docusate sodium 100 mg oral capsule (3 sources) Start: take 1 capsule by mouth every twelve hours as needed docusate sodium (COLACE) 100 mg capsule Take 1 capsule by mouth twice daily as needed for Constipation. 60 capsule 3 09/12/2013 Active Comment on above: Take 1 capsule by mo [facility] twice daily as needed for Constipation. ibuprofen 600 mg oral tablet (3 sources) Nonsteroidal Anti-inflammatory Drug Start: take 1 tablet by mouth every eight hours as needed ibuprofen 600 mg tablet Take 1 tablet by mouth every 8 hours as needed for Pain. 60 tablet 3 09/12/2013 Active Comment on above: Take 1 tablet by nanette every 8 hours as needed for Pain. latanoprost 0.05 mg/ml ophthalmic solution (9 sources) Prostaglandin Analog Start: latanoprost (Xalatan) 0.005 % ophthalmic solution 01/05/2023 Active Start: 01-05-2023 take 1 drop(s) into the eye(s) once daily at bedtime latanoprost (Xalatan) 0.005 % ophthalmic solution INSTILL 1 DROP IN BOTH EYES EVERY DAY AT BEDTIME 01/05/2023 Active 24 hr levETIRAcetam 500 mg extended release oral tablet (12 sources) Start: 12-06-2024 take 5 tablets by mouth once daily levETIRAcetam XR (Keppra XR) 500 MG 24 hr tablet Indications: Seizure disorder (HCC) Take 5 tablets by mouth once daily. Do not crush, chew, or split. 150 tablet 6 12/06/2024 Active Start: 02-09-2024 take 5 tablets by mo uth once daily levETIRAcetam XR (Keppra XR) 500 [...] bedtime. levothyroxine sodium 0.1 mg oral tablet (12 sources) l-Thyroxine take 1 tablet by mouth once daily levothyroxine (Synthroid, Levoxyl) 100 MCG tablet Take 100 mcg by mouth Daily Active Comment on above: Take 100 mcg by mout h daily before breakfast. liothyronine sodium 0.005 mg oral tablet (9 sources) l-Triiodothyronine Start: 4 liothyronine (Cytomel) 5 MCG tablet 1 (one) time each day at the same time 01/27/2024 Active magnesium gluconate 500 mg oral tablet (8 sources) take 1 tablet by mouth in [...] 7 DAYS. simvastatin 20 mg oral tablet (9 sources) HMG-CoA Reductase Inhibitor Start: 3 take 1 tablet by mouth at bedtime simvastatin (Zocor) 20 MG tablet Take 20 mg by mouth at bedtime 01/19/2023 Active 12 hr timolol 5 mg/ml ophthalmic solution (9 sources) beta-Adrenergic Thanh Start: 3 timolol (Timoptic) 0.5 % ophthalmic solution 01/07/2023 Active Start: 01-07-2023 take 1 drop(s) into the eye(s) once daily in the morning timolol (Timoptic) 0.5 % ophthalmic solution INSTILL 1 DROP IN BOTH EYES EVERY MORNING 01/07/2023 Active Problems Active Problems Problem Classification Problem Date Documented Da te Episodic/Chronic Complication of device; implant or graft (2 sources) Pain; Translations: [Pain due to internal orthopedic prosthetic devices, implants and grafts, initial encounter] Episodic Epilepsy; convulsions (13 sources) Seizure disorder; Translations: [Epilepsy, unspecified, not intractable, without status epilepticus] Onset: 02-05-2024 02-05-2024 Chronic Headache; including migraine (13 sources) Migraine; Translations: [Migraine, unspecified, not intractable, without status migrainosus] Onset: 02-05-2024 02-05-2024 Chronic Nutritional deficiencies (9 sources) Vitamin D deficiency; Translations: [Vitamin D deficiency, unspecified] Onset: 02-05-2024 02-05-2024 Chronic Other and unspecified benign neoplasm (2 sources) Melanocytic nevus of trunk; Translations: [Melanocytic nevi of trunk] 02-06-2025 Episodic Other circulatory disease (2 sources) Spider nevus; Translations: [Nevus, non-neoplastic] 02-06-2025 Episodic Other lower respiratory disease (4 sources) Pleurodynia; Translations: [PLEURODYNIA] Onset: 11-25-2021 Episodic Other non-traumatic joint disorders (2 sources) Pain in right knee; Translations: [Pain in joint, lower leg] Onset: 11-21-2022 Episodic Other skin disorders (2 sources) Seborrheic keratosis; Translations: [Other seborrheic keratosis] 02-06-2025 Episodic Other skin disorders (2 sources) Inflamed seborrheic keratosis; Translations: [Inflamed seborrheic keratosis] 02-06-2025 Episodic Other skin disorders (2 sources) Lentiginosis; Translations: [Other melanin hyperpigmentation] 02-06-2025 Episodic Other skin disorders (2 sources) Eruption; Translations: [Rash and other nonspecific skin eruption] 02-06-2025 Episodic Residual codes; unclassified (1 source) Pain, unspecified; Translations: [Pain] Onset: 11-21-2022 Episodic Past or Other Problems Problem Classification Problem Date Documented Date Episodic/Chronic Conditions associated with dizziness or vertigo (20 sources) Vertigo of central origin; Translations: [Vertigo of central origin] Onset: 06-05-2023 Resolved: 06-09-2023 06-05-2023 Episodic Headache; including migraine (9 sources) Headache; Translations: [Headache] Onset: 02-05-2024 02-05-2024 Episodic Malaise and fatigue (9 sources) Malaise; Translations: [Other malaise] Onset: 02-05-2024 02-05-2024 Episodic Other aftercare (9 sources) Patient encounter status; Translations: [Encounter for therapeutic drug level monitoring] Onset: 02-05-2024 02-05-2024 Episodic Other nervous system disorders (9 sources) Impairment of balance; Translations: [Other abnormalities of gait and mobility] Onset: 06-05-2023 06-05-2023 Episodic Other nervous system disorders (9 sources) Paresthesia; Translations: [Paresthesia of skin] Onset: 02-05-2024 02-05-2024 Episodic Other non-traumatic joint disorders (4 sources) Pain in left knee; Translations: [PAIN IN LEFT KNEE] Onset: 09-11-2021 Episodic Other non-traumatic joint disorders (1 source) Effusion, left knee; Translations: [EFFUSION LEFT KNEE] Onset: 09-13-2021 Episodic Other skin disorders (9 sources) Loss of hair; Translations: [Nonscarring hair loss, unspecified] Onset: 02-05-2024 02-05-2024 Episodic Residual codes; unclassified (9 sources) Sleep deprivation; Translations: [Sleep deprivation] Onset: 02-05-2024 02-05-2024 Episodic Residual codes; unclassified (9 sources) Amnesia; Translations: [Other amnesia] Onset: 02-05-2024 02-05-2024 Episodic Residual codes; unclassified (9 sources) Insomnia; Translations: [Insomnia, unspecified] Onset: 02-05-2024 02-05-2024 Episodic Spondylosis; intervertebral disc disorders; other back problems (9 sources) Neck pain; Translations: [Cervicalgia] Onset: 10-13-2023 10-13-2023 Episodic Results Test Name Value Interpretation Reference Range Facility [facility] 11-21-2022 CNOV Office Visit (LOORRM) TIGIST MORTON ([id number]) 1960 F Date Time Provider Department 11/21/22 [...] a syncopal episode on 2015 while in [place]. This resulted in a pelvic fracture. She subsequently underwent surgical treatment with fixation using K wire and cerclage wire technique. She subsequently was placed in a knee immobilizer and following up in [place]. She reports being in the knee immobilizer [...] healed patellar fracture. 2 K wires with vqhtnb-vw-obmnk cerclage wire. The K wires appear to be prominent both proximally and distally. The lateral wire appears to be migrated distally from prior x-rays IMPRESSION: Encounter Diagnosis ICD-10-CM 1. Painful orthopaedic hardware ([facility]) T84.84XA CONSULT TO(TCI)PRE-OP CLEAR SURGICAL REQUEST - [...] medical problems, (more content not included)... Normal [facility] Elena 11-21-2022 NADEEM Telephone (LOORRM) TIGIST MORTON ([id number]) 1960 F Date Time Provider Department 11/21/22 LOUIE GERMAIN During your visit today, we recorded the following information about you: Gui Leal 11/21/2022 3:44 PM Signed Spoke to patient and scheduled PACC for upcoming surgery of right knee with Dr. Germain of 12/10/22. Allergies As of Date: 11/21/2022 (No Known Allergies) Date Reviewed: 01/22/2017 Reviewed by: Lalit Gonzalez) [facility] - Fully Assessed Reason for Visit: Surgical [...] Status:Closed by GUI LEAL on 11/21/22 Normal [facility] XR KNEE 4V AP/PA BOTH+LAT/ME R [...] 4V AP/PA BOTH+LAT/CUCA RT COMPARISON: 2016 RESULT: Voprtw-ef-waxsf wire fixation of the patella. K wires [...] STUDY. PATELLA BAJA. OSTEOARTHRITIS, SIMILAR TO PRIOR Admissions Representative: [employer] Transcribe Date/Time: Nov 21 2022 4:09P Dictated by : JUAN CARLOS GRACIA MD This examination was interpreted and the report reviewed and electronically signed by: JUAN CARLOS GRACIA MD on Nov 21 2022 4:12PM EST [id number] Normal [facility] XR Knee - right 4 Viewson IMPRESSION: HEALED PATELLAR FRACTURE STATUS POST FIXATION. ONE OF THE K WIRES HAS PROBABLY PULLED OUT SLIGHTLY COMPARED TO THE PRIOR STUDY. PATELLA BAJA. OSTEOARTHRITIS, SIMILAR TO PRIOR Admissions Representative: [employer] Transcribe Date/Time: Nov 21 2022 4:09P Dictated [...] 4V AP/PA BOTH+LAT/CUCA RT COMPARISON: 2016 RESULT: Hqsypy-by-dvaao wire fixation of the patella. K wires extend beyond the superior and inferior pole of the patella. Hardware is intact. There is no fracture seen. Patella baja. 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 Osteopenia. No other significant abnormality. ----- DIVISION OF RADIOLOGY Provider, [facility] - 11/21/2022 * * *Final Report* * [...] 4V AP/PA BOTH+LAT/CUCA RT COMPARISON: 2016 RESULT: Ftbzjg-jl-zhyod wire fixation of the patella. K wires [...] STUDY. PATELLA BAJA. OSTEOARTHRITIS, SIMILAR TO PRIOR Admissions Representative: [employer] Transcribe Date/Time: Nov 21 2022 4:09P Dictated by : JUAN CARLOS GRACIA MD This examination was interpreted and the report reviewed and electronically signed by: JUAN CARLOS GRACIA MD on Nov 21 2022 4:12PM EST [facility] Radiology Study observation (narrative) [facility] XR Knee - right 4 ViewsOrder ed By: Ccf Provider on 11-21-[address] [facility] Elena 11-18-2022 CNPN Telephone (4CQ) TIGIST MORTON ([id number]) 1960 F Date Time Provider Department 11/18/22 [...] get a hold of the doctor in [facility] to ask for records from when she was hospitalized in 07/17/[address] Germain office could try calling them to see if they could get the records? Patient wondering if she has to cancel appt if no records are received before appt? Please advise patient. [facility] Phone- [phone] Fax- [phone] Patient has been identified by name and birthdate. Duration of symptoms: N/A Person calling: self Call patient at: at home [phone] (home) [phone] (work) [phone] (cell) Was an appointment scheduled: No Closing statement: Results or non-symptom based questions: Thank you for calling [facility], your call will be returned within [...] Date Reviewed: 01/22/2017 Reviewed by: Lalit Corea [facility] - Fully Assessed Reason for Visit: [...] Status:Closed by RHIANNON PRUETT on 11/18/22 Normal [facility] Superficial Wound Cultureon 03-12-2022 Superficial Wound Culture Result Tab Codes 03/13/22 [facility] GUEST RELATION OFFICER PM ORGANISM: Staphylococcus aureus (O:STAAUR) Quantity of [...] RESISTANT TO ALL B-LACTAM DRUGS. PERFORMED BY: [place] [address] PATHOLOGIST AGENT BASED MODELER RAMIN BRIDGES M.D. Normal [facility] Comment on above: Performed By: #### C USUP #### [address] INSULINon 01-06-2022 Insulin 8.1 uIU/mL Normal 2.6-24.9 [facility] Comment on above: Performed By: #### I NSULIN #### [facility] [address] [place] [address] Dr. Ludmila Farooq CBC AUTO DIFFon 01-04-2022 BASO # 0.0 103/ul Normal 0.0-0.1 [facility] Comment on above: Performed By: #### C BC #### [facility] [address] [place] [address] Dr. Ludmila Farooq Basophils/100 WBC (Bld) 0.3 % Normal 0.2-2.0 [facility] Comment on above: Performed By: #### C BC #### [facility] [address] [place] [address] Dr. Ludmila Farooq EO # 0.1 103/ul Normal 0.0-0.7 [facility] Comment on above: Performed By: #### C BC #### [facility] [address] [place] [address] Dr. Ludmila Farooq Eosinophils/100 WBC (Bld) 1.3 % Normal 0.9-7.0 [facility] Comment on above: Performed By: #### C BC #### [facility] [address] [place] [address] Dr. Ludmila Farooq Erythrocyte distribution width (RBC) [Ratio] 13.2 % Normal 11.0-15.0 [facility] Comment on above: Performed By: #### C BC #### [facility] [address] [place] [address] Dr. Ludmila Farooq Hematocrit (Bld) [Volume fraction] 41.7 % Normal 36.0-48.0 [facility] Comment on above: Performed By: #### C BC #### [facility] [address] [place] [address] Dr. Ludmila Farooq Hemoglobin (Bld) [Mass/Vol] 13.5 g/dL Normal 12.0-16.0 [facility] Comment on above: Performed By: #### C BC #### [facility] [address] [place] [address] Dr. Ludmila Farooq IG # 0.01 10e3/ul Normal 0.00-0.03 [facility] Comment on above: Performed By: #### C BC #### [facility] [address] [place] [address] Dr. Ludmila Farooq IG % 0.3 % Normal 0.0-0.5 [facility] Comment on above: Performed By: #### C BC #### [facility] [address] [place] [address] Dr. Ludmila Farooq LYMPH # 1.6 103/ul Normal 1.2-3.8 [facility] Comment on above: Performed By: #### C BC #### [facility] [address] [place] [address] Dr. Ludmila Farooq Lymphocytes/100 WBC (Bld) 40.7 % Normal 20.5-60.0 [facility] Comment on above: Performed By: #### C BC #### [facility] [address] [place] [address] Dr. Ludmila Farooq MANUAL DIFF REQ NO Normal [facility] Comment on above: Performed By: #### C BC #### [facility] [address] [place] [address] Dr. Ludmila Farooq MCH (RBC) [Entitic mass] 30.8 pg Normal 26.7-34.0 [facility] Comment on above: Performed By: #### C BC #### [facility] [address] [place] [address] Dr. Ludmila Farooq MCHC (RBC) [Mass/Vol] 32.4 g/dL Normal 29.9-35.2 [facility] Comment on above: Performed By: #### C BC #### [facility] [address] [place] [address] Dr. Ludmila Farooq MCV (RBC) [Entitic vol] 95.2 fL Normal 81.0-99.0 [facility] Comment on above: Performed By: #### C BC #### [facility] [address] [place] [address] Dr. Ludmila Farooq MONO # 0.3 103/ul Normal 0.3-0.8 [facility] Comment on above: Performed By: #### C BC #### [facility] [address] [place] [address] Dr. Ludmila Farooq Monocytes/100 WBC (Bld) 7.3 % Normal 1.7-12.0 [facility] Comment on above: Performed By: #### C BC #### [facility] [address] [place] [address] Dr. Ludmila Farooq NEUT # 2.0 103/ul Normal 1.4-6.5 [facility] Comment on above: Performed By: #### C BC #### [facility] [address] [place] [address] Dr. Ludmila Farooq Neutrophils/100 WBC (Bld) 50.1 % Normal 43.0-75.0 [facility] Comment on above: Performed By: #### C BC #### [facility] [address] [place] [address] Dr. Ludmila Farooq Platelet mean volume (Bld) [Entitic vol] 10.5 fL Normal 9.5-13.5 [facility] Comment on above: Performed By: #### C BC #### [facility] [address] [address] [address] Ludmila Farooq PLT 236 103/ul Normal 150-450 [facility] Comment on above: Performed By: #### C BC #### [facility] [address] [place] [address] Dr. Ludmila Farooq RBC 4.38 106/ul Normal 4.20-5.40 [facility] Comment on above: Performed By: #### C BC #### [facility] [address] [place] [address] Dr. Ludmila Farooq WBC 4.0 103/ul Normal 4.0-11.0 [facility] Comment on above: Performed By: #### C BC #### [facility] [address] [place] [address] Dr. Ludmila Farooq FREE THYROXINE INDEX T7on FTI 3.22 Normal 1.30-4.50 [facility] Comment on above: Performed By: #### C MP, T7, LIPID, TSH #### [facility] [address] [place] [address] Dr. Ludmila Farooq T3U 37.0 % Normal 30.0-39.0 [facility] Comment on above: Performed By: #### C MP, T7, LIPID, TSH #### [facility] [address] [place] [address] Dr. Ludmila Farooq T4 [Mass/Vol] 8.70 ug/dL Normal 4.80-13.90 [facility] Comment on above: Performed By: #### C MP, T7, LIPID, TSH #### [facility] [address] [place] [address] Dr. Ludmila Farooq GLYCOHEMOGLOBIN A1Con 2021 ADA RECOMMENDATION SEE BELOW Normal [facility] Comment on above: Result Comment: ADA RECOMMENDED LIMIT 4.0 - 6.0 ADA THERAPEUTIC TARGET < 7.0 ACTION SUGGESTED > 7.0 Performed By: #### A 1C #### [facility] [address] [place] [address] Dr. Ludmila Farooq Glucose [Mass/Vol] 111 mg/dL Normal [facility] Comment on above: Performed By: #### A 1C #### [facility] [address] [place] [address] Dr. Ludmila Farooq HbA1c (Bld) [Mass fraction] 5.5 % Normal 4.5-6.2 [facility] Comment on above: Performed By: #### A 1C #### [facility] [address] [place] [address] Dr. Ludmila Farooq IRONon 01-04-2022 Iron [Mass/Vol] 110.0 ug/dL Normal 50.0-170.0 [facility] Comment on above: Performed By: #### I DEVENDRA #### [facility] [address] [place] [address] Dr. Ludmila Farooq LIPID PROFILEon 01-04-2022 CHOL-HDL RATIO NORM SEE BELOW Normal [facility] Comment on above: Result Comment: 3.3 - 4.4 LOW RISK 4.4 - 7.1 AVERAGE RISK 7.1 - 11.0 MODERATE RISK >11.0 HIGH RISK Performed By: #### C MP, T7, LIPID, TSH #### [facility] [address] [place] [address] Dr. Ludmila Farooq Cholesterol [Mass/Vol] 267 mg/dL Critically high <=200 [facility] Comment on above: Performed By: #### C MP, T7, LIPID, TSH #### [facility] [address] [place] [address] Dr. Ludmila Farooq Cholesterol in HDL [Mass/Vol] 84 mg/dL Critically high 40-60 [facility] Comment on above: Performed By: #### C MP, T7, LIPID, TSH #### [facility] [address] [place] [address] Dr. Ludmila Farooq Cholesterol in LDL [Mass/Vol] 172.0 mg/dL Normal [facility] Comment on above: Performed By: #### C MP, T7, LIPID, TSH #### [facility] [address] [place] [address] Dr. Ludmila Farooq Cholesterol.total/Cho lesterol in HDL [Mass ratio] 3.2 {ratio} Normal [facility] Comment on above: Performed By: #### C MP, T7, LIPID, TSH #### [facility] [address] [address] [address] Ludmila Farooq HDL NORMAL > or = 60 mg/dl - LOW CARDIOVASCULAR RISK <40 mg/dl - HIGH CARDIOVASCULAR RISK Normal [facility] Comment on above: Performed By: #### C MP, T7, LIPID, TSH #### [facility] [address] [address] [address] Ludmila Farooq LDL CALC NORMAL SEE BELOW Normal [facility] Comment on above: Result Comment: <100 mg/dl OPTIMAL 100 - 129 mg/dl NEAR OR ABOVE OPTIMAL 130 - 159 mg/dl BORDERLINE HIGH 160 - 189 mg/dl HIGH >190 mg/dl VERY HIGH Performed By: #### C MP, T7, LIPID, TSH #### [facility] [address] [place] [address] Dr. Ludmila Farooq Triglyceride [Mass/Vol] 55 mg/dL Normal <=150 [facility] Comment on above: Performed By: #### C MP, T7, LIPID, TSH #### [facility] [address] [address] [address] Ludmila Farooq VLDL CALC 11.0 mg/dL Normal [facility] Comment on above: Performed By: #### C MP, T7, LIPID, TSH #### [facility] [address] [place] [address] Dr. Ludmila Farooq OCC BLD IMMUNO SCREENon 12-22 OCCULT BLOOD Negative Normal NEGATIVE [facility] Comment on above: Performed By: #### O BSCRN #### [facility] [address] [place] [address] Dr. Ludmila Farooq PROF 14(COMP METB)on 022 Albumin [Mass/Vol] 3.4 g/dL Normal 3.4-5.[address] [facility] Comment on above: Performed By: #### C MP, T7, LIPID, TSH #### [facility] [address] [place] [address] Dr. Ludmila Farooq Albumin/Globulin [Mass ratio] 1.0 {ratio} Normal [facility] Comment on above: Performed By: #### C MP, T7, LIPID, TSH #### [facility] [address] [address] [address] Ludmila Farooq ALP [Catalytic activity/Vol] 93 U/L Normal 46-116 [facility] Comment on above: Performed By: #### C MP, T7, LIPID, TSH #### [facility] [address] [address] [address] Ludmila Farooq ALT [Catalytic activity/Vol] 22 U/L Normal 14-59 [facility] Comment on above: Performed By: #### C MP, T7, LIPID, TSH #### [facility] [address] [address] [address] Ludmila Farooq Anion gap [Moles/Vol] 9.1 mmol/L Normal [facility] Comment on above: Performed By: #### C MP, T7, LIPID, TSH #### [facility] [address] [place] [address] Dr. Ludmila Farooq AST [Catalytic activity/Vol] 17 U/L Normal 15-37 [facility] Comment on above: Performed By: #### C MP, T7, LIPID, TSH #### [facility] [address] [address] [address] Ludmila Farooq Bilirubin [Mass/Vol] 0.7 mg/dL Normal 0.2-1.0 [facility] Comment on above: Performed By: #### C MP, T7, LIPID, TSH #### [facility] [address] [address] [address] Ludmila Farooq Calcium [Mass/Vol] 8.7 mg/dL Normal 8.5-10.[address] [facility] Comment on above: Performed By: #### C MP, T7, LIPID, TSH #### [facility] [address] [address] [address] Ludmila Farooq Chloride [Moles/Vol] 103 mmol/L Normal 98-107 [facility] Comment on above: Performed By: #### C MP, T7, LIPID, TSH #### [facility] [address] [address] [address] Ludmila Farooq CO2 [Moles/Vol] 31.7 mmol/L Normal 21.0-32.0 [facility] Comment on above: Performed By: #### C MP, T7, LIPID, TSH #### [facility] [address] [address] [address] Ludmila Farooq Creatinine [Mass/Vol] 0.82 mg/dL Normal 0.55-1.02 [facility] Comment on above: Performed By: #### C MP, T7, LIPID, TSH #### [facility] [address] [address] [address] Ludmila Farooq EGFR-AF EQUATORIAL GUINEAN >60 Normal >=60 [facility] Comment on above: Performed By: #### C MP, T7, LIPID, TSH #### [facility] [address] [place] [address] Dr. Ludmila Farooq EGFR-NON AF EQUATORIAL GUINEAN >60 Normal >=60 [facility] Comment on above: Performed By: #### C MP, T7, LIPID, TSH #### [facility] [address] [address] [address] Ludmila Farooq Globulin (S) [Mass/Vol] 3.4 g/dL Normal [facility] Comment on above: Performed By: #### C MP, T7, LIPID, TSH #### [facility] [address] [place] [address] Dr. Ludmila Farooq Glucose [Mass/Vol] 91 mg/dL Normal 74-[address] [facility] Comment on above: Performed By: #### C MP, T7, LIPID, TSH #### [facility] [address] [address] [address] Ludmila Farooq Potassium [Moles/Vol] 3.8 mmol/L Normal 3.5-5.1 [facility] Comment on above: Performed By: #### C MP, T7, LIPID, TSH #### [facility] [address] [place] [address] Dr. Ludmila Farooq Protein [Mass/Vol] 6.8 g/dL Normal 6.4-8.2 [facility] Comment on above: Performed By: #### C MP, T7, LIPID, TSH #### [facility] [address] [address] [address] Ludmila Farooq Sodium [Moles/Vol] 140 mmol/L Normal 136-[address] [facility] Comment on above: Performed By: #### C MP, T7, LIPID, TSH #### [facility] [address] [address] [address] Ludmila Farooq Urea nitrogen [Mass/Vol] 16.0 mg/dL Normal 7.0-18.0 [facility] Comment on above: Performed By: #### C MP, T7, LIPID, TSH #### [facility] [address] [address] [address] Ludmila Farooq Urea nitrogen/Creatinine [Mass ratio] 19.5 mg/mg Normal [facility] Comment on above: Performed By: #### C MP, T7, LIPID, TSH #### [facility] [address] [address] [address] Ludmila Farooq TSHon 01-04-2022 TSH 0.608 uIU/mL Normal 0.358-3.740 [facility] Comment on above: Performed By: #### C MP, T7, LIPID, TSH ####[facility] [id number] [id number]. Ludmila Farooq TSH RANGE SEE BELOW Normal [facility] Comment on above: Result Comment: <0.3 4 UIU/ml HYPERTHYROID 0.34-5.60 UIU/ml EUTHYROID >5.60 UIU/ml HYPOTHYROID Performed By: #### C MP, T7, LIPID, TSH ####[facility] [id number] [place], [place] [address]GqDr. Ludmila Farooq XR RIBS RT PA Gage [...] by: BHARATHI SHAHID Date: 2021-11-26 07:07 Normal [facility] Vital Signs Date Time Vital Sign Value Performing Clinician Junior melton 01-10-2025 15:58-0400 Body height 165.1 cm Nick Donato PA Work Phone: [facility] 01-10-2025 15:58-0400 Body mass index (BMI) [Ratio] 25.46 kg/m2 Nick Donato PA Work Phone: [facility] 01-10-2025 15:58-0400 Body weight 69.4 kg Nick Donato PA Work Phone: [facility] 01-10-2025 15:58-0400 Diastolic blood pressure 72 mm[Hg] Nick Donato PA Work Phone: [facility] 01-10-2025 15:58-0400 Heart rate 62 /min Nick Donato PA Work Phone: [facility] 01-10-2025 15:58-0400 Respiratory rate 16 /min Nick Donato PA Work Phone: [facility] 01-10-2025 15:58-0400 SaO2% (BldA) [Mass fraction] 99 % Nick Donato PA Work Phone: [facility] 01-10-2025 15:58-0400 Systolic blood pressure 112 mm[Hg] Nick Donato PA Work Phone: [facility] 07-25-2024 16:07-0500 Body mass index (BMI) [Ratio] 25.34 kg/m2 Yasmin Nguyen [employer] SALES REPRESENTATIVE Work Phone: [facility] 07-25-2024 16:07-0500 Body weight 71.22 kg Yasmin Nguyen [employer]ING [employer]QU[employer] SALES REPRESENTATIVE Work Phone: [facility] 07-25-2024 16:07-0500 Diastolic blood pressure 67 mm[Hg] Yasmin Nguyen [employer]QU[employer] SALES REPRESENTATIVE Work Phone: [facility] 07-25-2024 16:07-0500 Heart rate 69 /min Yasmin Nguyen [employer]ING EQU[employer] SALES REPRESENTATIVE Work Phone: [facility] 07-25-2024 16:07-0500 Systolic blood pressure 98 mm[Hg] Yasmin Nguyen [employer]QU[employer] SALES REPRESENTATIVE Work Phone: [facility] 11-21-2022 14:20-0400 Body weight 69.85 kg Louie Germain MD Work Phone: [facility] Encounters Encounter Date Encounter Type Care Provider Facility Start: 02-06-2025 End: 02-06-2025 Bamboo flowsavery Alvarez MD Work Phone: [facility] Start: 02-06-2025 End: 02-06-2025 Sheela Alvarez MD Work Phone: [facility] Start: 02-06-2025 End: 02-06-2025 Office outpatient visit 15 minutes Leann Alvarez MD Work Phone: [facility] Comment on above: Seborrheic keratosis (Primary Dx); Inflamed seborrheic keratosis; Melanocytic nevus of trunk; Lentigines; Capillary angioma; Rash and other nonspecific skin eruption Start: 02-06-2025 End: 02-06-2025 ambulatory LEANN ALVAREZ Not Available Start: 01-10-2025 End: 01-10-2025 Office outpatient visit 15 minutes Nick TREVINO Work Phone: [facility] Comment on above: Migraine without sta tus migrainosus, not intractable, unspecified migraine type (CMS/HCC) (Primary Dx); Seizure disorder (CMS/HCC); Dizziness Start: 01-10-2025 End: 01-10-2025 ambulatory NICK DONATO Not Available Start: 01-10-2025 End: 01-10-2025 Ianboo flowsheet Nick TREVINO Work Phone: [facility] Start: 01-10-2025 End: 01-10-2025 Bamarieo flowsheet Nick TREVINO Work Phone: [facility] Start: 07-25-2024 End: 07-25-2024 ambulatory YASMIN NGUYEN Not Available Start: 07-25-2024 End: 07-25-2024 Office outpatient visit 15 minutes Yasmin Nguyen W[employer]QU[employer] SALES REPRESENTATIVE Work Phone: [facility] Comment on above: Seizure disorder (CM S/HCC) (Primary Dx); Migraine without status migrainosus, not intractable, unspecified migraine type (CMS/HCC); Dizziness Start: 07-25-2024 End: 07-25-2024 Bamboo flowsheet Yasmin Nguyen W[employer]ING EQU[employer] SALES REPRESENTATIVE Work Phone: [facility] Start: 07-25-2024 End: 07-25-2024 Bamboo flowsheet Yasmin Nguyen W[employer]ING EQU[employer] SALES REPRESENTATIVE Work Phone: [facility] Start: 11-21-2022 End: 11-21-2022 ambulatory AASHISH GUERRERO Facility:[facility] Start: 11-21-2022 End: 11-21-2022 Patient encounter procedure Louie Germain MD Work Phone: Orthopaedics Comment on above: Painful orthopaedic hardware (HCC) (Primary Dx); Right knee pain, unspecified chronicity Start: 11-21-2022 End: 11-21-2022 Subsequent hospital visit by physician Lindsey Abel 1 Work Phone: Radiology Comment on above: Pain [R52] Start: 11-18-2022 Telephone encounter Louie hughes MD Work Phone: [address] [place] [address] Comment on above: Release Of Medical R ecords Start: 03-25-[address] AASHISH GUERRERO Facility :[facility] Start: 01-08-2022 Encounter for genera l adult medical examination without abnormal findings DR AASHISH GUERRERO [facility] Start: 01-04-2022 End: 01-05-[address] AASHISH GUERRERO Facility:[facility] Start: 01-04-2022 End: 01-05-2022 Encounter for general adult medical examination without abnormal findings DR AASHISH GUERRERO Facility:[facility] Start: 11-25-2021 End: 11-26-[address] AASHISH GUERRERO Facility:[facility] Start: 09-11-2021 End: 09-12-[address] AASHISH GUERRERO Facility:[facility] Start: 12-21-2017 End: 12-22-2017 Ambulatory DEFAULT PHYSICIAN Facility:[facility] Procedures Date Procedure Procedure Detail Performing Clinician Start: 11-21-2022 Radiologic exam knee complete 4/more views Louie Germain MD Work Phone: Plan of Treatment Date Care Activity Detail Author Start: 2036 RSV Vaccine (1 - 1-d ose 75+ series) RSV Vaccine (1 - 1-dose 75+ series) [facility] Start: 02-06-2026 End: 02-06-2026 Patient encounter procedure 02/06/2026 4:00 PM EDT Office Visit [facility] [address] [place] [id number] Leann Alvarez MD [address] [place] [address] [facility] Start: 07-06-2025 End: 07-06-2025 Patient encounter procedure 07/06/2025 3:45 PM EST Office Visit [facility] [address] [place] [id number] Angel Thurman DO [address] [place] [address] [facility] Start: 04-24-2025 Influenza vaccination Influenz a Vaccine (Season Ended) [facility] Start: 02-06-2025 End: 02-06-2025 Patient encounter procedure [facility] Comment on above: Arrived Start: 01-10-2025 End: 01-10-2025 Patient encounter procedure 01/10/2025 4:00 PM EDT Office Visit [facility] [address] [place] [phone] Nick Donato PA [address] [place], [place] [id number] Arrived [facility] Comment on above: Arrived Start: 04-24-2024 Covid-19 Vaccine ( season) Covid-19 Vaccine ( season) [facility] Start: 04-24-2024 Influenza vaccination Influenza Vacc ine (#1) [facility] Start: 08-24-2022 DEPRESSION ASSESSMENT DEPRESSION ASS ESSMENT [facility] Start: 04-24-2022 Influenza vaccination INFLUENZA (#1) [facility] Start: 10-10-2021 COVID-19 VACCINE (4 - Booster for Moderna series) COVID-19 VACCINE (4 - Booster for Moderna series) [facility] Start: 09-12-2016 DIABETES SCREEN DIABETES SCREEN [facility] Start: 09-12-2016 Diabetes Screening Diabetes Screenin g [facility] Start: 01-01-2012 SHINGRIX VACCINE (1 of 2) SHINGRIX V ACCINE (1 of 2) [facility] Start: 2006 COLOGUARD (FIT-DNA) COLOGUARD (FIT-D NA) [facility] Start: 2006 Colonoscopy COLONOSCOPY [facility] Start: 2006 COLORECTAL CANCER SCREENING COLORECTAL CANCER SCREENING [facility] Start: [address] COLONOGRAPHY [facility] Start: 2006 FECAL OCCULT BLOOD FECAL OCCULT BLOO D [facility] Start: 2006 Lipid panel Lipid Screening [facility] Start: 2006 LIPID SCREEN LIPID SCREEN [facility] Start: 2006 Screening for malign ant neoplasm of colon [facility] Start: 2006 SIGMOIDOSCOPY SIGMOIDOSCOPY [facility] Start: 2001 Mammography MAMMOGRAM [facility] Start: 2001 Screening for malign ant neoplasm of breast [facility] Start: 01-01-1992 HPV TESTING HPV TESTING [facility] Start: 01-01-1992 Screening for malign ant neoplasm of cervix [facility] Start: 1982 PAP TESTING PAP TESTING [facility] Start: 1982 Screening for malign ant neoplasm of cervix [facility] Start: 1980 Urine microalbumin profile [facility] Start: 01-01-1980 Anxiety Screening Anxiety Screening [facility] Start: 01-01-1980 Depression Screening Depression Scre ening [facility] Start: 01-01-1980 HEPATITIS C SCREENING HEPATITIS C [facility] Start: 01-01-1980 Hepatitis C screening Hepatitis C [facility] Start: 01-01-1980 HIV SCREENING HIV SCREENING [facility] Start: 01-01-1980 HIV screening HIV Screening [facility] Start: 07-03-1962 COVID-19 VACCINE (#1) COVID-19 VACCI NE (#1) [facility] Start: 1961 Screening for malign ant neoplasm of colon [facility] Payers Date Payer Category Payer Private Health Insurance [employer] [id number] 2016 Unknown 1961 Unknown [id number] 1961 Unknown [id number] 1961 Unknown [id number] 1961 Unknown [id number] 1961 Unknown [id number] 1961 Unknown [id number] 1961 Unknown [id number] 1959 Self-pay 1959 Unknown [id number] Social History Date Type Detail Facility Start: 09-06-2013 End: 02-03-2023 Tobacco smoking status NHIS Never smoked tobacco [facility] Start: 09-06-2013 End: 02-03-2023 Tobacco use and exposure Smokeless tobacco non-user [facility] Start: 03-25-2015 Alcohol intake Current drinke r of alcohol (finding) [facility] Start: 1960 Sex Assigned At Not on file [facility] Start: 11-21-2022 End: 01-10-2025 History of Social function [facility] Start: 11-21-2022 End: 01-10-2025 Area Deprivation Index [facility] National Score (1-10 0), lower number is lower risk [address] [facility] Start: 02-08-2024 End: 02-06-2025 Alcoholic beverage intake Lifetime non-drinker (finding) [facility] Procedure Code Equipment Code Equipment Origin al Text Equipment Identifier Dates Gabillbakari Rincon-Mes h - [id number] Start: 09-12-2013 Mesh Trnvg Jg 45x1.1cm Gyncr - [id number] Start: 09-12-2013 Clinical Notes 09-12-2021 to 02-06-2025 Leann Alvarez MD - 02/06/2025 9:45 AM BELINDA Steiner - 01/10/2025 4:00 PM Dary Germain MD - 11/21/2022 3:14 PM EDTTelephone Encounter - Rhiannon Pruett RN - 11/18/2022 3:11 PM EDT Note Date & Type Note Facility 02-06-2025 History of Presen t illness Narrative Skin Check Location: Patient requests a full body skin examination Dermatologic history: no history of skin cancer, no history of atypical moles Last visit: 1 year ago Rash Location: trunk Duration: 6 months Quality: itchy Associated symptoms: scaly Current treatments: Vaseline Established patient All pertinent medical history, medications, and allergies were reviewed. General Exam: alert, oriented to person, place, and time, normal affect, well appearing Unaccompanied Scalp, Examined , exam limited by hair Right leg Examined Head, Face Examined Left leg Examined Neck Examined Right foot Examined Chest Examined Left foot Examined Back Examined Buttocks Examined Patient kept underwear on Abdomen Examined Digits,nails: Examined Right arm Examined Patient is wearing toenail argentine. Denies any dark streaks. Left arm Examined Lymphatics: Not examined Hands Examined Skin Exam 1. SEBORRHEIC KERATOSIS Generalized Stuck on verrucous, variably pigmented papules and plaques. Patient was counseled regarding these benign growths. Removal is normally not necessary, but they may be removed if they are symptomatic or for cosmetic reasons. 2. INFLAMED SEBORRHEIC KERATOSIS (2) Left Breast, Left Flank Inflamed seborrheic keratoses: pink and brown stuck on verrucous scaly papule with surrounding erythema and bloody crust. The patient was informed that symptomatic seborrheic keratoses are benign growths that become inflamed, itchy, tender, traumatized, caught on clothing, or bleed. Symptomatic lesions can be treated with cryotherapy or curretage. Thicker lesions treated with cryotherapy may require more than one treatment. The patient was instructed to notify the office if abnormal redness or tenderness develops at the treatment site. Cryotherapy today, see procedure note. Diagnosis: Inflamed seborrheic keratosis Indication: Inflamed Consent: Verbal consent was obtained and risks were discussed, including, but not limited to risks of scarring, darker or cork sorter pigmentary changes, recurrence, incomplete removal and infection. Method: Liquid nitrogen was used to treat the lesion(s) with two 5-10 second freeze-thaw cycles Number of lesions treated: 2 Post-procedure instructions: Instructions were given orally and in writing. The office will be contacted if the lesion fails to resolve despite treatment, or if a side effect develops such as abnormal crusting, scabbing, redness or tenderness 3. MELANOCYTIC NEVUS OF TRUNK Generalized Scattered benign appearing, regular brown to light brown melanocytic papules and macules with similar morphology Counseled regarding these benign growths. Rarely, a nevus can develop into malignant melanoma, so any changing nevi should be promptly re-evaluated. 4. LENTIGINES Generalized Scattered cabrera macules in sun-exposed areas. The patient was informed that lentigines are benign pigmented lesions that occur on sun-exposed and sun-damaged skin. No treatment is necessary. Recommended regular use of broad spectrum sunscreen SPF 30 or higher 5. CAPILLARY ANGIOMA Trunk Scattered montez-red papule(s). The patient was informed that angiomas are benign growths on the the skin. No treatment is necessary. 6. RASH AND OTHER NONSPECIFIC SKIN ERUPTION Abdomen (Lower Torso, Anterior) Clear today. Recommended patient use Hydrocortisone cream OTC if returns. Notify office if worsens despite treatment. Next Visit: 1 year, skin check documented in this encounter [facility] 01-10-2025 History of Presen t illness Narrative Images from the original note were not included. Chief Complaint Patient presents with Seizures Subjective Tigist Morton, 64 y.o., female Seizures -on keppra -denies any missed doses of medication -denies any recent seizure -last seizure is unknown Dizziness -continues to have constant dizziness -described as feeling off balance -notices mostly with quick positional changes -admits to imbalance -denies any recent falls Migraines -reports quite a few in September and a aura in October -states since then they have been fine Review of Systems Constitutional: Negative for appetite change, fatigue and fever. Eyes: Positive for visual disturbance. Negative for pain. Respiratory: Negative for cough, shortness of breath and wheezing. Cardiovascular: Negative for chest pain, palpitations and leg swelling. Gastrointestinal: Negative for abdominal pain, constipation, diarrhea and nausea. Musculoskeletal: Negative for arthralgias, gait problem and myalgias. Neurological: Positive for dizziness, seizures and headaches. Negative for tremors and numbness. 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) Headache 01/09/2014 Hypothyroid ([facility]) Insomnia Kidney transplant required in kidney donor donated kidney to son Memory loss 11/05/2011 Osteopenia 11/20/2009 Sleep deprivation 02/16/2018 Vertigo 10/14/2018 Past Surgical History: Procedure Laterality Date APPENDECTOMY HYSTERECTOMY TX TRANSPLANTATION OF KIDNEY donated kidney THYROIDECTOMY, PARTIAL TONSILLECTOMY Family History Problem Relation Name Age of Onset Heart disease Father Melanoma Neg Hx Social History Tobacco Use Smoking status: Never Smokeless tobacco: Never Substance Use Topics Alcohol use: Never Allergies: Patient has no known allergies. Vitals: 01/10/25 1558 BP: 112/72 Pulse: 62 Resp: 16 SpO2: 99% Body mass index is 25.46 kg/m . Weight: 153 lb Neurologic exam: Mental status: Well nourished, well developed and in no acute distress. Grossly oriented to person, place and time. Recent and remote memory are intact. Language is fluent without aphasia. Attention and concentration are normal. Fund of knowledge is appropriate for level of education. Cranial nerves: CN II: Visual acuity is normal. Visual robles full to confrontation. CN III, IV, : pupils equal round and reactive to light. Extraocular movements intact. No ptosis present. CN V: Facial sensation is normal. CN VII: Full and symmetric facial movement. CN VIII: Hearing is intact. CN IX and X: Palate elevates symmetrically. CN XI: Shoulder shrug is normal bilaterally. CN XII: Tongue is midline without atrophy or fasciculation. Motor: RUE Strength deltoid, , biceps , triceps , wrist extensors , wrist flexor , site physician strength 5/5. LUE Strength deltoid , biceps , triceps , wrist extensors , wrist flexor , site physician strength 5/5. RLE Strength illopsoas, quadriceps, tibialis anterior, and gastrocnemius strength 5/5. LLE Strength illopsoas, quadriceps, tibialis anterior, and gastrocnemius strength 5/5. Normal tone x4 extremities. Bulk is normal. Sensory: Sensation is intact to light touch throughout distal extremities. Reflexes: RUE biceps reflex 2+ , brachioradialis reflex 2+. LUE biceps reflex 2+ , brachioradialis reflex 2+. RLE knee reflex 2+ . LLE knee reflex 2+. Franklin's Sign negative. 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 MRI brain with and without contrast on 01/29/2011: Stable. No acute intracranial findings. 2 hour EEG at [facility] on 10/17/21: prelim normal Labs 10/06/20: TSH and B12 WNL. Assessment/Plan Diagnoses and all orders for this visit: Seizure disorder (CMS/HCC) The patient has a history of seizure. Patient is currently taking Keppra XR 500 mg tablets, 5 tablets po qhs. Previously her most recent EEG was in 2008. No seizure activity reportedly in several years. Patient was having occasional auras so we repeated a 2 hour EEG 10/17/21 which was normal. She states these are rare and infreqeunt (only once in the last 6 months) PLAN: - Continue Keppra XR 500 mg, 5 tablets PO at bedtime - Consider repeat EEG with longer term EEG to follow if auras persist or become more frequent - Medication compliance encouraged - Consider updating blood work for monitoring in regards to seizure medications at follow up Migraine without status migrainosus, not intractable, unspecified migraine type (CMS/HCC) Patient has 0-1 migraines per month. These can cause blurry vision. No longer taking fioricet as an abortive and currently does not feel migraines are overly bothersome. Migraine aura versus seizure aura has been considered. PLAN: - Okay to utilize Tylenol +/- Benadryl when necessary to abort migraines. This combination has been very successful for her. - Recommended adequate hydration, sleep hygiene, regular exercise as tolerated and avoidance of triggers. Dizziness The patient has had complaints of dizziness. Previously taking cyproheptadine though she has been less fatigued since discontinuation. She continues with fluctuating symptoms. I offered resuming cyproheptadine for dizziness. She would like to hold off, as she feels her symptoms are tolerable. PLAN: - Continue home vestibular exercises Follow up in 6 months or sooner if symptoms worsen, fail to improve, or should a new neurological concern arise. Pt has been fully educated on their diagnosis, treatment options, follow up plan, and return instructions Nick Donato PA-C documented in this encounter [facility] 11-21-2022 Note HNO ID: [id number] Author: Louie Germain MD Service: ? Author [...] a syncopal episode on 2015 while in [place]. This resulted in a pelvic fracture. She subsequently underwent surgical treatment with fixation using K wire and cerclage wire technique. She subsequently was placed in a knee immobilizer and following up in [place]. She reports being in the knee immobilizer [...] healed patellar fracture. 2 K wires with [id number] cerclage wire. The K wires appear to [...] the hardware r (more content not included)... [facility] 11-21-2022 Note HNO ID: [id number] Author: Randi Sorensen RT(R) Service: ? Author [...] PERIPHERAL IV DATA: Not applicable SIGNED BY: Randi Sorensen RT(R) November 21, 2022 2:12 PM [facility] 11-21-2022 History of Presen t illness Narrative [...] a syncopal episode on 2015 while in [place]. This resulted in a pelvic fracture. She subsequently underwent surgical treatment with fixation using K wire and cerclage wire technique. She subsequently was placed in a knee immobilizer and following up in [place]. She reports being in the knee immobilizer [...] HISTORY: PAST MEDICAL HISTORY Diagnosis Date Epilepsy ([facility]) Glaucoma Hypothyroid SOCIAL HISTORY: Tobacco Use: Never [...] healed patellar fracture. 2 K wires with [id number] cerclage wire. The K wires appear to be prominent both proximally and distally. The lateral wire appears to be migrated distally from prior x-rays IMPRESSION: Encounter Diagnosis ICD-10-CM 1. Painful orthopaedic hardware ([facility]) T84.84XA CONSULT TO(TCI)PRE-OP CLEAR SURGICAL REQUEST - [...] in this encounter [facility] 11-18-2022 Miscellaneous Notes Called patient and let her know that [...] get a hold of the doctor in [facility] to ask for records from when she was hospitalized in 07/17/[address] Germain office could try calling them to see if they could get the records? Patient wondering if she has to cancel appt if no records are received before appt? Please advise patient. [facility] Phone- [phone] Fax- [phone] Patient has been identified by name and birthdate. Duration of symptoms: N/A Person calling: self Call patient at: at home [phone] (home) [phone] (work) [phone] (cell) Was an appointment scheduled: No Closing statement: Results or non-symptom based questions: Thank you for calling [facility], your call will be returned within the next business day. Anne Sanches documented in this encounter [facility] 09-12-2021 Note PROCEDURE: XR KNEE L T 4V or > COMPARISON: None. HISTORY: Pain FINDINGS: BONES:No acute fracture or dislocation. Minimal enthesopathic spurring of the patella at the quadriceps insertion SOFT TISSUES:Negative. No visible soft tissue swelling. EFFUSION:Small suprapatellar joint effusion OTHER: Negative. IMPRESSION: Small joint effusion Electronically authenticated by: EFRAIN GRANT Date: 2021-09-12 07:36 [facility] Evaluation note Diagnosis Painful orthopaedic hardware (HCC)- Primary Other complications due to other internal orthopedic device, implant, and graft Right knee pain, unspecified chronicity Painful orthopaedic hardware (HCC) Other complications due to other internal orthopedic device, implant, and graft documented [facility] Diagnosis Pain Generalized pain [facility] Diagnosis Seizure disorder (CMS/HCC)- Primary Unspecified epilepsy without mention of intractable epilepsy Migraine without status migrainosus, not intractable, unspecified migraine type (CMS/HCC) Dizziness Dizziness and giddiness [facility] Diagnosis Migraine without status migrainosus, not intractable, unspecified migraine type (CMS/HCC)- Primary Seizure disorder (CMS/HCC) Unspecified epilepsy without mention of intractable epilepsy Dizziness Dizziness and giddiness [facility]* Diagnosis Seborrheic keratosis- Primary Inflamed seborrheic keratosis Melanocytic nevus of trunk Benign neoplasm of skin of trunk, except scrotum Lentigines Capillary angioma Nevus, non-neoplastic Rash and other nonspecific skin eruption [facility] Diagnostic Procedure Only (Routine) - Closed Specialty Diagnoses / Procedures Referred By Jimenez vásquez Referred To Contact XR IMAGING Diagnoses Pain Procedures XR KNEE GENERAL 4V AP BOTH/PA BOTH/LAT/MERC RIGHT RADIOLOGIC EXAM KNEE COMPLETE 4/MORE VIEWS Louie Germain MD [address] [facility] [place] [address] [place] [address] Referral ID Status Reason Start Date Expiration Date V isits Requested Visits Authorized [id number] Closed Auto-Generate d Referral 11/11/2022 12/11/2023 1 1 [facility] for visit Narrative* Diagnostic Procedure Only (Routine) - Closed Specialty Diagnoses / Procedures Referred By Contac t Referred To Contact XR IMAGING Diagnoses Pain Procedures XR KNEE GENERAL 4V AP BOTH/PA BOTH/LAT/MERC RIGHT RADIOLOGIC EXAM KNEE COMPLETE 4/MORE VIEWS Louie Germain MD [address] [place] [address] [place] [address] Referral ID Status Reason Start Date Expiration Date V isits Requested Visits Authorized [id number] Closed Auto-Generate d Referral 11/11/2022 12/11/2023 [address] [facility] Summary Purpose Family History No Family History Records FoundNo Family History Records FoundNo Family History Records FoundNo Family History Records FoundNo Family History Records Found Advance Directives No Advanced Directives Records FoundNo Advanced Directives Records FoundNo Advanced Directives Records FoundNo Advanced Directives Records FoundNo Advanced Directives Records Found Additional Source Comments INFORMATION SOURCE (unrecogn ized section and content) DATE CREATED AUTHOR 02/11/2018 [facility] DATE CREATED AUTHOR AUTHOR'S ORGANIZ ATION 01/24/2022 [facility] DATE CREATED AUTHOR AUTHOR'S ORGANIZ ATION 03/22/2022 [facility] DATE CREATED AUTHOR AUTHOR'S ORGANIZ ATION 11/22/2022 [facility] DATE CREATED AUTHOR AUTHOR'S ORGANIZ ATION 02/07/2025 [facility] EPIC Source Comments (unrecognize d section and content) In the event this informatio n is protected by the Federal Confidentiality of Alcohol and Drug Abuse Patient Records regulations: The Federal rules restrict any use of the information to criminally investigate or prosecute any alcohol or drug abuse patient.[facility] the event this information is protected by the Federal Confidentiality of Alcohol and Drug Abuse Patient Records regulations: The Federal rules restrict any use of the information to criminally investigate or prosecute any alcohol or drug abuse patient.[facility] the event this information is protected by the Federal Confidentiality of Alcohol and Drug Abuse Patient Records regulations: The Federal rules restrict any use of the information to criminally investigate or prosecute any alcohol or drug abuse patient.[facility] Reason for Visit (unrecogniz ed section and content) Reason Comments Release Of Medical Records Reason Comments New Reason Comments Seizures Migraine Dizziness Reason Comments Seizures Reason Comments Skin Check Rash Care Teams (unrecognized sec tion and content) Material Distributor Relationship Specialty Start Date End Date Aashish Guerrero MD PCP - General Family Medicine 08/05/13 Material Distributor Relationship Specialty Start Date End Date Aashish Guerrero MD PCP - General Family Medicine 08/05/13 Material Distributor Relationship Specialty Start Date End Date Aashish Guerrero MD PCP - General Family Medicine 08/05/13 Material Distributor Relationship Specialty Start Date End Date Aashish Guerrero MD [address] [facility] [place] [address] PCP - General Family Medicine 02/08/24 Yasmin Nguyen NP [address] [address] Nurse Practitioner Neurology 07/22/24 Angel Thurman DO [address] [place] [id number] Referring Physician Neurology 07/22/24 Material Distributor Relationship Specialty Start Date End Date Aashish Guerrero MD [address] [place] [address] PCP - General Family Medicine 02/08/24 Yasmin Nguyen NP [address] [place] [id number] Nurse Practitioner Neurology 07/22/24 Angel Thurman DO [address] [place] [id number] Referring Physician Neurology 07/22/24 Material Distributor Relationship Specialty Start Date End Date Aashish Guerrero MD PCP - General Family Medicine 02/08/24 Yasmin Nguyen NP Nurse Practitioner Neurology 07/22/24 Angel Thurman DO [address] [address] Referring Physician Neurology 07/22/24 Material Distributor Relationship Specialty Start Date End Date Aashish Guerrero MD PCP - General Family Medicine 02/08/24 Yasmin Nguyen NP Nurse Practitioner Neurology 07/22/24 Angel Thurman DO [address] [place] [id number] Referring Physician Neurology 07/22/24 Material Distributor Relationship Specialty Start Date End Date Aashish Guerrero MD PCP - General Family Medicine 02/08/24 Yasmin Nguyen NP Nurse Practitioner Neurology 07/22/24 Angel Thurman DO [address] [address] Referring Physician Neurology 07/22/24 Material Distributor Relationship Specialty Start Date End Date Aashish Guerrero MD PCP - General Family Medicine 02/08/24 Yasmin Nguyen NP Nurse Practitioner Neurology 07/22/24 Angel Thurman DO [address] [place] [phone] Referring Physician Neurology 07/22/24 FOR RECORDS PERTAINING [...] BE BASED ON THE PRIMARY CLINICAL RECORDS. [facility] [employer] [facility]. provides no warranty or guarantee of the accuracy or completeness of information in this document.
== END 2025-04-18 15:00 | disposition home or self-care (01) ==
LOC: US 14:59
PROVIDERS: PCP Family Medicine; Visit Provider Family Medicine
DX: Z00.00 Encounter for general adult medical examination without abnormal findings (principal); E04.1 Nontoxic single thyroid nodule; Z12.31 Encounter for screening mammogram for malignant neoplasm of breast
CPT/HCPCS: 76536; 77063; 77067

== ENCOUNTER 2025-04-22 08:53 | Outpatient (OUT) | payer OTHER, SELFPAY ==
--- OUTSIDE RECORDS SUMMARY | 2024-10-27 04:14 | XMS_ITS ---
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 [address] [place] [address] 10/27/2024 David Guerrero Plan Of Treatment No Information Progress Notes * Tigist MORTON LDOB:[birth year] (63 yo F)Acc No.[id number]:10/27/2024 Patient: Tigist PALACIO :1960 A ge:63 Y S ex:Female Address:[facility] [place], [address] * true * Date: Generated for Akbari viky/Fapadmag/eTransmitting on: 0 04/22/2025 08:56 AM EDT
--- OUTSIDE RECORDS SUMMARY | 2025-04-05 12:00 | XMS_ITS ---
Author Organization [facility] in [place] Address [address] [place] [address] Care Team Providers Care Legal Secretary Receptionist Name Role Phone David Aguilar Primary Care Provider [phone] Allergies No Known Allergies Results Component Value Reference Range Notes US THYROID Reviewed date:04/19/2025 06:46:30 PM Interpretation: Performing Lab: Notes/Report: Source Facility: [place] [address] Ultrasound Report Signed Patient: TIGIST MORTON MR#: [id number] : 1960 Acct:[id number] Age/Sex: 64 / F ADM Date: 04/18/25 Loc: US Attending Dr: Aashish Aguilar M.D. Ordering Physician: Aashish Aguilar M.D. Date of Service: 04/18/25 Procedure(s): US thyroid Accession Number(s): [id number] cc: Aashish Aguilar M.D. [place] [id number] Patient Name: TIGIST MORTON MRN: [facility]:[id number] date: 1960 Sex: F Assigned Patient Location: US Current Patient Location: US Accession/Order Number: [id number] Exam Date: 04/18/2025 15:04 Report Date: 04/18/2025 23:26 At the request of: AASHISH AGUILAR MD Procedure: US thyroid US thyroid 04/18/2025 3:17 PM SIGNS AND SYMPTOMS: thyroid nodule, left thyroidectomy COMPARISON: 02/10/2024 FINDINGS: Right thyroid lobe is normal in size and echotexture. The right thyroid lobe measures 4 x 1 x 1.1 x 1.2 cm. The isthmus measures just this measures 2 mm in thickness. There is a 7 x 3 x 4 mm hypoechoic solid well-circumscribed wider than tall nodule in the interpolar region on the right which is unchanged. There is a 5 x 3 x 4 mm spongiform wider than tall well-circumscribed isoechoic to hypoechoic nodule at the inferior pole on the right. No cervical lymphadenopathy is noted. US/US thyroid IMPRESSION: TIRADS: 4 (moderately suspicious) Grossly stable moderately suspicious nodule in the right thyroid lobe. This measures up to 7 mm in greatest dimension. Recommendation: Continued interval follow-up is recommended at years 2, 3, and 5 is recommended. Impression dictated by: Augusto Goode M.D. 04/18/2025 11:26 PM Dictation Location: [place] [address] Electronically authenticated by: [id number] Y Date: 04/18/2025 23:26 Dictated By: Augusto Goode M.D. Signed By: 04/18/252328 DD/ 25 TD/TT: Supervisory Historian: [place] [address] Ultrasound Report Signed Patient: MENARD MR#: [id number] : 1960 Acct:[id number] Age/Sex: 64 / F ADM Date: 04/18/25 Loc: US Attending Dr: Aashish Aguilar M.D. Ordering Physician: Aashish Aguilar M.D. Date of Service: 04/18/25 Procedure(s): US thyroid Accession Number(s): [id number] cc: Aashish Aguilar M.D. [address] [address] Patient Name: TIGIST MORTON MRN: [facility]:[id number] date: 1960 Sex: F Assigned Patient Location: US Current Patient Location: US Accession/Order Numb er: [id number] Exam Date: 04/18/2025 15:04 Report Date: 04/18/2025 23:26 At the request of: AASHISH AGUILAR MD Procedure: US thyroid US thyroid 04/18/2025 3:17 PM SIGNS AND SYMPTOMS: thyroid nodule, left thyroidectomy COMPARISON: 02/10/2024 FINDINGS: Right thyroid lobe i s normal in size and echotexture. The right thyroid lobe measures 4 x 1 x 1.1 x 1.2 cm. The isthmus measures just this measures 2 mm in thickness. There is a 7 x 3 x 4 mm hypoechoic solid well-circumscribed wider than tall nodule in the interp olar region on the right which is unchanged. There is a 5 x 3 x 4 mm spongifor m wider than tall well-circumscribed isoechoic to hypoechoic nodule at the inferior pole on the right. No cervical lymphade nopathy is noted. U S/US thyroid IMPRESSION: TIRADS: 4 (moderatel y suspicious) Grossly stable moder ately suspicious nodule in the right thyroid lobe. This measures up to 7 mm in greatest dimension. Recommendation: Cont inued interval follow-up is recommended at years 2, 3, and 5 is recommended. Impression dictated by: Augusto Goode M.D. 04/18/2025 11:26 PM Dictation Location: [place] [address] Electronically authe nticated by: [id number] Y Date: 04/18/2025 23:26 Dictated By: Augusto Goode M.D. Signed By: 04/18/252328 DD/ 25 TD/TT: Supervisory Historian: REASON FOR VISIT ANNUAL Medications Medication SIG (Take, Route, Frequency, Duration) Notes Start Date End Date Status Liothyronine Sodium 5 MCG 1 tablet on an empty stomach Orally Once a day for 90 days Active Levothyroxine Sodium 100 MCG TAKE 1 TABL ET BY MOUTH EVERY DAY for 30 Active Protonix 40 MG 1 tablet Orally Ever y Evening for 30 day(s) 09/10/2023 Active Keppra XR 500 MG 6 tablet Orally at bedtime Active Simvastatin 20 MG TAKE 1 TABLET BY SHAYY TH EVERY NIGHT for 90 Active Fosamax 70 MG 1 tablet 30 minutes before the first food, beverage or medicine of the day with plain water Orally for 30 day(s) 04/05/2025 Active Biotin 80534 MCG 1 tablet Orally bid Active Alendronate Sodium 70 MG TAKE 1 TABLET B Y MOUTH ONCE A WEEK 30 MINUTES BEFORE FIRST FOOD/DRINK/MED OF THE DAY WITH WATER for 30 days Active Cyclobenzaprine HCl 10 MG TAKE 1 - 2 TAB LETS BY MOUTH EVERYDAY AT BEDTIME for 30 days Active Social History Tobacco Use: Social History Observation Description Date Details (start date - stop date) Never Smoker NA - NA Tobacco Use/Smoking Question Answer Notes Patient is a nonsmoker AUDIT-C (Standard) Question Answer Notes Did you have a drink containing alcohol in the p ast year? No Points 0 Interpretation Negative Vital Signs Weight 155.8 lbs 04/05/2025 Height 66 in 04/05/2025 Blood pressure systolic 102 mm Hg 04/05/20 25 Blood pressure diastolic 62 mm Hg 025 BMI 25.14 kg/m2 04/05/2025 Encounters Encounter Location Date Provider Diagnosis [facility] [address] [place] [address] 04/05/2025 David Jacquesy Well adult Z00.00 an d Thyroid nodule E04.1 Assessments Encounter Date Diagnosis (ICD Code) Assessment Notes Treatment Notes Treatment Clinical Notes Section Notes 04/05/2025 Well adult (ICD-10 - Z00.00) disucssed vascular - mnay need that for varicose veins 04/05/2025 Thyroid nodule (ICD-10 - E04.1) Plan Of Treatment Medication Medication Name Sig Start Date Stop Date Notes Fosamax 70 MG 1 tablet 30 minutes before the first food, beverage or medicine of the day with plain water Orally for 30 day(s) 04/05/2025 Treatment Notes Assessment Notes Well adult disucssed vascular - mnay need that for varicose veins Pending Test Test Name Order Date HEMOGLOBIN A1C (GLYCO) 04/05/2025 IRON, TOTAL 04/05/2025 LIPID PANEL (CHOL/TRIG/HDL/LDL) 04/05/20 25 STOOL OCCULT BLOOD 04/05/2025 MAGNESIUM 04/05/2025 THYROID PANEL (T4/TSH/FREE T3) 5 MM screening mammo BI 04/05/2025 CMP (COMP MET OATES) w/eGFR CKD-EPI 2024 CBC WITH DIFF 04/05/2025 Progress Notes * Tigist MORTON LDOB:[birth year] (64 yo F)Acc No.[id number]:04/05/2025 Progress Note Patient: Tigist PALACIO Provider: Elodia Aguilar ([facility])MD :1960 A ge:64 Y S ex:Female Date:04/05/2025 Address:[place], [id number] Check In:03:54 PM ESTCheck O ut:04:33 PM EST Subjective: * Chief Complaints: * A NNUAL * ROS: E ENT: hearing changes d enies, denies. v isual changes d enies, denies. n on-healing mouth sores d enies, denies. s wollen glands or neck lumps?denies, denies. h oarseness d enies, denies. s ore throat d enies, denies. d ifficulty swallowing d enies, denies. n ose bleeds d enies, denies. n celeste congestion d enies, denies. e ar ache d enies, denies. e ar discharge d enies, denies.?ringing in ears d enies, denies. l ight sensitivity d enies, denies. e ye pain denies, denies. b lurring d enies, denies. e ye irritation d enies, denies. d ouble vision d enies, denies. v ision loss d enies, denies. G eneral/Constitutional: Sweats: D enies, Denies. F atigue d enies, denies.?Sleep problems d enies, denies. A norexia d enies, denies. M alaise d enies, denies. W eight loss d enies, denies. F atigue or Weakness d enies, denies. F ever or Chills d enies, denies. C ardiovascular: Shortness of Breath w/lying flat d enies, denies. L ightheadedness/dizziness d enies, denies. C hest tightness/ heavy pressure d enies, denies.?Swelling of legs, ankles, or feet d enies, denies. W aking up with shortness of breath denies, denies. C hest pain d enies, denies. P alpitations d enies, denies.?Weight gain d enies, denies. R espiratory: Chronic or frequent cough d enies, denies. C oughing up blood d enies, denies. D ifficulty breathing d enies, denies. P roductive cough?denies, denies. S noring d enies, denies. S hortness of breath that awakens from sleep (PND) d enies, denies. C hest pain d enies, denies. S putum production d enies, denies. W heezing d enies, denies. M usculoskeletal: Joint pain d enies, denies. J oint Fluid d enies, denies. B ack pain d enies, denies. K nee pain d enies, denies. N beto pain d enies, denies. J oint Stiffness d enies, denies. M uscle cramps d enies, denies. Weakness of muscles d enies, denies. A rthritis d enies, denies. M uscle aches?denies, denies. P ain in shoulder(s) d enies, denies. S wollen joints d enies, denies. * Active Problem List 780.93 Memory loss Modified On:12/17/2022 Status:confirmed 704.00 Hair loss Modified On:12/17/2022 Status:confirmed G47.00 Insomnia, unspecifie d Modified On:12/17/2022 Status:confirmed R42 Dizziness and giddin ess Modified On:12/17/2022 Status:confirmed G43.909 Migraine headache Modified On:12/17/2022 Status:confirmed G40.909 Seizure disorder Modified On:12/17/2022 Status:confirmed E78.00 Pure hypercholestero lemia, unspecified Modified On:01/13/2023 Status:confirmed E03.9 Hypothyroidism, unsp ecified Modified On:09/15/2023 Status:confirmed M81.0 Age-related osteopor osis without current pathological fracture Modified On:01/13/2023 Status:confirmed 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 M other: alive. B rother(s): alive. S on(s): alive. 3 brother(s) - healthy. 2 son(s) - healthy. . * Social History: T obacco Use: T obacco Use/Smoking P atient is a n onsmoker D rug/Alcohol: A ANIVAL-C (Standard) D id you have a drink containing alcohol in the past year? N o P oints 0 I nterpretation N egative * Medications: T akingAlendronate Sodium 70 MG Tablet TAKE 1 TABLET BY MOUTH ONCE A WEEK 30 MINUTES BEFORE FIRST FOOD/DRINK/MED OF THE DAY WITH WATER Biotin 94050 MCG Tablet 1 tablet Orally bid Cyclobenzaprine HCl 10 MG Tablet TAKE 1 - 2 TABLETS BY MOUTH EVERYDAY AT BEDTIME Keppra XR(levETIRAcetam ER) 500 MG Tablet Extended Release 24 Hour 6 tablet Orally at bedtime Levothyroxine Sodium 100 MCG Tablet TAKE 1 TABLET BY MOUTH EVERY DAY Liothyronine Sodium 5 MCG Tablet 1 tablet on an empty stomach Orally Once a day Protonix(Pantoprazole Sodium) 40 MG Tablet Delayed Release 1 tablet Orally Every Evening Simvastatin 20 MG Tablet TAKE 1 TABLET BY MOUTH EVERY NIGHT Medication List reviewed and reconciled with the patientTaking Alendronate Sodium 70 MG Tablet TAKE 1 TABLET BY MOUTH ONCE A WEEK 30 MINUTES BEFORE FIRST FOOD/DRINK/MED OF THE DAY WITH WATER Taking Biotin 54085 MCG Tablet 1 tablet Orally bid Taking Cyclobenzaprine HCl 10 MG Tablet TAKE 1 - 2 TABLETS BY MOUTH EVERYDAY AT BEDTIME Taking Keppra XR(levETIRAcetam ER) 500 MG Tablet Extended Release 24 Hour 6 tablet Orally at bedtime Taking Levothyroxine Sodium 100 MCG Tablet TAKE 1 TABLET BY MOUTH EVERY DAY Taking Liothyronine Sodium 5 MCG Tablet 1 tablet on an empty stomach Orally Once a day Taking Protonix(Pantoprazole Sodium) 40 MG Tablet Delayed Release 1 tablet Orally Every Evening Taking Simvastatin 20 MG Tablet TAKE 1 TABLET BY MOUTH EVERY NIGHT Medication List reviewed and reconciled with the patient * Allergies: N .K.D.A.no[Allergies Verified] Objective: * Vitals: W t:155.8lbs, Ht: 66 in, BP:102/62mm Hg, BMI:25.14Index, Ht-cm: 167.64 cm, Wt-k.67 kg. * Examination: P hysical Exam: GENERAL: w ell developed, well nourished, in no acute distress , well developed, well nourished, in no acute distress. HEAD: n ormocephalic/atraumatic , normocephalic/atraumatic.? EYES: p upils equal, round and reactive to light, conjunctivae and sclerae normal , pupils equal, round and reactive to light, conjunctivae and sclerae normal.? EARS: n o deformity or lesion of external ear, canals and TM appear normal bilaterally, TM's intact, not inflamed with normal light reflex, hearing grossly normal to conversational speech , no deformity or lesion of external ear, canals and TM appear normal bilaterally, TM's intact, not inflamed with normal light reflex, hearing grossly normal to conversational speech. NOSE: n o deformity, discharge, inflammation, or lesions , no deformity, discharge, inflammation, or lesions. MOUTH: m ucous membranes moist, normal oropharynx and posterior pharynx without lesions or exudates, tongue normal, dentition normal , mucous membranes moist, normal oropharynx and posterior pharynx without lesions or exudates, tongue normal, dentition normal. NECK: n beto supple, no masses or palpable cervical nodes, trachea midline, thyroid without nodules, masses, tenderness, or enlargement , neck supple, no masses or palpable cervical nodes, trachea midline, thyroid without nodules, masses, tenderness, or enlargement. CHEST: n o chest wall deformity, no chest wall tenderness , no chest wall deformity, no chest wall tenderness. LUNGS: n ormal respiratory effort and clear to auscultation, no wheezes, rales, or rhonchi, good air exchange , normal respiratory effort and clear to auscultation, no wheezes, rales, or rhonchi, good air exchange. CARDIO: r egular rate and rhythm, normal S1 and S2, nor murmur, rub, or gallop , regular rate and rhythm, normal S1 and S2, nor murmur, rub, or gallop. PULSES: n ormal capillary refill , normal capillary refill.? ABDOMEN: s oft, non-distended, non-tender, no masses , soft, non-distended, non-tender, no masses. MUSCULOSKELETAL: n o deformity or scoliosis noted, normal range of motion, joints normal, no erythema, edema, effusion, or ecchymosis , no deformity or scoliosis noted, normal range of motion, joints normal, no erythema, edema, effusion, or ecchymosis. EXTREMITY: n o clubbing, cyanosis, edema, or deformity with normal ROM in both upper and lower bilateral extremities , no clubbing, cyanosis, edema, or deformity with normal ROM in both upper and lower bilateral extremities. NEUROLOGIC: g rossly normal , grossly normal. SKIN: n o rashes, ulcerations, or suspicious lesions , no rashes, ulcerations, or suspicious lesions. LYMPH NODES: n o cervical adenopathy, nodes normal , no cervical adenopathy, nodes normal. MENTAL STATUS: a lert and oriented x3, normal mood and affect , alert and oriented x3, normal mood and affect. Assessment: * Assessment: 1. W ell adult - Z00.00 (Primary) 2 . T hyroid nodule - E04.1 ? Plan: * Treatment: 2. T hyroid nodule I maging: US THYROID * Procedure Codes: * * Sign off status: Completed Visit Status: C HK (Check Out) true * Provider: Elodia Aguilar ([facility])MD Date: 0 04/05/2025 Generated for José Miguel salmon/Conradg/eTransmitting on: 0 04/22/2025 08:56 AM EDT History and Physical Notes * Examination Category Sub-Category Detail Notes Category Not es Physical Exam GENERAL: well developed, well nourished, in no acute distress , well developed, well nourished, in no acute distress HEAD: normocephalic/atraum atic , normocephalic/atraumatic EYES: pupils equal, round and reactive to light, conjunctivae and sclerae normal , pupils equal, round and reactive to light, conjunctivae and sclerae normal EARS: no deformity or lesi on of external ear, canals and TM appear normal bilaterally, TM's intact, not inflamed with normal light reflex, hearing grossly normal to conversational speech , no deformity or lesion of external ear, canals and TM appear normal bilaterally, TM's intact, not inflamed with normal light reflex, hearing grossly normal to conversational speech NOSE: no deformity, discha rge, inflammation, or lesions , no deformity, discharge, inflammation, or lesions MOUTH: mucous membranes [place], normal oropharynx and posterior pharynx without lesions or exudates, tongue normal, dentition normal , mucous membranes moist, normal oropharynx and posterior pharynx without lesions or exudates, tongue normal, dentition normal NECK: neck supple, no mass es or palpable cervical nodes, trachea midline, thyroid without nodules, masses, tenderness, or enlargement , neck supple, no masses or palpable cervical nodes, trachea midline, thyroid without nodules, masses, tenderness, or enlargement CHEST: no chest wall deform ity, no chest wall tenderness , no chest wall deformity, no chest wall tenderness LUNGS: normal respiratory e ffort and clear to auscultation, no wheezes, rales, or rhonchi, good air exchange , normal respiratory effort and clear to auscultation, no wheezes, rales, or rhonchi, good air exchange CARDIO: regular rate and rhy thm, normal S1 and S2, nor murmur, rub, or gallop , regular rate and rhythm, normal S1 and S2, nor murmur, rub, or gallop PULSES: normal capillary ref ill , normal capillary refill ABDOMEN: soft, non-distended, non-tender, no masses , soft, non-distended, non- tender, no masses RECTAL: MUSCULOSKELETAL: no deformity or scol iosis noted, normal range of motion, joints normal, no erythema, edema, effusion, or ecchymosis , no deformity or scoliosis noted, normal range of motion, joints normal, no erythema, edema, effusion, or ecchymosis EXTREMITY: no clubbing, cyanosi s, edema, or deformity with normal ROM in both upper and lower bilateral extremities , no clubbing, cyanosis, edema, or deformity with normal ROM in both upper and lower bilateral extremities NEUROLOGIC: grossly normal , dontae ssly normal SKIN: no rashes, ulceratio ns, or suspicious lesions , no rashes, ulcerations, or suspicious lesions LYMPH NODES: no cervical adenopat hy, nodes normal , no cervical adenopathy, nodes normal MENTAL STATUS: alert and oriented x 3, normal mood and affect , alert and oriented x3, normal mood and affect
--- OUTSIDE RECORDS SUMMARY | 2025-04-13 12:45 | XMS_ITS ---
Author Organization The [facility] in [place] Address [address] [place] [address] Care Team Providers Care Plate Maker Zinc Name Role Phone SawyersheriDavid Primary Care Provider [phone] REASON FOR VISIT rf cyclobenzaprine Medications Medication SIG (Take, Route, Frequency, Duration) Notes Start Date End Date Status Cyclobenzaprine HCl 10 MG TAKE 1 - 2 TAB LETS BY MOUTH EVERYDAY AT BEDTIME for 30 days Active Encounters Encounter Location Date Provider Diagnosis [facility] [address] [place] [address] 04/13/2025 David Guerrero Plan Of Treatment Medication Medication Name Sig Start Date Stop Date Notes Cyclobenzaprine HCl 10 MG TAKE 1 - 2 TAB LETS BY MOUTH EVERYDAY AT BEDTIME for 30 days Progress Notes * Tigist MORTON LDOB:[birth year] (64 yo F)Acc No.[id number]:04/13/2025 Patient: Tigist PALACIO :1960 A ge:64 Y S ex:Female Address:[facility] [place] [place], [address] * Refills Refill Cyclobenzaprine HCl Tablet, 10 MG, 60 Tablet, TAKE 1 - 2 TABLETS BY MOUTH EVERYDAY AT BEDTIME, 30 days, Refills=5 * true * Date: Generated for José Miguel salmon/Yvonne/eTransmitting on: 0 04/22/2025 08:56 AM EDT
--- OUTSIDE RECORDS SUMMARY | 2025-04-18 16:21 | XMS_ITS ---
Author Organization [facility] in [place] Address [address] [place] [address] Care Team Providers Care Design Engineering Specialist Name Role Phone David Guerrero Primary Care Provider REASON FOR VISIT mammogram results Encounters Encounter Location Date Provider Diagnosis [facility] [address] [place] [address] 04/18/2025 David Guerrero Plan Of Treatment No Information Progress Notes * Tigist MORTON LDOB:[birth year] (64 yo F)Acc No.[id number]:04/18/2025 Patient: Tigist PALACIO :1960 A ge:64 Y S ex:Female Address:[address] [place], [address] * true * Date: Generated for José Miguel salmon/Yvonne/eTransmitting on: 0 04/22/2025 08:56 AM EDT
--- OUTSIDE RECORDS SUMMARY | 2025-04-19 14:45 | XMS_ITS ---
Author Organization [facility] [place] Address [address] [place] [address] Care Team Providers Care Color Paste Mixer Name Role Phone Daivd Guerrero Primary Care Provider REASON FOR VISIT us thyroid Encounters Encounter Location Date Provider Diagnosis [facility] [address] [place] [address] 04/19/2025 David Guerrero Plan Of Treatment No Information Progress Notes * Tigist MORTON LDOB:[birth year] (64 yo F)Acc No.[id number]:04/19/2025 Patient: Tigist PALACIO :1960 A ge:64 Y S ex:Female Address:[address] [place], [address] * true * Date: Generated for Akbari viky/Fapadmag/eTransmitting on: 0 04/22/2025 08:56 AM EDT
--- OUTSIDE RECORDS SUMMARY | 2025-04-22 08:56 | XMS_ITS | Clinical Summary ---
Author Organization [facility] Address [address] [place], [place] [id number] Care Team Providers Care Stunner Name Role Phone Uday Guerrero MD Primary Care Provider [phone] Allergies No known active allergies Medications levothyroxine [...] N ot on file 11/21/2022 Data from: https://www.[email or web address].medicine.[email or web address]/. Last address used for calculation [address] [...] series) 2036 Medical Devices Implanted Type Area Credit Collections Analyst Device Identifier Shelf Expiration Date Model / Serial / Lot Jennifer Rincon-Mesh - [id number] Implanted:Qty: 1 on 09/12/2013 at [facility] Mesh [employer] 06/23/2016 [id number] / / [id number] Mesh Trnvg Jg 45x1.1cm Gyncr - [id number] Implanted:Qty: 1 on 09/12/2013 at [facility] TVT Device [employer] 02/21/2016 [id number] / / [id number] Procedures Procedure Name Priority Date/Time Associated Diagnosis Comments BASIC METABOLIC PANEL STAT 09/12/2013 10:28 PM EST from Last 3 Months or Most Recently Relevant to Health Maintenance Results * (ABNORMAL) BASIC METABOLIC PNL (09/12/2013 10:28 PM EST) Glucose 100 65 - 100 mg/dL [facility] BUN 7(L) 8 - 25 mg/dL [facility] Creatinine 0.68(L) 0.70 - 1.40 mg/dL [facility] Sodium 137 132 - 148 mmol/L [facility] Potassium 3.6 3.5 - 5.0 mmol/L [facility] Chloride 103 98 - 110 mmol/L [facility] CO2 24 23 - 32 mmol/L [facility] Anion Gap 10 0 - 15 mmol/L [facility] Calcium 8.1(L) 8.5 - 10.5 mg/dL [facility] Blood specimen (specimen) BLOOD SPECIMEN / Unknown 09/12/2013 10:28 PM EST 09/12/2013 10:29 PM EST us Hazel Cobian MD LABORATORY Final Result [facility] [address] [place] [address] from Last 3 Months or Most Recently Relevant to Health Maintenance Insurance [employer] Care Teams Stunner Relationship Specialty Start Date End Date Uday Guerrero MD PCP - General Family Medicine 08/05/13
--- OUTSIDE RECORDS SUMMARY | 2025-04-22 08:56 | XMS_ITS | Encounter Summary ---
Author Organization [facility] Address [address] [place], [place] [id number] Care Team Providers Care Forest Technology Professor Name Role Phone Uday Guerrero MD Primary Care Provider [phone] Source Comments In the event this information is protected by the Federal Confidentiality of Alcohol and Drug AbusePatient Records regulations: The Federal rules restrict any use of the information to criminally investigate or prosecute any alcohol or drug abuse patient.[facility] Reason for Visit * Reason Comments Radiology XR Encounter Details Date Type Department Care Team (Late st Contact Info) Description 11/21/2022 Radiology Radiology [address] [place] [address] Randi Sorensen RT(R) Radiology XR Social History [...] N ot on file 11/21/2022 Data from: https://www.[email or web address].[facility]/. Last address used for calculation [address] [...] on filedocumented in this encounter Care Teams Forest Technology Professor Relationship Specialty Start Date End Date Uday Guerrero MD PCP - General Family Medicine 08/05/13 documented as of this encounter
--- OUTSIDE RECORDS SUMMARY | 2025-04-22 08:56 | XMS_ITS | CCD ---
Author Organization [facility] Care Team Providers Care Strand Galvanizer Name Role Phone PHYSICIAN, DEFAULT Unavailable Unavailable PHYSICIAN, DEFAULT Unavailable Unavailable LAUREN, DR ZENDEJAS Admitting Unavailable HAONGY, DR ZENDEJAS Attending Unavailable HOY, DR ZENDEJAS Consulting Unavailable HOANGY, DR ZENDEJAS Primary Care Unavailable HOY, DR ZENDEJAS Admitting Unavailable HOY, DR ZENDEJAS Attending Unavailable HOY, DR ZENDEJAS Consulting Unavailable HOANGY, DR ZENDEJAS Primary Care Unavailable ZIEBER, DR BHARATHI Jeff Consulting Unavailable LAUREN, DR ZENDEJAS Admitting Unavailable HOY, DR ZENDEJAS Attending Unavailable HOY, DR ZENDEJAS Consulting Unavailable HOY, DR ZENDEJAS Primary Care Unavailable SCOT[place], DR EFRAIN Rizzo Consulting Unavailable LAUREN, DR [...] Take 1 capsule by mo [facility] twice daily as needed for Constipation. ibuprofen [...] Value Interpretation Reference Range Facility [facility] 11-21-2022 CNOV Office Visit (LOORRM) TIGIST MORTON ([id number]) 1960 F Date Time Provider Department 11/21/22 [...] a syncopal episode on 2015 while in [place]. This resulted in a pelvic fracture. She subsequently underwent surgical treatment with fixation using K wire and cerclage wire technique. She subsequently was placed in a knee immobilizer and following up in [place]. She reports being in the knee immobilizer [...] healed patellar fracture. 2 K wires with hvcyzk-jd-ycmeh cerclage wire. The K wires appear to be prominent both proximally and distally. The lateral wire appears to be migrated distally from prior x-rays IMPRESSION: Encounter Diagnosis ICD-10-CM 1. Painful orthopaedic hardware ([facility]) T84.84XA CONSULT TO(TCI)PRE-OP CLEAR SURGICAL REQUEST - [...] medical problems, (more content not included)... Normal [facility] Elena 11-21-2022 NADEEM Telephone (LOORRM) TIGIST MORTON ([id number]) 1960 F Date Time Provider Department 11/21/22 LOUIE GERMAIN During your visit today, we recorded the following information about you: Gui Leal 11/21/2022 3:44 PM Signed Spoke to patient and scheduled PACC for upcoming surgery of right knee with Dr. Germain of 12/10/22. Allergies As of Date: 11/21/2022 (No Known Allergies) Date Reviewed: 01/22/2017 Reviewed by: Lalit Gonzalez) [facility] - Fully Assessed Reason for Visit: Surgical [...] Status:Closed by GUI LEAL on 11/21/22 Normal [facility] XR KNEE 4V AP/PA BOTH+LAT/ME R [...] 4V AP/PA BOTH+LAT/CUCA RT COMPARISON: 2016 RESULT: Djdlnq-ia-nekur wire fixation of the patella. K wires [...] STUDY. PATELLA BAJA. 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 ONE OF THE K WIRES HAS PROBABLY PULLED OUT SLIGHTLY COMPARED TO THE PRIOR STUDY. PATELLA BAJA. 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 K wires extend beyond the superior and inferior pole of the patella. Hardware is intact. There is no fracture seen. Patella baja. 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 Osteopenia. No other significant abnormality. ----- DIVISION OF RADIOLOGY Provider, [facility] - 11/21/2022 * * *Final Report* * [...] 4V AP/PA BOTH+LAT/CUCA RT COMPARISON: 2016 RESULT: Nkogix-ik-ppzrx wire fixation of the patella. K wires [...] STUDY. PATELLA BAJA. 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: [employer] Transcribe Date/Time: Nov 21 2022 4:09P Dictated by : JUAN CARLOS GRACIA MD This examination was interpreted and the report reviewed and electronically signed by: JUAN CARLOS GRACIA MD on Nov 21 2022 4:12PM EST [facility] Radiology Study observation (narrative) [facility] XR Knee - right 4 ViewsOrder ed By: Ccf Provider on 11-21-2022 [facility] Elena 11-18-2022 CNPN Telephone (4CQ) TIGIST MORTON ([id number]) 1960 F Date Time Provider Department 11/18/22 [...] get a hold of the doctor in [facility] to ask for records from when she was hospitalized in 07/17/[address] Germain office could try calling them to see if they could get the records? Patient wondering if she has to cancel appt if no records are received before appt? Please advise patient. [facility] Phone- [phone] Fax- [phone] Patient has been identified by name and birthdate. Duration of symptoms: N/A Person calling: self Call patient at: at home [phone] (home) [phone] (work) [phone] (cell) Was an appointment scheduled: No Closing statement: Results or non-symptom based questions: Thank you for calling [facility], your call will be returned within [...] Date Reviewed: 01/22/2017 Reviewed by: Lalit Corea [facility] - Fully Assessed Reason for Visit: Release [...] Status:Closed by RHIANNON PRUETT on 11/18/22 Normal [facility] Superficial Wound Cultureon 03-12-2022 Superficial Wound Culture Result Tab Codes 03/13/22 [facility] DIRECTOR OF ACADEMIC PM ORGANISM: Staphylococcus aureus (O:STAAUR) Quantity of [...] RESISTANT TO ALL B-LACTAM DRUGS. PERFORMED BY: [place] [address] PATHOLOGIST ARABIC TEACHER RAMIN BRIDGES M.D. Normal [facility] Comment on above: Performed By: #### C USUP #### [address] INSULINon 01-06-2022 Insulin 8.1 uIU/mL Normal 2.6-24.9 [facility] Comment on above: Performed By: #### I NSULIN #### [facility] [address] [place] [address] Dr. Ludmila Farooq CBC AUTO DIFFon 01-04-2022 BASO # 0.0 103/ul Normal 0.0-0.1 [facility] Comment on above: Performed By: #### C BC #### [facility] [address] [place] [address] Dr. Ludmila Farooq Basophils/100 WBC (Bld) 0.3 % Normal 0.2-2.0 [facility] Comment on above: Performed By: #### C BC #### [facility] [address] [place] [address] Dr. Ludmila Farooq EO # 0.1 103/ul Normal 0.0-0.7 The [facility] Comment on above: Performed By: #### C BC #### [facility] [address] [place] [address] Dr. Ludmila Farooq Eosinophils/100 WBC (Bld) 1.3 % Normal 0.9-7.0 [facility] Comment on above: Performed By: #### C BC #### [facility] [address] [place] [address] Dr. Ludmila Farooq Erythrocyte distribution width (RBC) [Ratio] 13.2 % Normal 11.0-15.0 [facility] Comment on above: Performed By: #### C BC #### [facility] [address] [place] [address] Dr. Ludmila Farooq Hematocrit (Bld) [Volume fraction] 41.7 % Normal 36.0-48.0 [facility] Comment on above: Performed By: #### C BC #### [facility] [address] [place] [address] Dr. Ludmila Farooq Hemoglobin (Bld) [Mass/Vol] 13.5 g/dL Normal 12.0-16.0 [facility] Comment on above: Performed By: #### C BC #### [facility] [address] [place] [address] Dr. Ludmila Farooq IG # 0.01 10e3/ul Normal 0.00-0.03 [facility] Comment on above: Performed By: #### C BC #### [facility] [address] [place] [address] Dr. Ludmila Farooq IG % 0.3 % Normal 0.0-0.5 [facility] Comment on above: Performed By: #### C BC #### [facility] [address] [place] [address] Dr. Ludmila Farooq LYMPH # 1.6 103/ul Normal 1.2-3.8 The [facility] Comment on above: Performed By: #### C BC #### [facility] [address] [place] [address] Dr. Ludmila Farooq Lymphocytes/100 WBC (Bld) 40.7 % Normal 20.5-60.0 [facility] Comment on above: Performed By: #### C BC #### [facility] [address] [place] [address] Dr. Ludmila Farooq MANUAL DIFF REQ NO Normal [facility] Comment on above: Performed By: #### C BC #### [facility] [address] [place] [address] Dr. Ludmila Farooq MCH (RBC) [Entitic mass] 30.8 pg Normal 26.7-34.0 The [facility] Comment on above: Performed By: #### C BC #### [facility] [address] [place] [address] Dr. Ludmila Farooq MCHC (RBC) [Mass/Vol] 32.4 g/dL Normal 29.9-35.2 The [facility] Comment on above: Performed By: #### C BC #### [facility] [address] [place] [address] Dr. Ludmila Farooq MCV (RBC) [Entitic vol] 95.2 fL Normal 81.0-99.0 The [facility] Comment on above: Performed By: #### C BC #### [facility] [address] [place] [address] Dr. Ludmila Farooq MONO # 0.3 103/ul Normal 0.3-0.8 The [facility] Comment on above: Performed By: #### C BC #### [facility] [address] [place] [address] Dr. Ludmila Farooq Monocytes/100 WBC (Bld) 7.3 % Normal 1.7-12.0 The [facility] Comment on above: Performed By: #### C BC #### [facility] [address] [place] [address] Dr. Ludmila Farooq NEUT # 2.0 103/ul Normal 1.4-6.5 The [facility] Comment on above: Performed By: #### C BC #### [facility] [address] [place] [address] Dr. Ludmila Farooq Neutrophils/100 WBC (Bld) 50.1 % Normal 43.0-75.0 The [facility] Comment on above: Performed By: #### C BC #### [facility] [address] [place] [address] Dr. Ludmila Farooq Platelet mean volume (Bld) [Entitic vol] 10.5 fL Normal 9.5-13.5 The [facility] Comment on above: Performed By: #### C BC #### [facility] [address] [address] [address] Ludmila Farooq PLT 236 103/ul Normal 150-450 [facility] Comment on above: Performed By: #### C BC #### [facility] [address] [place] [address] Dr. Ludmila Farooq RBC 4.38 106/ul Normal 4.20-5.40 [facility] Comment on above: Performed By: #### C BC #### [facility] [address] [place] [address] Dr. Ludmila Farooq WBC 4.0 103/ul Normal 4.0-11.0 [facility] Comment on above: Performed By: #### C BC #### [facility] [address] [place] [address] Dr. Ludmila Farooq FREE THYROXINE INDEX T7on FTI 3.22 Normal 1.30-4.50 [facility] Comment on above: Performed By: #### C MP, T7, LIPID, TSH #### [facility] [address] [place] [address] Dr. Ludmila Farooq T3U 37.0 % Normal 30.0-39.0 [facility] Comment on above: Performed By: #### C MP, T7, LIPID, TSH #### [facility] [address] [place] [address] Dr. Ludmila Farooq T4 [Mass/Vol] 8.70 ug/dL Normal 4.80-13.90 [facility] Comment on above: Performed By: #### C MP, T7, LIPID, TSH #### [facility] [address] [place] [address] Dr. Ludmila Farooq GLYCOHEMOGLOBIN A1Con 2021 ADA RECOMMENDATION SEE BELOW Normal [facility] Comment on above: Result Comment: ADA RECOMMENDED LIMIT 4.0 - 6.0 ADA THERAPEUTIC TARGET < 7.0 ACTION SUGGESTED > 7.0 Performed By: #### A 1C #### [facility] [address] [place] [address] Dr. Ludmila Farooq Glucose [Mass/Vol] 111 mg/dL Normal [facility] Comment on above: Performed By: #### A 1C #### [facility] [address] [place] [address] Dr. Ludmila Farooq HbA1c (Bld) [Mass fraction] 5.5 % Normal 4.5-6.2 [facility] Comment on above: Performed By: #### A 1C #### [facility] [address] [place] [address] Dr. Ludmila Farooq IRONon 01-04-2022 Iron [Mass/Vol] 110.0 ug/dL Normal 50.0-170.0 [facility] Comment on above: Performed By: #### I DEVENDRA #### [facility] [address] [place] [address] Dr. Ludmila Farooq LIPID PROFILEon 01-04-2022 CHOL-HDL RATIO NORM SEE BELOW Normal [facility] Comment on above: Result Comment: 3.3 - 4.4 LOW RISK 4.4 - 7.1 AVERAGE RISK 7.1 - 11.0 MODERATE RISK >11.0 HIGH RISK Performed By: #### C MP, T7, LIPID, TSH #### [facility] [address] [place] [address] Dr. Ludmila Farooq Cholesterol [Mass/Vol] 267 mg/dL Critically high <=200 [facility] Comment on above: Performed By: #### C MP, T7, LIPID, TSH #### [facility] [address] [place] [address] Dr. Ludmila Farooq Cholesterol in HDL [Mass/Vol] 84 mg/dL Critically high 40-60 [facility] Comment on above: Performed By: #### C MP, T7, LIPID, TSH #### [facility] [address] [place] [address] Dr. Ludmila Farooq Cholesterol in LDL [Mass/Vol] 172.0 mg/dL Normal [facility] Comment on above: Performed By: #### C MP, T7, LIPID, TSH #### [facility] [address] [place] [address] Dr. Ludmila Farooq Cholesterol.total/Cho lesterol in HDL [Mass ratio] 3.2 {ratio} Normal [facility] Comment on above: Performed By: #### C MP, T7, LIPID, TSH #### [facility] [address] [address] [address] Ludmila Farooq HDL NORMAL > or = 60 mg/dl - LOW CARDIOVASCULAR RISK <40 mg/dl - HIGH CARDIOVASCULAR RISK Normal [facility] Comment on above: Performed By: #### C MP, T7, LIPID, TSH #### [facility] [address] [address] [address] Ludmila Farooq LDL CALC NORMAL SEE BELOW Normal [facility] Comment on above: Result Comment: <100 mg/dl OPTIMAL 100 - 129 mg/dl NEAR OR ABOVE OPTIMAL 130 - 159 mg/dl BORDERLINE HIGH 160 - 189 mg/dl HIGH >190 mg/dl VERY HIGH Performed By: #### C MP, T7, LIPID, TSH #### [facility] [address] [place] [address] Dr. Ludmila Farooq Triglyceride [Mass/Vol] 55 mg/dL Normal <=150 [facility] Comment on above: Performed By: #### C MP, T7, LIPID, TSH #### [facility] [address] [address] [address] Ludmila Farooq VLDL CALC 11.0 mg/dL Normal [facility] Comment on above: Performed By: #### C MP, T7, LIPID, TSH #### [facility] [address] [place] [address] Dr. Ludmila Farooq OCC BLD IMMUNO SCREENon 12-22 OCCULT BLOOD Negative Normal NEGATIVE [facility] Comment on above: Performed By: #### O BSCRN #### [facility] [address] [place] [address] Dr. Ludmila Farooq PROF 14(COMP METB)on 022 Albumin [Mass/Vol] 3.4 g/dL Normal 3.4-5.0 [facility] Comment on above: Performed By: #### C MP, T7, LIPID, TSH #### [facility] [address] [place] [address] Dr. Ludmila Farooq Albumin/Globulin [Mass ratio] 1.0 {ratio} Normal [facility] Comment on above: Performed By: #### C MP, T7, LIPID, TSH #### [facility] [address] [address] [address] Ludmila Farooq ALP [Catalytic activity/Vol] 93 U/L Normal 46-116 [facility] Comment on above: Performed By: #### C MP, T7, LIPID, TSH #### [facility] [address] [address] [address] Ludmila Farooq ALT [Catalytic activity/Vol] 22 U/L Normal 14-59 [facility] Comment on above: Performed By: #### C MP, T7, LIPID, TSH #### [facility] [address] [address] [address] Ludmila Farooq Anion gap [Moles/Vol] 9.1 mmol/L Normal [facility] Comment on above: Performed By: #### C MP, T7, LIPID, TSH #### [facility] [address] [place] [address] Dr. Ludmila Farooq AST [Catalytic activity/Vol] 17 U/L Normal 15-37 [facility] Comment on above: Performed By: #### C MP, T7, LIPID, TSH #### [facility] [address] [address] [address] Ludmila Farooq Bilirubin [Mass/Vol] 0.7 mg/dL Normal 0.2-1.0 [facility] Comment on above: Performed By: #### C MP, T7, LIPID, TSH #### [facility] [address] [address] [address] Ludmila Farooq Calcium [Mass/Vol] 8.7 mg/dL Normal 8.5-10.1 [facility] Comment on above: Performed By: #### C MP, T7, LIPID, TSH #### [facility] [address] [address] [address] Ludmila Farooq Chloride [Moles/Vol] 103 mmol/L Normal 98-107 [facility] Comment on above: Performed By: #### C MP, T7, LIPID, TSH #### [facility] [address] [address] [address] Ludmila Farooq CO2 [Moles/Vol] 31.7 mmol/L Normal 21.0-32.0 [facility] Comment on above: Performed By: #### C MP, T7, LIPID, TSH #### [facility] [address] [address] [address] Ludmila Farooq Creatinine [Mass/Vol] 0.82 mg/dL Normal 0.55-1.02 [facility] Comment on above: Performed By: #### C MP, T7, LIPID, TSH #### [facility] [address] [address] [address] Ludmila Farooq EGFR-AF SENEGALESE >60 Normal >=60 [facility] Comment on above: Performed By: #### C MP, T7, LIPID, TSH #### [facility] [address] [place] [address] Dr. Ludmila Farooq EGFR-NON AF SENEGALESE >60 Normal >=60 [facility] Comment on above: Performed By: #### C MP, T7, LIPID, TSH #### [facility] [address] [address] [address] Ludmila Farooq Globulin (S) [Mass/Vol] 3.4 g/dL Normal [facility] Comment on above: Performed By: #### C MP, T7, LIPID, TSH #### [facility] [address] [place] [address] Dr. Ludmila Farooq Glucose [Mass/Vol] 91 mg/dL Normal 74-106 [facility] Comment on above: Performed By: #### C MP, T7, LIPID, TSH #### [facility] [address] [address] [address] Ludmila Farooq Potassium [Moles/Vol] 3.8 mmol/L Normal 3.5-5.1 The [facility] Comment on above: Performed By: #### C MP, T7, LIPID, TSH #### [facility] [address] [place] [address] Dr. Ludmila Farooq Protein [Mass/Vol] 6.8 g/dL Normal 6.4-8.2 [facility] Comment on above: Performed By: #### C MP, T7, LIPID, TSH #### [facility] [address] [address] [address] Ludmila Farooq Sodium [Moles/Vol] 140 mmol/L Normal 136-145 [facility] Comment on above: Performed By: #### C MP, T7, LIPID, TSH #### [facility] [address] [address] [address] Ludmila Farooq Urea nitrogen [Mass/Vol] 16.0 mg/dL Normal 7.0-18.0 [facility] Comment on above: Performed By: #### C MP, T7, LIPID, TSH #### [facility] [address] [address] [address] Ludmila Farooq Urea nitrogen/Creatinine [Mass ratio] 19.5 mg/mg Normal [facility] Comment on above: Performed By: #### C MP, T7, LIPID, TSH #### [facility] [address] [address] [address] Ludmila Farooq TSHon 01-04-2022 TSH 0.608 uIU/mL Normal 0.358-3.740 [facility] Comment on above: Performed By: #### C MP, T7, LIPID, TSH ####[facility] [id number] [id number] Ludmila Farooq TSH RANGE SEE BELOW Normal [facility] Comment on above: Result Comment: <0.3 4 UIU/ml HYPERTHYROID 0.34-5.60 UIU/ml EUTHYROID >5.60 UIU/ml HYPOTHYROID Performed By: #### C MP, T7, LIPID, TSH ####[facility] [id number] [place], [place] [address]GvDr. Ludmila Farooq XR RIBS RT PA Gage [...] BHARATHI SHAHID Date: 2021-11-26 07:07 Normal [facility] Vital Signs Date Time Vital Sign Value Performing Clinician Junior melton 01-10-2025 15:58-0400 Body height 165.1 cm Nick Donato PA Work Phone: [facility] 01-10-2025 15:58-0400 Body mass index (BMI) [Ratio] 25.46 kg/m2 Nick Donato PA Work Phone: [facility] 01-10-2025 15:58-0400 Body weight 69.4 kg Nick Donato PA Work Phone: [facility] 01-10-2025 15:58-0400 Diastolic blood pressure 72 mm[Hg] Nick Donato PA Work Phone: [facility] 01-10-2025 15:58-0400 Heart rate 62 /min Nick Donato PA Work Phone: [facility] 01-10-2025 15:58-0400 Respiratory rate 16 /min Nick Donato PA Work Phone: [facility] 01-10-2025 15:58-0400 SaO2% (BldA) [Mass fraction] 99 % Nick Donato PA Work Phone: [facility] 01-10-2025 15:58-0400 Systolic blood pressure 112 mm[Hg] Nick Donato PA Work Phone: [facility] 07-25-2024 16:07-0500 Body mass index (BMI) [Ratio] 25.34 kg/m2 Yasmin Nguyen [employer]ERAL [employer]ANNING COUNSELOR Work Phone: [facility] 07-25-2024 16:07-0500 Body weight 71.22 kg Yasmin Nguyen [employer]ERAL PLANNING COUNSELOR Work Phone: [facility] 07-25-2024 16:07-0500 Diastolic blood pressure 67 mm[Hg] Yasmin Nguyen FUNERAL PLANNING COUNSELOR Work Phone: [facility] 07-25-2024 16:07-0500 Heart rate 69 /min Yasmin Nguyen FUNERAL PLANNING COUNSELOR Work Phone: [facility] 07-25-2024 16:07-0500 Systolic blood pressure 98 mm[Hg] Yasmin Nguyen FUNERAL PLANNING COUNSELOR Work Phone: [facility] 11-21-2022 14:20-0400 Body weight 69.85 kg Louie Germain MD Work Phone: [facility] Encounters Encounter Date Encounter Type Care Provider Facility Start: 02-06-2025 End: 02-06-2025 Bamboo flowsavery Alvarez MD Work Phone: [facility] Start: 02-06-2025 End: 02-06-2025 Sheela Alvarez MD Work Phone: [facility] Start: 02-06-2025 End: 02-06-2025 Office outpatient visit 15 minutes Leann Alvarez MD Work Phone: [facility] Comment on above: Seborrheic keratosis (Primary [...] Office outpatient visit 15 minutes Yasmin Nguyen [employer]ERAL PLANNING COUNSELOR Work Phone: [facility] Comment on above: Seizure disorder (CM S/HCC) (Primary Dx); Migraine without status migrainosus, not intractable, unspecified migraine type (CMS/HCC); Dizziness Start: 07-25-2024 End: 07-25-2024 Bamboo flowsheet Yasmin Nguyen FUNERAL PLANNING COUNSELOR Work Phone: [facility] Start: 07-25-2024 End: 07-25-2024 Bamboo flowsheet Yasmin Nguyen FUNERAL PLANNING COUNSELOR Work Phone: [facility] Start: 11-21-2022 End: 11-21-2022 ambulatory AASHISH GUERRERO Facility:[facility] Start: 11-21-2022 End: 11-21-2022 Patient encounter procedure Louie Germain MD Work Phone: Orthopaedics Comment on above: Painful orthopaedic hardware (HCC) (Primary Dx); Right knee pain, unspecified chronicity Start: 11-21-2022 End: 11-21-2022 Subsequent hospital visit by physician Lindsey Abel 1 Work Phone: Radiology Comment on above: Pain [R52] Start: 11-18-2022 Telephone encounter Louie hughes MD Work Phone: [address] [place] [address] Comment on above: Release Of Medical R ecords Start: 03-25-[address] AASHISH GUERRERO Facility :[facility] Start: 01-08-2022 Encounter for genera l adult medical examination without abnormal findings DR AASHISH GUERRERO [facility] Start: 01-04-2022 End: 01-05-[address] AASHISH GUERRERO Facility:[facility] Start: 01-04-2022 End: 01-05-2022 Encounter for general adult medical examination without abnormal findings DR AASHISH GUERRERO Facility:[facility] Start: 11-25-2021 End: 11-26-[address] AASHISH GUERRERO Facility:[facility] Start: 09-11-2021 End: 09-12-[address] AASHISH GUERRERO Facility:[facility] Start: 12-21-2017 End: 12-22-2017 Ambulatory DEFAULT PHYSICIAN Facility:[facility] Procedures Date Procedure Procedure Detail Performing Clinician Start: 11-21-2022 Radiologic exam knee complete 4/more views Louie Germain MD Work Phone: Plan of Treatment Date Care Activity Detail Author Start: 2036 RSV Vaccine (1 - 1-d ose 75+ series) RSV Vaccine (1 - 1-dose 75+ series) [facility] Start: 02-06-2026 End: 02-06-2026 Patient encounter procedure 02/06/2026 4:00 PM EDT Office Visit [facility] [address] [place] [id number] Leann Alvarez MD [address] [place] [address] [facility] Start: 07-06-2025 End: 07-06-2025 Patient encounter procedure 07/06/2025 3:45 PM EST Office Visit [facility] [address] [place] [phone] Angel Thurman DO [address] [place] [address] [facility] Start: 04-24-2025 Influenza vaccination Influenz a Vaccine (Season Ended) [facility] Start: 02-06-2025 End: 02-06-2025 Patient encounter procedure [facility] Comment on above: Arrived Start: 01-10-2025 End: 01-10-2025 Patient encounter procedure 01/10/2025 4:00 PM EDT Office Visit [facility] [address] [place] [id number] Nick Donato PA [address] [place], [place] [id number] Arrived [facility] Comment on above: Arrived Start: 04-24-2024 Covid-19 Vaccine ( season) Covid-19 Vaccine ( season) [facility] Start: 04-24-2024 Influenza vaccination Influenza Vacc ine (#1) [facility] Start: 08-24-2022 DEPRESSION ASSESSMENT DEPRESSION ASS ESSMENT [facility] Start: 04-24-2022 Influenza vaccination INFLUENZA (#1) [facility] Start: 10-10-2021 COVID-19 VACCINE (4 - Booster for Moderna series) COVID-19 VACCINE (4 - Booster for Moderna series) [facility] Start: 09-12-2016 DIABETES SCREEN DIABETES SCREEN [facility] Start: 09-12-2016 Diabetes Screening Diabetes Screenin g [facility] Start: 01-01-2012 SHINGRIX VACCINE (1 of 2) SHINGRIX V ACCINE (1 of 2) [facility] Start: 2006 COLOGUARD (FIT-DNA) COLOGUARD (FIT-D NA) [facility] Start: 2006 Colonoscopy COLONOSCOPY [facility] Start: 2006 COLORECTAL CANCER SCREENING COLORECTAL CANCER SCREENING [facility] Start: [address] COLONOGRAPHY [facility] Start: 2006 FECAL OCCULT BLOOD FECAL OCCULT BLOO D [facility] Start: 2006 Lipid panel Lipid Screening [facility] Start: 2006 LIPID SCREEN LIPID SCREEN [facility] Start: 2006 Screening for malign ant neoplasm of colon [facility] Start: 2006 SIGMOIDOSCOPY SIGMOIDOSCOPY [facility] Start: 2001 Mammography MAMMOGRAM [facility] Start: 2001 Screening for malign ant neoplasm of breast [facility] Start: 01-01-1992 HPV TESTING HPV TESTING [facility] Start: 01-01-1992 Screening for malign ant neoplasm of cervix [facility] Start: 1982 PAP TESTING PAP TESTING [facility] Start: 1982 Screening for malign ant neoplasm of cervix [facility] Start: 1980 Urine microalbumin profile [facility] Start: 01-01-1980 Anxiety Screening Anxiety Screening [facility] Start: 01-01-1980 Depression Screening Depression Scre ening [facility] Start: 01-01-1980 HEPATITIS C SCREENING HEPATITIS C [facility] Start: 01-01-1980 Hepatitis C screening Hepatitis C [facility] Start: 01-01-1980 HIV SCREENING HIV SCREENING [facility] Start: 01-01-1980 HIV screening HIV Screening [facility] Start: 07-03-1962 COVID-19 VACCINE (#1) COVID-19 VACCI NE (#1) [facility] Start: 1961 Screening for malign ant neoplasm of colon [facility] Payers Date Payer Category Payer Private Health Insurance [employer] [id number] 2016 Unknown 1961 Unknown [id number] 1961 Unknown [id number] 1961 Unknown [id number] 1961 Unknown [id number] 1961 Unknown [id number] 1961 Unknown [id number] 1961 Unknown [id number] 1959 Self-pay 1959 Unknown [id number] Social History Date Type Detail Facility Start: 09-06-2013 End: 02-03-2023 Tobacco smoking status NHIS Never smoked tobacco [facility] Start: 09-06-2013 End: 02-03-2023 Tobacco use and exposure Smokeless tobacco non-user [facility] Start: 03-25-2015 Alcohol intake Current drinke r of alcohol (finding) [facility] Start: 1960 Sex Assigned At Not on file C [facility] Start: 11-21-2022 End: 01-10-2025 History of Social function [facility] Start: 11-21-2022 End: 01-10-2025 Area Deprivation Index [facility] National Score (1-10 0), lower number is lower risk 70 [facility] Start: 02-08-2024 End: 02-06-2025 Alcoholic beverage intake Lifetime non-drinker (finding) [facility] Procedure Code Equipment Code Equipment Origin al Text Equipment Identifier Dates Gabillbakari Rincon-Mes h - [id number] Start: 09-12-2013 Mesh Trnvg Jg 45x1.1cm Gyncr - [id number] Start: 09-12-2013 Clinical Notes 09-12-2021 to [...] Right arm Examined Patient is wearing toenail israeli. Denies any dark streaks. 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 LUE Strength deltoid , biceps , triceps , wrist extensors , wrist flexor , sales coach strength 5/5. RLE Strength illopsoas, quadriceps, tibialis [...] knee reflex 2+. Franklin's Sign negative. Coordination: Vxrwts-cr-iqay testing not assessed Rapid alternating movements are [...] acute intracranial findings. 2 hour EEG at [facility] on 10/17/21: prelim normal Labs 10/06/20: TSH [...] Nick Donato PA-C documented in this encounter [facility] 11-21-2022 Note HNO ID: [id number] Author: Louie Germain MD Service: ? Author [...] a syncopal episode on 2015 while in [place]. This resulted in a pelvic fracture. She subsequently underwent surgical treatment with fixation using K wire and cerclage wire technique. She subsequently was placed in a knee immobilizer and following up in [place]. She reports being in the knee immobilizer [...] healed patellar fracture. 2 K wires with mdeyrf-sg-zowle cerclage wire. The K wires appear to [...] the hardware r (more content not included)... [facility] 11-21-2022 Note HNO ID: [id number] Author: Randi Sorensen RT(R) Service: ? Author [...] Sorensen RT(R) November 21, 2022 2:12 PM [facility] 11-21-2022 History of Presen t illness [...] a syncopal episode on 2015 while in [place]. This resulted in a pelvic fracture. She subsequently underwent surgical treatment with fixation using K wire and cerclage wire technique. She subsequently was placed in a knee immobilizer and following up in [place]. She reports being in the knee immobilizer [...] HISTORY: PAST MEDICAL HISTORY Diagnosis Date Epilepsy ([facility]) Glaucoma Hypothyroid SOCIAL HISTORY: Tobacco Use: Never [...] healed patellar fracture. 2 K wires with wxobge-ba-lkwqp cerclage wire. The K wires appear to be prominent both proximally and distally. The lateral wire appears to be migrated distally from prior x-rays IMPRESSION: Encounter Diagnosis ICD-10-CM 1. Painful orthopaedic hardware ([facility]) T84.84XA CONSULT TO(TCI)PRE-OP CLEAR SURGICAL REQUEST - [...] Louie Germain MD documented in this encounter [facility] 11-18-2022 Miscellaneous Notes Called patient and [...] get a hold of the doctor in [facility] to ask for records from when she was hospitalized in 07/17/[address] Germain office could try calling them to see if they could get the records? Patient wondering if she has to cancel appt if no records are received before appt? Please advise patient. [facility] Phone- [phone] Fax- [phone] Patient has been identified by name and birthdate. Duration of symptoms: N/A Person calling: self Call patient at: at home [phone] (home) [phone] (work) [phone] (cell) Was an appointment scheduled: No Closing statement: Results or non-symptom based questions: Thank you for calling [facility], your call will be returned within the next business day. Anne Sanches documented in this encounter [facility] 09-12-2021 Note PROCEDURE: XR KNEE L T 4V or > COMPARISON: None. HISTORY: Pain FINDINGS: BONES:No acute fracture or dislocation. Minimal enthesopathic spurring of the patella at the quadriceps insertion SOFT TISSUES:Negative. No visible soft tissue swelling. EFFUSION:Small suprapatellar joint effusion OTHER: Negative. IMPRESSION: Small joint effusion Electronically authenticated by: EFRAIN GRANT Date: 2021-09-12 07:36 [facility] Evaluation note Diagnosis Painful orthopaedic hardware (HCC)- Primary Other complications due to other internal orthopedic device, implant, and graft Right knee pain, unspecified chronicity Painful orthopaedic hardware (HCC) Other complications due to other internal orthopedic device, implant, and graft [facility] Pain Generalized pain [facility] Diagnosis Seizure disorder (CMS/HCC)- Primary [...] KNEE COMPLETE 4/MORE VIEWS Louie Germain MD [address] [facility] [place] [address] [place] [address] Referral ID Status Reason Start Date Expiration Date V isits Requested Visits Authorized [id number] Closed Auto-Generate d Referral 11/11/2022 12/11/2023 1 1 [facility] for visit Narrative* Diagnostic Procedure Only (Routine) - Closed Specialty Diagnoses / Procedures Referred By Contac t Referred To Contact XR IMAGING Diagnoses Pain Procedures XR KNEE GENERAL 4V AP BOTH/PA BOTH/LAT/MERC RIGHT RADIOLOGIC EXAM KNEE COMPLETE 4/MORE VIEWS Louie Germain MD [address] [place] [address] [place] [address] Referral ID Status Reason Start Date Expiration Date V isits Requested Visits Authorized [id number] Closed Auto-Generate d Referral 11/11/2022 12/11/2023 1 1 [facility] Summary Purpose Family History No Family History Records FoundNo Family History Records FoundNo Family History Records FoundNo Family History Records FoundNo Family History Records Found Advance Directives No Advanced Directives Records FoundNo Advanced Directives Records FoundNo Advanced Directives Records FoundNo Advanced Directives Records FoundNo Advanced Directives Records Found Additional Source Comments INFORMATION SOURCE (unrecogn ized section and content) DATE CREATED AUTHOR 02/11/2018 [facility] DATE CREATED AUTHOR AUTHOR'S ORGANIZ ATION 01/24/2022 [facility] DATE CREATED AUTHOR AUTHOR'S ORGANIZ ATION 03/22/2022 [facility] DATE CREATED AUTHOR AUTHOR'S ORGANIZ ATION 11/22/2022 [facility] DATE CREATED AUTHOR AUTHOR'S ORGANIZ ATION 02/07/2025 [facility] EPIC Source Comments (unrecognize d section and content) In the event this informatio n is protected by the Federal Confidentiality of Alcohol and Drug Abuse Patient Records regulations: The Federal rules restrict any use of the information to criminally investigate or prosecute any alcohol or drug abuse patient[facility] the event this information is protected by the Federal Confidentiality of Alcohol and Drug Abuse Patient Records regulations: The Federal rules restrict any use of the information to criminally investigate or prosecute any alcohol or drug abuse patient.[facility] the event this information is protected by the Federal Confidentiality of Alcohol and Drug Abuse Patient Records regulations: The Federal rules restrict any use of the information to criminally investigate or prosecute any alcohol or drug abuse patient[facility] Reason for Visit (unrecogniz ed section and content) Reason Comments Release Of Medical Records Reason Comments New Reason Comments Seizures Migraine Dizziness Reason Comments Seizures Reason Comments Skin Check Rash Care Teams (unrecognized sec tion and content) Strand Galvanizer Relationship Specialty Start Date End Date Aashish Guerrero MD PCP - General Family Medicine 08/05/13 Strand Galvanizer Relationship Specialty Start Date End Date Aashish Guerreor MD PCP - General Family Medicine 08/05/13 Strand Galvanizer Relationship Specialty Start Date End Date Aashish Guerrero MD PCP - General Family Medicine 08/05/13 Strand Galvanizer Relationship Specialty Start Date End Date Aashish Guerrero MD [address] [place] [facility] [place] [address] PCP - General Family Medicine 02/08/24 Yasmin Nguyen NP [address] [address] Nurse Practitioner Neurology 07/22/24 Angel Thurman DO [address] [place] [id number] Referring Physician Neurology 07/22/24 Strand Galvanizer Relationship Specialty Start Date End Date Aashish Guerrero MD [address] [place] [address] PCP - General Family Medicine 02/08/24 Yasmin Nguyen NP [address] [place] [phone] Nurse Practitioner Neurology 07/22/24 Angel Thurman DO [address] [place] [id number] Referring Physician Neurology 07/22/24 Strand Galvanizer Relationship Specialty Start Date End Date Aashish Guerrero MD PCP - General Family Medicine 02/08/24 Yasmin Ngueyn NP Nurse Practitioner Neurology 07/22/24 Angel Thurman DO [address] [address] Referring Physician Neurology 07/22/24 Strand Galvanizer Relationship Specialty Start Date End Date Aashish Guerrero MD PCP - General Family Medicine 02/08/24 Yasmin Nguyen NP Nurse Practitioner Neurology 07/22/24 Angel Thurman DO [address] [place] [id number] Referring Physician Neurology 07/22/24 Strand Galvanizer Relationship Specialty Start Date End Date Aashish Guerrero MD PCP - General Family Medicine 02/08/24 Yasmin Nguyen NP Nurse Practitioner Neurology 07/22/24 Angel Thurman DO [address] [address] Referring Physician Neurology 07/22/24 Strand Galvanizer Relationship Specialty Start Date End Date Aashish Guerrero MD PCP - General Family Medicine 02/08/24 Yasmin Nguyen NP Nurse Practitioner Neurology 07/22/24 Angel Thurman DO [address] [place] [id number] Referring Physician Neurology 07/22/24 FOR RECORDS PERTAINING [...] BE BASED ON THE PRIMARY CLINICAL RECORDS. [facility] [employer] [facility]. provides no warranty or guarantee of the accuracy or completeness of information in this document.
--- OUTSIDE RECORDS SUMMARY | 2025-04-22 08:57 | XMS_ITS | Patient Health Record ---
Author Organization [facility] in [place] Address [address] [place] [address] Care Team Providers Care Line Helper Name Role Phone David Aguilar Primary Care Provider [phone] Allergies No Known Allergies Results Component Value Reference Range Notes US THYROID Reviewed date:04/19/2025 06:46:30 PM Interpretation: Performing Lab: Notes/Report: Source Facility: [place] [address] Ultrasound Report Signed Patient: SUMAN MORTON MR#: [id number] : 1960 Acct:[id number] Age/Sex: 64 / F ADM Date: 04/18/25 Loc: US Attending Dr: Uday Aguilar M.D. Ordering Physician: Uday Aguilar M.D. Date of Service: 04/18/25 Procedure(s): US thyroid Accession Number(s): [id number] cc: Uday Aguilar M.D. [address] [address] Patient Name: SUMAN MORTON MRN: [id number] date: 1960 Sex: F Assigned Patient Location: US Current Patient Location: US Accession/Order Number: [id number] Exam Date: 04/18/2025 15:04 Report Date: 04/18/2025 23:26 At the request of: UDAY AGUILAR MD Procedure: US thyroid US thyroid [...] 04/18/2025 11:26 PM Dictation Location: [place] [address] Electronically authenticated by: [id number] Y Date: 04/18/2025 23:26 Dictated By: Augusto Goode M.D. Signed By: 04/18/252328 DD/ 25 TD/TT: Operations Recruiter: [place] [address] Ultrasound Report Signed Patient: MENARD MR#: [id number] : 1960 Acct:[id number] Age/Sex: 64 / F ADM Date: 04/18/25 Loc: US Attending Dr: Denys Aguilar M.D. Ordering Physician: Uday Aguilar M.D. Date of Service: 04/18/25 Procedure(s): US thyroid Accession Number(s): [id number] cc: Uday Aguilar M.D. [address] [address] Patient Name: SUMAN MORTON MRN: [id number] date: 1960 Sex: F Assigned Patient Location: US Current Patient Loca tion: US Accession/Order Numb er: [id number] Exam Date: 04/18/2025 15:04 Report Date: 04/18/2025 23:26 At the request of: UDAY AGUILAR MD Procedure: US thyroid US thyroid [...] the right. No cervical lymphadenopathy is noted. U S/US thyroid IMPRESSION: TIRADS: 4 (moderatel y suspicious) Grossly stable moder ately suspicious nodule in the right thyroid lobe. This measures up to 7 mm in greatest dimension. Recommendation: Cont inued interval follow-up is recommended at years 2, 3, and 5 is recommended. Impression dictated by: Augusto Goode M.D. 04/18/2025 11:26 PM Dictation Location: [place] [address] Electronically authenticated by: [id number] Y Date: 04/18/2025 23:26 Dictated By: Augusto Goode M.D. Signed By: 04/18/252328 DD/ 25 TD/TT: Operations Recruiter: FREE T3 Reviewed date:12/04/2024 03:41:13 PM Interpretation: Performing Lab: Notes/Report: [facility] , Free T3 2.19 2.18-3.98 pg/mL Performing Lab: see note ML - The [facility] LB T4 Reviewed date:12/04/2024 03:41:13 PM Interpretation: Performing Lab: Notes/Report: [facility] , T4 Thyroxine 7.90 4.80-13.90 ug/dL Performing Lab: see note ML - The [facility] LB TSH Reviewed date:12/04/2024 03:41:13 PM Interpretation: Performing Lab: Notes/Report: [facility] , Thyroid Stimulating Hormone 0.335 0.358-3.740 uIU/mL Performing Lab: see note ML - The [facility] LB MM tomosynthesis screening B I Reviewed date:04/18/2025 08:21:53 PM Interpretation: Performing Lab: Notes/Report: Source Facility: [facility]-[address] [place] [address] [place] [address] Mammography Report Signed Patient: SUMAN MORTON MR#: [id number] : 1960 Acct:[id number] Age/Sex: 64 / F ADM Date: 04/18/25 Loc: US Attending Dr: Uday Aguilar M.D. Ordering Physician: Uday Aguilar M.D. Results: Date of Service: 04/18/25 Follow Up: Procedure(s): MM tomosynthesis screening BI Accession Number(s): [id number] cc: Uday Aguilar M.D. Patient Name: SUMAN MORTON MR#: [id number] : 1960 Exam Date: 04/18/2025 Ordering Doctor: DR UDAY AGUILAR . RADIOLOGY REPORT PROCEDURE: MM TOMOSYNTHESIS SCREENING BI COMPARISON: MM TOMOSYNTHESIS SCREENING BI, 08/20/2023. MG MAMM SCREEN 3D ROCIO CAD, 12/18/2020. MG MAMM ROCIO SCRN W CAD DIG, 09/13/2015. MAMMO ROCIO SCREEN, 01/03/2005. INDICATIONS: well adult Calculator Name NCI Breast Cancer Risk Assessment Tool 5 Year Breast Cancer Risk 2.00% Lifetime Breast Cancer Risk 8.40% Personal Breast Cancer No Personal Ovarian Cancer No Treatments None Family Cancers None LOCATION: The [facility] BREAST COMPOSITION: The breasts are almost entirely fatty. FINDINGS: RIGHT BREAST: No significant suspicious finding. LEFT BREAST: No significant suspicious finding. DIAGNOSTIC CATEGORY 1--NEGATIVE. RECOMMENDATIONS: ROUTINE MAMMOGRAM AND CLINICAL EVALUATION IN 12 MONTHS. Dictated by: Sunny Lockwood DO on 04/18/2025 at 16:11 Approved by: Sunny Lockwood DO on 04/18/2025 at 16:14 Dictated By: Sunny Lockwood D.O. Signed By: 04/18/251614 DD/ 13 TD/TT: Operations Recruiter: The [place] [id number] Mammography Report Signed Patient: MENARD MR#: [id number] : 1960 Acct:[id number] Age/Sex: 64 / F ADM Date: 04/18/25 Loc: US Attending Dr: Denys Aguilar M.D. Ordering Physician: Uday Aguilar M.D. Results: Date of Service: Follow Up: Procedure(s): MM tomosynthesis screening BI Accession Number(s): [id number] cc: Uday Aguilar M.D. Patient Name: SUMAN MORTON MR#: [id number] : 1960 Exam Date: 04/18/2025 Ordering Doctor: DR UDAY AGUILAR . RADIOLOGY REPORT PROCEDURE: MM TOMOSYNTHESIS SCREENING BI COMPARISON: MM TOMOSYNTHESIS SCREENING BI, 08/20/2023. MG MAMM SCREEN 3D ROCIO CAD, 12/18/2020. MG MAMM ROCIO SCRN W CAD DIG, 09/13/2015. MAMMO ROCIO SCREEN, 01/03/2005. INDICATIONS: well adult Calculator Name NCI Breast Cancer Risk Assessment Tool 5 Year Breast Cancer Risk 2.00% Lifetime Breast Canc er Risk 8.40% Personal Breast Cancer No Personal Ovarian Can cer No Treatments None Family Cancers None LOCATION: [facility] BREAST COMPOSITION: The breasts are almost entirely fatty. FINDINGS: RIGHT BREAST: No significant suspicious finding. LEFT BREAST: No significant suspicious finding. DIAGNOSTIC CATEGORY 1--NEGATIVE. RECOMMENDATIONS: ROUTINE MAMMOGRAM AN D CLINICAL EVALUATION IN 12 MONTHS. Dictated by: Sunny Lockwood DO on 04/18/2025 at 16:11 Approved by: Sunny Lockwood DO on 04/18/2025 at 16:14 Dictated By: Loyd Lockwood D.O. Signed By: 04/18/251614 DD/ 13 TD/TT: Operations Recruiter: Reason For Referral No Information Medications Medication SIG (Take, Route, Frequency, Duration) Notes Start Date End Date Status Fosamax 70 MG 1 tablet 30 minutes before the first food, beverage or medicine of the day with plain water Orally for 30 day(s) 04/05/2025 Active Liothyronine Sodium 5 MCG 1 tablet on an empty stomach Orally Once a day for 90 days Active Levothyroxine Sodium 100 MCG TAKE 1 TABL ET BY MOUTH EVERY DAY for 30 Active Protonix 40 MG 1 tablet Orally Ever y Evening for 30 day(s) 09/10/2023 Active Biotin 38966 MCG 1 tablet Orally bid Active Alendronate Sodium 70 MG TAKE 1 TABLET B Y MOUTH ONCE A WEEK 30 MINUTES BEFORE FIRST FOOD/DRINK/MED OF THE DAY WITH WATER for 30 days Active Keppra XR 500 MG 6 tablet Orally at bedtime Active Cyclobenzaprine HCl 10 MG TAKE 1 - 2 TAB LETS BY MOUTH EVERYDAY AT BEDTIME for 30 days Active Simvastatin 20 MG TAKE 1 TABLET BY SHAYY TH EVERY NIGHT for 90 Active Social History Tobacco Use: Social History Observation Description Date Details (start date - stop date) Never Smoker NA - NA Tobacco Use/Smoking Question Answer Notes Patient is a nonsmoker Alcohol Screen (Audit-C) Question Answer Notes Did you have a drink contain ing alcohol in the past year? Yes How often did you have 6 or more drinks on one occasion in the past year? Never (0 point) How many drinks did you have on a typical day when you were drinking in the past year? 1 or 2 drinks (0 point) How often did you have a dri nk containing alcohol in the past year? Less than monthly (1 point) Points 1 Interpretation Negative AUDIT-C (Standard) Question Answer Notes Did you have a drink containing alcohol in the p ast year? 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) Active confirmed Problem Insomnia (311372522) Insomnia, unspecified (G47.00) Active confirmed Problem Dizziness and giddiness (138900625) Dizziness and giddiness (R42) Active confirmed Problem Migraine variant with headache (disorder) (325900529) Migraine headache (G43.909) Active confirmed Problem Thyroid nodule (986115790) Thyroid nodule (E04.1) Active confirmed Problem Well adult (569885990) Well adult (Z00.00) Active confirmed Problem Seizure disorder (788278930) Seizure disorder (G40.909) Active confirmed Problem 48088671 Pure hypercholesterol emia, unspecified (E78.00) Active confirmed Problem Screening mammography (72604223) Screening mammogram for breast cancer (Z12.31) Active confirmed Vital Signs Blood pressure diastolic 62 mm Hg 04/05/2025 Height 66 in 04/05/2025 Blood pressure systolic 102 mm Hg 04/05/2025 Weight 155.8 lbs 04/05/2025 BMI 25.14 kg/m2 04/05/2025 Encounters Encounter Location Date Provider Diagnosis [place] [address] [place] [address] 04/18/2025 [place] [id number] [place] [address] 04/19/2025 [facility] [address] [place] [address] 08/02/2024 [facility] [address] [place] [address] 10/13/2024 [facility] [address] [place] [address] 10/27/2024 [facility] [address] [place] [address] 04/13/2025 [facility] [address] [place] [address] 04/05/2025 David sheri Well adult Z00.00 an d Thyroid nodule E04.1 Assessments Encounter Date Diagnosis (ICD Code) Assessment Notes Treatment Notes Treatment Clinical Notes Section Notes 04/05/2025 Well adult (ICD-10 - Z00.00) disucssed vascular - mnay need that for varicose veins 04/05/2025 Thyroid nodule (ICD-10 - E04.1) Plan Of Treatment Pending Test Test Name Order Date HEMOGLOBIN A1C (GLYCO) 04/05/2025 IRON, TOTAL 04/05/2025 LIPID PANEL (CHOL/TRIG/HDL/LDL) 04/05/20 25 T3 FREE, T4 FREE and TSH 09/14/2023 US Thyroid 01/27/2024 DEXA - AXIAL SKELETON (HIPS,PELVIS,SPINE ) 07/22/2023 STOOL OCCULT BLOOD 04/05/2025 C. DIFF PCR 05/21/2023 CBC AUTO DIFF 01/11/2023 GI PANEL (PCR) 05/19/2023 GLYCOHEMOGLOBIN A1C 01/11/2023 LIPID PROFILE 01/11/2023 MAGNESIUM 01/11/2023 MAGNESIUM 04/05/2025 OVA AND PARASITE EXAMINATION 05/19/2023 OVA AND PARASITE EXAMINATION 05/21/2023 PROF 14(COMP METB) 01/11/2023 STOOL CULTURE 05/21/2023 THYROID PROFILE WITH TSH 01/11/2023 MG MAMM SCREEN 3D ROCIO CAD 08/11/2023 XR DEXA BONE DENSITY 01/11/2023 THYROID PANEL (T4/TSH/FREE T3) 5 THYROID PANEL (T4/TSH/FREE T3) 4 MM screening mammo BI 04/05/2025 US soft tissue head and neck 01/27/2024 CMP (COMP MET O[place]) w/eGFR CKD-EPI 2024 CBC WITH DIFF 04/05/2025 Insurance Providers Payer Name Payer Address Payer Phone Subscriber Number Group Number Insured Name Patient Relationship to Insured Coverage Start Date Coverage End Date MMO [employer] P[employer] [address] [address] [place] [address] [id number] Suman Morton Self - patient is the insured Medical (General) History Medical History History ICD Code Seizure disorder G40.909 Migraine headache G43.909 Dizziness and giddiness R42 Insomnia, unspecified G47.00 Memory loss 780.93 Hair loss 704.00 Osteoporosis M81.0 Surgical History Surgery Date(Month/Year) hysterectomy ORIF wrist Hospitalization History Reason Date(Month/Year) see above
[2025-04-22 10:17] LABS: Iron 121.0 ug/dL (50.0-170.0)
[2025-04-22 10:31] LABS: Alanine Aminotransferase 25 U/L (14-59); Albumin Globulin Ratio 1.0; Albumin Level 3.3 g/dL (3.4-5.0); Alkaline Phosphatase 82 U/L (46-116); Anion Gap 10.1; Aspartate Amino Transferase 21 U/L (15-37); Blood Urea Nitrogen 15.0 mg/dL (7.0-18.0); Calcium 8.7 mg/dL (8.5-10.1); Carbon Dioxide 29.8 mmol/L (21.0-32.0); Chloride 106 mmol/L (98-107); Cholesterol 190 mg/dL (<=200); Estimated GFR (African America >60 (>=60 mL/min/1.73m^2); Estimated GFR (Non-African Ame >60 (>=60 mL/min/1.73m^2); Free T3 2.38 pg/mL (2.18-3.98); Globulin 3.3 g/dL; Glucose 84 mg/dL (74-106); HDL Cholesterol 84 mg/dL (40-60); Magnesium 2.0 mg/dL (1.8-2.4); Potassium 3.9 mmol/L (3.5-5.1); Sodium 142 mmol/L (136-145); Thyroid Stimulating Hormone 0.738 uIU/mL (0.358-3.740); Total Protein 6.6 g/dL (6.4-8.2); Triglycerides 46 mg/dL (<=150); VLDL CHOLESTEROL 9.2 mg/dL
== END 2025-04-22 08:54 | disposition home or self-care (01) ==
LOC: LAB 08:53
PROVIDERS: PCP Family Medicine; Visit Provider Family Medicine
DX: Z00.00 Encounter for general adult medical examination without abnormal findings (principal)
CPT/HCPCS: 36415; 80053; 80061; 83036; 83540; 83735; 84436; 84443; 84481

== ENCOUNTER 2025-07-24 17:55 | Outpatient (OUT) | payer OTHER, SELFPAY ==
--- OUTSIDE RECORDS SUMMARY | 2025-07-24 18:00 | XMS_ITS | CCD ---
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 Name Role Phone PHYSICIAN, DEFAULT Unavailable Unavailable PHYSICIAN, DEFAULT Unavailable Unavailable LAUREN, DR ZENDEJAS Admitting Unavailable HOANGY, DR ZENDEJAS Attending Unavailable HOY, DR ZENDEJAS Consulting Unavailable HOANGY, DR ZENDEJAS Primary Care Unavailable HOY, DR ZENDEJAS Admitting Unavailable HOY, DR ZENDEJAS Attending Unavailable HOANGY, DR ZENDEJAS Consulting Unavailable HOANGY, DR ZENDEJAS Primary Care Unavailable ZIEBER, DR BHARATHI Jeff Consulting Unavailable LAUREN, DR ZENDEJAS Admitting Unavailable HOY, DR ZENDEJAS Attending Unavailable HOY, DR ZENDEJAS Consulting Unavailable HOY, DR ZENDEJAS Primary Care Unavailable TAMPA, DR EFRAIN Rizzo Consulting Unavailable LAUREN, DR ZENDEJAS Admitting Unavailable LAUREN, DR ZENDEJAS Attending Unavailable LAUREN, DR ZENDEJAS Primary Care Unavailable Aashish Guerrero MD Primary Care Provider AASHISH GUERRERO Primary Care Unavailable LOUIE GERMAIN Referring Unavailable AASHISH GUERRERO Primary Care Unavailable LOUIE GERMAIN Attending Unavailable Aashish Guerrero MD Primary Care Provider Aashish Guerrero MD Primary Care Provider Yasmin Nguyen NP Unavailable Angel Thurman DO Unavailable Aashish Guerrero MD Primary Care Provider Yasmin Nguyen NP Unavailable Yasmin Nguyen NP Unavailable Olman DAWSON Christopher Unavailable NICK DONATO Attending Unavailable LEANN ALVAREZ Attending Unavailable YASMIN NGUYEN Attending Unavailable Medications Current Medications MedicationDrug Class(es)DatesSig (Normalized)Sig (Original)acetaminophen 325 mg oral tablet (9 sources)acetaminophen (Tylenol) 325 MG tablet Activealendronic acid 70 mg oral tablet (9 sources)BisphosphonateStart: 31-45-4700jmgbecbitjs (Fosamax) 70 MG tablet 11/16/2023 ActivebusPIRone (3 sources)BUSPIRONE HCL (BUSPIRONE ORAL) Indications: H/O: knee surgery Take by mouth. ActiveBUSPIRONE HCL (BUSPIRONE ORAL) Indications: H/O: knee surgery Take by mouth. 0 ActiveComment on above:Take by mouth.cyclobenzaprine hydrochloride 10 mg oral tablet (12 sources)Muscle Relaxantcyclobenzaprine (Flexeril) 10 MG tablet ActiveComment on above:Take 10-20 mg by mouth daily at bedtime.docusate sodium 100 mg oral capsule (3 sources)Start: 55-89-2555fkqv 1 capsule by mouth every twelve hours as needed docusate sodium (COLACE) 100 mg capsule Take 1 capsule by mouth twice daily as needed for Constipation. 60 capsule 3 09/12/2013 ActiveComment on above:Take 1 capsule by mouth twice daily as needed for Constipation.ibuprofen 600 mg oral tablet (3 sources)Nonsteroidal Anti-inflammatory DrugStart: 87-64-9554oxhl 1 tablet by mouth every eight hours as neededibuprofen 600 mg tablet Take 1 tablet by mouth every 8 hours as needed for Pain. 60 tablet 3 09/12/2013 ActiveComment on above: Take 1 tablet by mouth every 8 hours as needed for Pain.latanoprost 0.05 mg/ml ophthalmic solution (9 sources)Prostaglandin AnalogStart: 01-16-8682ofleeddplqz (Xalatan) 0.005 % ophthalmic solution 01/05/2023 ActiveStart: 42-81-7382ygju 1 drop(s) into the eye(s) once daily at bedtimelatanoprost (Xalatan) 0.005 % ophthalmic solution INSTILL 1 DROP IN BOTH EYES EVERY DAY AT BEDTIME 01/05/2023 Caxfdv84 hr levETIRAcetam 500 mg extended release oral tablet (12 sources)Start: 20-20-3625sbso 5 tablets by mouth once dailylevETIRAcetam XR (Keppra XR) 500 MG 24 hr tablet Indications: Seizure disorder (HCC) Take 5 tabletsby mouth once daily. Do not crush, chew, or split. 150 tablet 6 12/06/2024 ActiveStart: 03-79-5069hkwr 5 tablets by mouth once daily levETIRAcetam XR (Keppra XR) 500 MG 24 hr tablet Indications: Seizure disorder (CMS/HCC) Take 5 tablets by mouth once daily. Do not crush, chew, or split. 150 tablet 6 02/09/2024 ActivelevETIRAcetam (KEPPRA) 500 mg tablet Take 3,000 mg by mouth daily at bedtime. ActiveComment on above:Take 3,000 mg by mouth daily at bedtime.levothyroxine sodium 0.1 mg oral tablet (12 sources)l-Thyroxinetake 1 tablet by mouth once dailylevothyroxine (Synthroid, Levoxyl) 100 MCG tablet Take 100 mcg by mouth Daily ActiveComment on above:Take 100 mcg by mouth daily before breakfast.liothyronine sodium 0.005 mg oral tablet (9 sources)l-TriiodothyronineStart: 72-95-6857hejutpzeqwqg (Cytomel) 5 MCG tablet 1 (one) time each day at the same time 01/27/2024 Activemagnesium gluconate 500 mg oral tablet (8 sources)take 1 tablet by mouth in the morningmagnesium, as gluconate, (Magonate) 500 (27 Mg) MG tablet Take 27 mg by mouth in the morning and 27mg before bedtime. ActivepredniSONE 10 mg oral tablet (3 sources)Start: 36-83-8467qwcabmUZKE (DELTASONE) 10 mg tablet Indications: Closed fracture of right patella, unspecified fracture morphology, initial encounter TAKE ONE TABLET TWICE DAILY TIMES 7 DAYS THAN ONE TABLET DAILY TIMES 7 DAYS. 21 tablet 01/22/2017 ActiveComment on above:TAKE ONE TABLET TWICE DAILY TIMES 7 DAYS THAN ONE TABLET DAILY TIMES 7 DAYS.simvastatin 20 mg oral tablet (9 sources)HMG-CoA Reductase InhibitorStart: 22-99-6354ugbr 1 tablet by mouth at bedtimesimvastatin (Zocor) 20 MG tablet Take 20 mg by mouth at bedtime 01/19/2023 Ivvaok56 hr timolol 5 mg/ml ophthalmic solution (9 sources)beta-Adrenergic BlockerStart: 86-63-2549awzjgcg (Timoptic) 0.5 % ophthalmic solution 01/07/2023 ActiveStart: 07-27-3326atuw 1 drop(s) into the eye(s) once daily in the morningtimolol (Timoptic) 0.5 % ophthalmic solution INSTILL 1 DROP IN BOTH EYES EVERY MORNING 01/07/2023 Active Problems Active Problems Problem ClassificationProblemDateDocumented DateEpisodic/ChronicComplication of device; implant or graft (2 sources)Pain; Translations: [Pain due to internal orthopedic prosthetic devices, implants and grafts, initial encounter]EpisodicEpilepsy; convulsions (13 sources)Seizure disorder; Translations: [Epilepsy, unspecified, not intractable, without status epilepticus]Onset: 492337-52-3490Jnywkdc Headache; including migraine (13 sources)Migraine; Translations: [Migraine, unspecified, not intractable, without status migrainosus]Onset: 343548-29-5784QenqahyWsgcwznxdsu deficiencies (9 sources)Vitamin D deficiency; Translations: [Vitamin D deficiency, unspecified]Onset: 443035-47-1983JdkpzwbDwlak and unspecified benign neoplasm (2 sources)Melanocytic nevus of trunk; Translations: [Melanocytic nevi of trunk] 46-49-6642ZpxhdhocJlfca circulatory disease (2 sources)Spider nevus; Translations: [Nevus, non-neoplastic]17-69-8470Kznuxyyf Other lower respiratory disease (4 sources)Pleurodynia; Translations: [PLEURODYNIA]Onset: 71-83-2846Lakksicb Other non-traumatic joint disorders (2 sources)Pain in right knee; Translations: [Pain in joint, lower leg]Onset: 52-84-2834YyrwrmljXdwpe skin disorders (2 sources)Seborrheic keratosis; Translations: [Other seborrheic keratosis] 26-25-3458FpqasxiuZwivv skin disorders (2 sources)Inflamed seborrheic keratosis; Translations: [Inflamed seborrheic keratosis]51-21-6018JxhqnyocGyarw skin disorders (2 sources)Lentiginosis; Translations: [Other melanin hyperpigmentation] 63-07-8191BlfpusyxOlaez skin disorders (2 sources)Eruption; Translations: [Rash and other nonspecific skin eruption] 84-30-9412PdzeokrsTafvzwid codes; unclassified (1 source)Pain, unspecified; Translations: [Pain]Onset: 38-68-1268Znunweeo Past or Other Problems Problem ClassificationProblemDateDocumented DateEpisodic/ChronicConditions associated with dizziness or vertigo (20 sources)Vertigo of central origin; Translations: [Vertigo of central origin] Onset: 06-05-2023 Resolved: 356264-38-8973KfwuxqfnIowazkcs; including migraine (9 sources)Headache; Translations: [Headache]Onset: 403164-48-8250Vwhpxdcx Malaise and fatigue (9 sources)Malaise; Translations: [Other malaise]Onset: EpisodicOther aftercare (9 sources)Patient encounter status; Translations: [Encounter for therapeutic drug level monitoring]Onset: 605916-32-9649UttlpuesChixv nervous system disorders (9 sources)Impairment of balance; Translations: [Other abnormalities of gait and mobility]Onset: 507516-95-8098EahpidtvWmxfv nervous system disorders (9 sources)Paresthesia; Translations: [Paresthesia of skin]Onset: 02-05-2024 02-87-4048CohnjfwgYkzsy non-traumatic joint disorders (4 sources)Pain in left knee; Translations: [PAIN IN LEFT KNEE]Onset: 09-11-2021 EpisodicOther non-traumatic joint disorders (1 source)Effusion, left knee; Translations: [EFFUSION LEFT KNEE]Onset: 47-08-1512QgunnutaDmoim skin disorders (9 sources)Loss of hair; Translations: [Nonscarring hair loss, unspecified] Onset: 856132-18-7283WnwbymvhAslrybrz codes; unclassified (9 sources)Sleep deprivation; Translations: [Sleep deprivation]Onset: 02-05-2024 02-26-8281RrvgbcaeOnmvvvzq codes; unclassified (9 sources)Amnesia; Translations: [Other amnesia]Onset: EpisodicResidual codes; unclassified (9 sources)Insomnia; Translations: [Insomnia, unspecified]Onset: 02-05-2024 94-85-5466KkavxxjqLefsxafslyl; intervertebral disc disorders; other back problems (9 sources)Neck pain; Translations: [Cervicalgia]Onset: Episodic Results Test NameValueInterpretationReference RangeFacilityCNOVon 59-93-5726JEQSKtpuib Visit (LOORRM) TIGIST MORTON ([id number]) 1960 F Date Time Provider Department 11/21/22 [...] a syncopal episode on 2015 while in [place]. This resulted in a pelvic fracture. She [...] healed patellar fracture. 2 K wires with razkpw-gj-bwonf cerclage wire. The K wires appear to [...] stiffness, perioperative medical problems, (more content not included)...Normal [facility] 74-38-1233LVPSMikpwvmbq (LOORRM) TIGIST MORTON ([id number]) 1960 F Date Time Provider Department 11/21/22 LOUIE GERMAIN During your visit today, we recorded the following information about you: Gui Leal 11/21/2022 3:44 PM Signed Spoke to patient and scheduled PACC for upcoming surgery of right knee with Dr. Germain of 12/10/22. Allergies As of Date: 11/21/2022 (No Known Allergies) Date Reviewed: 01/22/2017 Reviewed by: Lalit Corea [facility] - Fully Assessed Reason for Visit: Surgical [...] (None) Encounter Status:Closed by GUI LEAL on 11/21/22NoOur Lady of Mercy HospitalXR KNEE 4V AP/PA BOTH+LAT/CUCA RTon 59-60-6991AX KNEE 4V AP/PA BOTH+LAT/CUCA RT* * *Final Report* * * DATE OF [...] 4V AP/PA BOTH+LAT/CUCA RT COMPARISON: 2016 RESULT: Smaiof-fp-dryht wire fixation of the patella. K wires extend beyond the superior and inferior pole of the patella. Hardware is intact. There is no fracture seen. Patella baja. 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 Osteopenia. No other significant abnormality. IMPRESSION: HEALED PATELLAR FRACTURE STATUS POST FIXATION. ONE OF THE K WIRES HAS PROBABLY PULLED OUT SLIGHTLY COMPARED TO THE PRIOR STUDY. PATELLA BAJA. OSTEOARTHRITIS, SIMILAR TO PRIOR Spooler Operator Automatic: PSCB Transcribe Date/Time: Nov 21 2022 4:09P Dictated by : JUAN CARLOS GRACIA MD This examination was interpreted and the report reviewed and electronically signed by: JUAN CARLOS GRACIA MD on Nov 21 2022 4:12PM EST [id number] HospitalXR Knee - right 4 Viewson 83-28-5138GNBCWDYVAZ: HEALED PATELLAR FRACTURE STATUS POST FIXATION. ONE OF THE K WIRES HAS PROBABLY PULLED OUT SLIGHTLY COMPARED TO THE PRIOR STUDY. PATELLA BAJA. OSTEOARTHRITIS, SIMILAR TO PRIOR Spooler Operator Automatic: PSCB Transcribe Date/Time: Nov 21 2022 4:09P Dictated by : JUAN CARLOS GRACIA MD This examination was interpreted and the report reviewed and electronically signed by: JUAN CARLOS GRACIA MD on Nov 21 2022 4:12PM [facility] DIVISION OF RADIOLOGY* * *Final Report* * * DATE OF [...] 4V AP/PA BOTH+LAT/CUCA RT COMPARISON: 2016 RESULT: Wtvcnj-tr-nugqq wire fixation of the patella. K wires extend beyond the superior and inferior pole of the patella. Hardware is intact. There is no fracture seen. Patella baja. 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 Osteopenia. No other significant abnormality. [facility] * * *Final Report* * [...] 4V AP/PA BOTH+LAT/CUCA RT COMPARISON: 2016 RESULT: Ritmvb-sv-tgrtb wire fixation of the patella. K wires extend beyond the superior and inferior pole of the patella. Hardware is intact. There is no fracture seen. Patella baja. 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 Osteopenia. No other significant abnormality. IMPRESSION IMPRESSION: HEALED PATELLAR FRACTURE STATUS POST FIXATION. ONE OF THE K WIRES HAS PROBABLY PULLED OUT SLIGHTLY COMPARED TO THE PRIOR STUDY. PATELLA BAJA. OSTEOARTHRITIS, SIMILAR TO PRIOR Spooler Operator Automatic: LADONNA Transcribe Date/Time: Nov 21 2022 4:09P Dictated by : JUAN CARLOS GRACIA MD This examination was interpreted and the report reviewed and electronically signed by: JUAN CARLOS GRACIA MD on Nov 21 2022 4:12PM EST [facility] HospitalRadiology Study observation (narrative)[facility]XR Knee - right 4 ViewsOrdered By: Ccf Provider on 09-17-8274Rwjpvkgcc ClinicCNPNon 08-40-1479AURUHhoanydkl (4CQ) TIGIST MORTON ([id number]) 1960 F Date Time Provider Department 11/18/22 [...] get a hold of the doctor in [facility] to ask for records from when she was hospitalized in 07/17/[address] Germain office could try calling them to see if they could get the records? Patient wondering if she has to cancel appt if no records are received before appt? Please advise patient. [facility] Phone- [phone] Fax- [phone] Patient has been identified by name and birthdate. Duration of symptoms: N/A Person calling: self Call patient at: at home [phone] (home) [phone] (work) [phone] (cell) Was an appointment scheduled: No Closing statement: Results or non-symptom based questions: Thank you for calling [facility], your call will be returned within [...] Date Reviewed: 01/22/2017 Reviewed by: Lalit Gonzalez) [facility] - Fully Assessed Reason for Visit: Release [...] (None) Encounter Status:Closed by RHIANNON PRUETT on 11/18/22NoOur Lady of Mercy HospitalSuperficial Wound Cultureon 30-20-2104Fixghgwdann Wound CultureResult Tab Codes 03/13/22 LMP EXPERIENCE DESIGN DIRECTOR PM ORGANISM: Staphylococcus aureus (O:STAAUR) Quantity of Growth Moderate Growth Aerobic JANETH Charge (PC45) SUSCEPTIBILITY ORGANISM: O:STAAUR ANTIBIOTIC INTERPRETATION JANETH Amoxacillin/K Clavulanate S <4/2 Ampicillin/Sulbactam S <8/4 Azithromycin S <2 Cefazolin S <8 Ceftaroline S <0.5 Ceftriaxone S <8 Ciprofloxacin S <1 Clindamycin S <0.5 Daptomycin S <1 Erythromycin S <0.25 Levofloxacin S <1 Linezolid S <2 Meropenem S <4 Oxacillin S <0.25 Penicillin S <0.03 Piperacillin/Tazobactam S <4 Rifampin S <1 Tetracycline S <4 Trimethoprim/Sulfamethoxazole S <0.5/9.5 Vancomycin S 1 S = [...] RESISTANT TO ALL B-LACTAM DRUGS. PERFORMED BY: [place] [address] PATHOLOGIST SHANK BREAKER RAMIN BRIDGES M.D.[facility] Municipal HospitalComment on above: Performed By: #### CUSUP #### [place] [address] USAINSULINon 29-16-4029Bhcrqil3.1 uIU/mLNormal2.6-24.9The [facility] FoundationComment on above:Performed By: #### INSULIN #### [facility] [address] [place] [address] Dr. Ludmila Shelton AUTO DIFFon 37-10-2860SNFV #0.0 103/ulNormal0.0-0.1The [facility] FoundationComment on above:Performed By: #### CBC #### [facility] [address] [place] [address] Dr. Ludmila Rogerssophils/100 WBC (Bld)0.3 %Normal0.2-2.0[facility] Comment on above:Performed By: #### CBC #### [facility] [address] [address] [address] Ludmila Barros #0.1 103/ulNormal0.0-0.7The [facility] FoundationComment on above: Performed By: #### CBC #### [facility] [address] [place] [address] Dr. Ludmila Moniqueosinophils/100 WBC (Bld)1.3 %Normal0.9-7.0[facility] Comment on above:Performed By: #### CBC #### [facility] [address] [place] [address] Dr. Ludmila Moniquerythrocyte distribution width (RBC) [Ratio]13.2 %Xjrgcw94.0-15.0 The [facility] FoundationComment on above:Performed By: #### CBC #### [facility] [address] [place] [address] Dr. Ludmila FarooqHematocrit (Bld) [Volume fraction]41.7 %Zlpeta04.0-48.0The [facility] FoundationComment on above:Performed By: #### CBC #### [facility] [address] [place] [address] Dr. Ludmila FarooqHemoglobin (Bld) [Mass/Vol]13.5 g/hRZgnfcy01.0-16.0The [facility] FoundationComment on above:Performed By: #### CBC #### [facility] [address] [place] [address] Dr. Ludmila Gonzalez #0.01 10e3/ulNormal0.00-0.03The [facility] FoundationComment on above:Performed By: #### CBC #### [facility] [address] [place] [address] Dr. Ludmila Gonzalez %0.3 %Normal0.0-0.5The [facility]huja Medical Centerment on above: Performed By: #### CBC #### [facility] [address] [place] [address] Dr. Lumdila NavarroMPH #1.6 103/ulNormal1.2-3.8The [facility] FoundationComment on above:Performed By: #### CBC #### [facility] [address] [place] [address] Dr. Ludmila Navarromphocytes/100 WBC (Bld)40.7 %Soccmn09.5-60.0The [facility]ja Medical Centerment on above:Performed By: #### CBC #### [facility] [address] [place] [address] Dr. Ludmila RamiresUAL DIFF REQNONormalThe [facility] FoundationComment on above: Performed By: #### CBC #### [facility] [address] [place] [address] Dr. Ludmila Cast (RBC) [Entitic mass]30.8 afTfhcbv04.7-34.0The [facility] FoundationComment on above:Performed By: #### CBC #### [facility] [address] [place] [address] Dr. Ludmila Cast (RBC) [Mass/Vol]32.4 g/pLOniqub29.9-35.2The [facility] FoundationComment on above:Performed By: #### CBC #### [facility] [address] [place] [address] Dr. Ludmila Cast (RBC) [Entitic vol]95.2 xTOpjxlj20.0-99.0The [facility] FoundationComment on above:Performed By: #### CBC #### [facility] [address] [place] [address] Dr. Ludmila Ham #0.3 103/ulNormal0.3-0.8The [facility] FoundationComment on above:Performed By: #### CBC #### [facility] [address] [place] [address] Dr. Ludmila Mcclureocytes/100 WBC (Bld)7.3 %Normal1.7-12.0[facility] Comment on above:Performed By: #### CBC #### [facility] [address] [place] [address] Dr. Ludmila Dumont #2.0 103/ulNormal1.4-6.5The [facility] FoundationComment on above:Performed By: #### CBC #### [facility] [address] [address] [address] Ludmila Ponceutrophils/100 WBC (Bld)50.1 %Sqqdwt74.0-75.0The [facility] on above:Performed By: #### CBC #### [facility] [address] [address] [address] Ludmila Mensahlet mean volume (Bld) [Entitic vol]10.5 fLNormal9.5-13.5The [facility] on above:Performed By: #### CBC #### [facility] [address] [place] [address] Dr. Ludmila FarooqPLT236 103/cyEqanas511-664Prq [facility] on above: Performed By: #### CBC #### [facility] [address] [place] [address] Dr. Ludmila FarooqRBC4.38 106/ulNormal4.20-5.40The [facility] on above:Performed By: #### CBC #### [facility] [address] [place] [address] Dr. Ludmila FarooqWBC4.0 103/ulNormal4.0-11.0The [facility] on above: Performed By: #### CBC #### [facility] [address] [place] [address] Dr. Ludmlia Parada THYROXINE INDEX T7on 55-82-8418NBA3.28Ipjfea9.30-4.50The [facility] on above:Performed By: #### CMP, T7, LIPID, TSH #### [facility] [address] [place] [address] Dr. Ludmila FarooqT3U37.0 %Ftaeix60.0-39.0The [facility] on above: Performed By: #### CMP, T7, LIPID, TSH #### [facility] [address] [place] [address] Dr. Ludmila FarooqT4 [Mass/Vol]8.70 ug/dLNormal4.80-13.90[facility] Comment on above:Performed By: #### CMP, T7, LIPID, TSH #### [facility] [address] [place] [address] Dr. Ludmila FarooqGLYCOHEMOGLOBIN A1Con 91-03-7040EWS RECOMMENDATIONSEE BELOWGreene Memorial HospitalComment on above:Result Comment: ADA RECOMMENDED LIMIT 4.0 - 6.0 ADA THERAPEUTIC TARGET < 7.0 ACTION SUGGESTED > 7.0Performed By: #### A1C #### [facility] [address] [place] [address] Dr. Ludmila FarooqGlucose [Mass/Vol]111 mg/dLBlanchard Valley Health SystemComment on above:Performed By: #### A1C #### [facility] [address] [place] [address] Dr. Ludmila FarooqHbA1c (Bld) [Mass fraction]5.5 %Normal4.5-6.2The [facility] FoundationComment on above:Performed By: #### A1C #### [facility] [address] [place] [address] Dr. Ludmila FarooqIROEliana 35-13-9985Dtcv [Mass/Vol]110.0 ug/qIYcfytj93.0-170.0The [facility] FoundationComment on above:Performed By: #### IRON #### [facility] [address] [place] [address] Dr. Ludmila FarooqLIPID PROFILEon 55-34-8179DKVV-HDL RATIO NORMSEE [facility] HospitalComment on above:Result Comment: 3.3 - 4.4 LOW RISK 4.4 - 7.1 AVERAGE RISK 7.1 - 11.0 MODERATE RISK >11.0 HIGH RISKPerformed By: #### CMP, T7, LIPID, TSH #### [facility] [address] [place] [address] Dr. Ludmila FarooqCholesterol [Mass/Vol]267 mg/dLCritically high<=200The [facility] FoundationComment on above:Performed By: #### CMP, T7, LIPID, TSH #### [facility] [address] [address] [address] Ludmila Sappesterol in HDL [Mass/Vol]84 mg/dLCritically szjv96-13Qcf [facility] FoundationComment on above:Performed By: #### CMP, T7, LIPID, TSH #### [facility] [address] [address] [address] Ludmila Sappesterol in LDL [Mass/Vol]172.0 mg/dLNoUC Medical CenterComment on above:Performed By: #### CMP, T7, LIPID, TSH #### [facility] [address] [address] [address] Ludmila Acuna.total/Cholesterol in HDL [Mass ratio]3.2 {ratio} NormalThe [facility] Clinic FoundationComment on above:Performed By: #### CMP, T7, LIPID, TSH #### [facility] [address] [place] [address] Dr. Ludmila Michelle NORMAL> or = 60 mg/dl - LOW CARDIOVASCULAR RISK <40 mg/dl - HIGH CARDIOVASCULAR RISKNoUC Medical CenterComment on above:Performed By: #### CMP, T7, LIPID, TSH #### [facility] [address] [address] [address] Ludmila Nunez CALC NORMALSEE BELOWBlanchard Valley Health SystemComment on above:Result Comment: <100 mg/dl OPTIMAL 100 - 129 mg/dl NEAR OR ABOVE OPTIMAL 130 - 159 mg/dl BORDERLINE HIGH 160 - 189 mg/dl HIGH >190 mg/dl VERY HIGH Performed By: #### CMP, T7, LIPID, TSH #### [facility] [address] [address] [address] Ludmila FarooqTriglyceride [Mass/Vol]55 mg/dLNormal<=150[facility] Comment on above:Performed By: #### CMP, T7, LIPID, TSH #### [facility] [address] [address] [address] Ludmila De La TorreLDL CALC11.0 mg/dLNoUC Medical CenterComment on above: Performed By: #### CMP, T7, LIPID, TSH #### [facility] [address] [place] [address] Dr. Ludmila Vargas BLD IMMUNO SCREENon 99-67-8376TFNNQM BLOODNegativeNormal NEGATIVEThe [facility] on above:Performed By: #### OBSCRN #### [facility] [address] [place] [address] Dr. Ludmila Wallace 14(COMP METB)on 84-96-4171Thyybqo [Mass/Vol]3.4 g/dLNormal 3.4-5.0The [facility] on above:Performed By: #### CMP, T7, LIPID, TSH #### [facility] [address] [place] [address] Dr. Ludmila FarooqAlbumin/Globulin [Mass ratio]1.0 {ratio}NormalThe [facility] on above:Performed By: #### CMP, T7, LIPID, TSH #### [facility] [address] [place] [address] Dr. Ludmila Akins [Catalytic activity/Vol]93 U/JYdxfly62-572Gsm [facility] on above:Performed By: #### CMP, T7, LIPID, TSH #### [facility] [address] [place] [address] Dr. Ludmila Luz [Catalytic activity/Vol]22 U/INhujfo83-47Dbb [facility] on above:Performed By: #### CMP, T7, LIPID, TSH #### [facility] [address] [place] [address] Dr. Ludmila Hagan gap [Moles/Vol]9.1 mmol/LNormalThe [facility] on above:Performed By: #### CMP, T7, LIPID, TSH #### [facility] [address] [place] [address] Dr. Ludmila Boggs [Catalytic activity/Vol]17 U/LQrbzep64-81Qnw [facility] on above:Performed By: #### CMP, T7, LIPID, TSH #### [facility] [address] [place] [address] Dr. Yilan ChangBilirubin [Mass/Vol]0.7 mg/dLNormal0.2-1.0The [facility] Comment on above:Performed By: #### CMP, T7, LIPID, TSH #### [facility] [address] [address] [address] Ludmila FarooqCalcium [Mass/Vol]8.7 mg/dLNormal8.5-10.1The [facility] Comment on above:Performed By: #### CMP, T7, LIPID, TSH #### [facility] [address] [place] [address] Dr. Ludmila FarooqChloride [Moles/Vol]103 mmol/PLfjmkf85-800WifMercy Health Def[facility] Hospital Comment on above:Performed By: #### CMP, T7, LIPID, TSH #### [facility] [address] [place] [address] Dr. Ludmila FarooqCO2 [Moles/Vol]31.7 mmol/BNttldg31.0-32.0The [facility] Comment on above:Performed By: #### CMP, T7, LIPID, TSH #### [facility] [address] [place] [address] Dr. Ludmila FarooqCreatinine [Mass/Vol]0.82 mg/dLNormal0.55-1.02The [facility] Foundation[facility] on above:Performed By: #### CMP, T7, LIPID, TSH #### [facility] [address] [place] [address] Dr. Ludmila MoniqueGFR-AF GREEK>60Normal>=60The [facility] FoundationComment on above:Performed By: #### CMP, T7, LIPID, TSH #### [facility] [address] [place] [address] Dr. Ludmila MoniqueGFR-NON AF GREEK>60Normal>=60The [facility] FoundationComment on above:Performed By: #### CMP, T7, LIPID, TSH #### [facility] [address] [place] [address] Dr. Ludmila FarooqGlobulin (S) [Mass/Vol]3.4 g/dLNormalThe [facility] FoundationComment on above:Performed By: #### CMP, T7, LIPID, TSH #### [facility] [address] [place] [address] Dr. Ludmila FarooqGlucose [Mass/Vol]91 mg/tVDxcdvy66-577MlzMercy Health Def[facility] Hospital Comment on above:Performed By: #### CMP, T7, LIPID, TSH #### [facility] [address] [place] [address] Dr. Ludmila FarooqPotassium [Moles/Vol]3.8 mmol/LNormal3.5-5.1The [facility] Comment on above:Performed By: #### CMP, T7, LIPID, TSH #### [facility] [address] [place] [address] Dr. Ludmila FarooqProtein [Mass/Vol]6.8 g/dLNormal6.4-8.2The [facility] Comment on above:Performed By: #### CMP, T7, LIPID, TSH #### [facility] [address] [place] [address] Dr. Ludmila FarooqSodium [Moles/Vol]140 mmol/VKutoaz582-118VazMercy Health Defiance Hospital Comment on above:Performed By: #### CMP, T7, LIPID, TSH #### [facility] [address] [place] [address] Dr. Ludmila FarooqUrea nitrogen [Mass/Vol]16.0 mg/dLNormal7.0-18.0Mer[facility] Def[facility] HospitalComment on above:Performed By: #### CMP, T7, LIPID, TSH #### [facility] [address] [place] [address] Dr. Ludmila FarooqUrea nitrogen/Creatinine [Mass ratio]19.5 mg/mgNormalThe [facility] FoundationComment on above:Performed By: #### CMP, T7, LIPID, TSH #### [facility] [address] [place] [address] Dr. Ludmila Trinidad 74-62-5097GWV4.608 uIU/mLNormal0.358-3.740Mer[facility] Health Defiance HospitalComment on above:Performed By: #### CMP, T7, LIPID, TSH ####[facility] [address], [place] [address]Br. Ludmila Olivier [facility] - DublinComment on above:Result Comment: <0.34 UIU/ml HYPERTHYROID 0.34-5.60 UIU/ml EUTHYROID >5.60 UIU/ml HYPOTHYROIDPerformed By: #### CMP, T7, LIPID, TSH ####[facility] [address], [place] [address]Ls. Ludmila FarooqXR RIBS RT [place] Gage 28-66-5538ZD RIBS RT PA CHEXAMINATION: XR RIBS RT PA CH HISTORY: Pleuritic [...] Electronically authenticated by: BHARATHI SHAHID Date: 2021-11-26 07:07[facility] Vital Signs Date TimeVital SignValuePerforming HumskjhywBybszibn56-25-4999 15:58-0400Body .1 Destiney TREVINO Work Phone: NOColumbia Regional HospitalGoqklugbtm07-02-1332 15:58-0400Body mass index (BMI) [Ratio]25.46 kg/m2Nick TREVINO Work Phone: NOColumbia [facility] HospitalNarhovsclw44-20-5468 15:58-0400Body hteisx34.4 kg Nick TREVINO Work Phone: NOColumb[facility] HospitalTgieeqaxco91-43-9178 15:58-0400Diastolic blood mm[Hg]Nick TREVINO Work Phone: NOColumb[facility] HospitalXsfjbfvkcg10-61-5836 15:58-0400Heart rate62 /min Nick TREVINO Work Phone: NOColumb[facility] HospitalCqjgiqmwzv01-69-2072 15:58-0400Respiratory rate16 /minAnne Hill PA Work Phone: NOColumbia [facility] HospitalNiecdgrrmt13-65-9954 15:58-7589NjU5% (BldA) [Mass fraction]99 %Nick Donato PA Work Phone: NOColumbia [facility] HospitalUgejkzzawf44-91-8476 15:58-0400Systolic blood kdxumdjg467 mm[Hg]Nick Donato PA Work Phone: NOColumbia [facility] HospitalCbfhrofcbh68-59-0906 16:07-0500Body mass index (BMI) [Ratio]25.34 kg/a2Cazprh Deon KICK PRESS OPERATOR Work Phone: NOColumb[facility] HospitalNpsqbpptnj87-90-6862 16:07-0500Body lojilk76.22 kgSidsheri Deon KICK PRESS OPERATOR Work Phone: NOColumb[facility] HospitalAszsesjbtc15-64-7329 16:07-0500Diastolic blood pdikakvc56 mm[Hg]Yasmin Nguyen KICK PRESS OPERATOR Work Phone: NOColumb[facility] HospitalPtcwanjdkb11-00-5774 16:07-0500Heart rate69 /min Yasmin Nguyen KICK PRESS OPERATOR Work Phone: noColumbia Regional HospitalSptacrxqry53-29-9574 16:07-0500Systolic blood mm[Hg]Yasmin Nguyen KICK PRESS OPERATOR Work Phone: noColumbia Regional HospitalVdjpporgob57-49-4918 14:20-0400Body ukyyih38.85 kgAlfred Marcellus OLIVER Work Phone: [facility] Encounters Encounter DateEncounter TypeCare ProviderFacilityStart: 02-06-2025 End: 56-29-1101Abndok flowsheetEmdianna Alvarez MD Work Phone: [facility] DERMStart: 02-06-2025 End: 38-88-2409Peayfi flowsheetEmdianna Alvarez MD Work Phone: [facility] SWS DERMStart: 02-06-2025 End: 62-43-1939Aofvga outpatient visit 15 minutesEmdianna Alvarez MD Work Phone: [facility] SWS DERMComment on above:Seborrheic keratosis (Primary Dx); Inflamed seborrheic keratosis; Melanocytic nevus of trunk; Lentigines; Capillary angioma; Rash and other nonspecific skin eruptionStart: 02-06-2025 End: 98-03-2447qtpjaapydzGLPWM A PETITTINot AvailableStart: 01-10-2025 End: 73-82-1097Wtizdb outpatient visit 15 minutesNick TREVINO Work Phone: aNA BELLEVUEComment on above:Migraine without status migrainosus, not intractable, unspecified migraine type (CMS/HCC) (Primary Dx); Seizure disorder (CMS/HCC); DizzinessStart: 01-10-2025 End: 27-81-4199jtfjlpebmqGQEF HILLNot AvailableStart: 01-10-2025 End: 28-42-2014Hvlqar Kierra TREVINO Work Phone: ana BELLEVUEStart: 01-10-2025 End: 41-70-3517Tbpplm Kierra TREVINO Work Phone: aNA BELLEVUEStart: 07-25-2024 End: 74-02-1803kroxmqykxzPOMNKH MORRISNot AvailableStart: 07-25-2024 End: 34-38-2432Nnncob outpatient visit 15 minutesYasmin Nguyen KICK PRESS OPERATOR Work Phone: [facility] [place] STATE ROUTEComment on above:Seizure disorder (CMS/HCC) (Primary Dx); Migraine without status migrainosus, not intractable, unspecified migraine type (CMS/HCC); DizzinessStart: 07-25-2024 End: 91-56-1465Eqzpwt Marvin Nguyen KICK PRESS OPERATOR Work Phone: [facility] [place] STATE ROUTEStart: 07-25-2024 End: 39-64-6679Wmizpb Marvin Nguyen KICK PRESS OPERATOR Work Phone: [facility] [place] STATE ROUTEStart: 11-21-2022 End: 83-20-2465ykubhvdxytJFSMJKJ M HOYFacility:[facility] Hospitaltart: 11-21-2022 End: 37-09-2580Gdwcidl encounter procedureAlfred Marcellus OLIVER Work Phone: OrthopaedicsComment on above:Painful orthopaedic hardware (HCC) (Primary Dx); Right knee pain, unspecified chronicityStart: 11-21-2022 End: 84-98-9348Ufqsrhpdmu hospital visit by physicianLindsey Taylor Work Phone: RadiologyComment on above:Pain [R52]Start: 11-18-2022 Telephone encounterAlfred Marcellus OLIVER Work Phone: [phone] InstituteComment on above:Release Of Medical RecordsStart: 51-12-6237beeshgqmjyBP AASHISH HOYFacility:U7Oftkm: 01-08-2022 Encounter for general adult medical examination without abnormal findingsDR AASHISH HOYThe [facility] - Akrontart: 01-04-2022 End: 37-93-3414lziqgqpcmgDZ AASHISH HOYFacility:P4Zvrea: 01-04-2022 End: 57-49-9829Quzifotvk for general adult medical examination without abnormal findingsDR AASHISH HOYFacility:M3Gsbuy: 11-25-2021 End: 43-45-8329bjqpnuasvtFB AASHISH HOYFacility:O5Bfrgg: 09-11-2021 End: 67-07-1395isznsxsdudTE AASHISH HOYFacility:V3Nriyp: 12-21-2017 End: 66-12-5321LftwqiphouGFBUBPF PHYSICIANFacility:[facility] Procedures DateProcedureProcedure DetailPerforming ClinicianStart: 53-33-1863Vunhlifwyk exam knee complete 4/more viewsAlfred Marcellus OLIVER Work Phone: Plan of Treatment DateCare ActivityDetailAuthorStart: 34-45-2432DWG Vaccine (1 - 1-dose 75+ series)RSV Vaccine (1 - 1-dose 75+ series)[facility] Centertart: 02-06-2026 End: 46-06-1467Psbjpck encounter jleagjidw82/16/2026 4:00 PM EDT Office Visit [facility] [address] [place] [id number] Leann Alvarez MD [address] [place] [address] [facility] SWS DERMStart: 07-06-2025 End: 41-44-7895Dzcyiak encounter karllbjun38/13/2025 3:45 PM EST Office Visit JOSE ARMANDO MCBRIDE [address] [place] [address] Angel Thurman DO [address] [place] [address] JOSE ARMANDO LOREDOEVUEStart: 00-95-0555Otwsnkhwo vaccinationInfluenza Vaccine (Season Ended)[facility] HealthcareStart: 02-06-2025 End: 54-00-2996Ruafkfj encounter procedureNOMS SWS DERMComment on above:Arrived Start: 01-10-2025 End: 93-54-1869Izffscp encounter kruprrjvq71/20/2025 4:00 PM EDT Office Visit JOSE ARMANDO MCBRIDE [address] [place] [phone] Nick Donato PA [address] [place] [address] ArrivedANA BELLEVUEComment on above:ArrivedStart: 27-21-8942Hpbua-19 Vaccine ( season)Covid-19 Vaccine ( season)[facility]ertart: 21-30-3839Yfuwygrhl vaccinationInfluenza Vaccine (#1)[facility]ertart: 82-04-4934XQJMOGIPWQ ASSESSMENTDEPRESSION ASSESSMENTCleuniversity hospitals [facility] ClinicStart: 60-65-8434Rrvtcxpor vaccinationINFLUENZA (#1)[facility] Centertart: 36-51-4682XLMOD-19 VACCINE (4 - Booster for Moderna series)COVID-19 VACCINE (4 - Booster for Moderna series)[facility] Centertart: 85-54-7075MMXJOESH SCREEN DIABETES SCREENUniversity Hospitals Ahuja Medical Centertart: 59-34-7239Hvlwwncn ScreeningDiabetes ScreeningCleWexner Medical Centertart: 62-09-9569DZPGCBFV VACCINE (1 of 2)SHINGRIX VACCINE (1 of 2)[facility] Centertart: 47-88-3247JEPKZSOPJ (FIT-DNA)COLOGUARD (FIT-DNA)[facility] Centertart: 98-30-6602RjkcncpsqtsWLTEYFEMIIGEtgknnzcr Clinic Start: 44-95-4899DWRQEDYWVC CANCER SCREENINGCOLORECTAL CANCER SCREENINGUniversity Hospitals Ahu[facility] Medical Centertart: 60-10-4660OP COLONOGRAPHYCT COLONOGRAPHYUniversity Hospitals Ahuja Medical Centertart: 13-48-5822RYYMB OCCULT BLOODFECAL OCCULT BLOODUniversity Hospitals Ahuja Medical Centertart: 2006 Lipid panelLipid ScreeningUniversity Hospitals Ahuja Medical Centertart: 16-70-0694BVVVN SCREENLIPID SCREENUniversity Hospitals Ahuja Medical Centertart: 85-99-9873Gsawfasya for malignant neoplasm of colon [facility] Centertart: 21-68-6522YXPIGEACKBELTFPNJLQHVYVGIHBeqggyams Clinic Start: 42-38-8912HvjavdzitiuNRTMCWOKCMtzfltrlm ClinicStart: 89-03-6461Dywxbefsa for malignant neoplasm of breastUniversity Hospitals Ahuja Medical Centertart: 22-94-3726GPY TESTINGHPV TESTINGUniversity Hospitals Ahuja Medical Centertart: 36-93-6297Rhhgftkld for malignant neoplasm of cervixUniversity of Missouri Children's HospitalStart: 83-48-2473KGL TESTINGPAP TESTINGC[facility] Clinic [facility] Hospital Start: 88-68-8847Ufcrptnvj for malignant neoplasm of cervixCleveland Clinic Union Hospital Start: 40-24-4897Txgzw microalbumin profileUniversity Hospitals Ahuja Medical Centertart: 01[birth year]01-1980 Anxiety ScreeningAnxiety ScreeningUniversity Hospitals Ahuja Medical Centertart: 93-72-1369Igygohziuc ScreeningDepression ScreeningUniversity Hospitals Ahuja Medical Centertart: 00-89-1635NHKWYFUYB C SCREENINGHEPATITIS C SCREENINGUniversity Hospitals Ahuja Medical Centertart: 24-54-7482Dgwfadzyn C screeningHepatitis C ScreeningUniversity Hospitals Ahuja Medical Centertart: 35-67-0133CDU SCREENINGHIV SCREENINGUniversity Hospitals Ahuja Medical Centertart: 65-59-0275RBS screeningHIV ScreeningUniversity Hospitals Ahuja Medical Centertart: 10-74-2433EEVJQ-19 VACCINE (#1)COVID-19 VACCINE (#1)[facility] Centertart: 84-17-2912Aodlkqecl for malignant neoplasm of colonNOMS Healthcare [facility] Payers DatePayer CategoryPayerPolicy [id number] Health InsuranceMEDICAL MUTUAL [id number] [id number] 2.16.840.1.261411.3.57[id number] 2.16.840.1.090050.3.57[id number] 2.16.840.1.309320.3.579.[id number] 2.16.840.1.943927.3.57[id number] 2.16.840.1.075890.3.57[id number] 2.16.840.1.237559.3.579.2.115365-06-6656Jlnk-[id number] Social History DateTypeDetailFacilityStart: 09-06-2013 End: 03-95-0362Cwfeitw smoking status NHISNever smoked tobaccoCleveland Clinic Union Hospital Start: 09-06-2013 End: 30-33-3349Nexkbin use and exposureSmokeless tobacco non-userUniversity Hospitals Ahuja Medical Centertart: 35-76-2380Nbxfoce intakeCurrent drinker of alcohol (finding) [facility] Centertart: 65-96-9923Uyv Assigned At BirthNot on fileUniversity Hospitals Ahuja Medical Centertart: 11-21-2022 End: 68-01-8747Ugyhwod of Social functionUniversity Hospitals Ahuja Medical Centertart: 11-21-2022 End: 08-50-0864Fffu Deprivation IndexCleSumma Health Barber[facility] Campus Score (1-100), lower number is lower savr25FckybyyhmUniversity Hospitals Ahuja Medical Centertart: 02-08-2024 End: 27-30-7443Kezrcvkna beverage intakeLifetime non-drinker (finding)[facility] Medical Equipment Procedure CodeEquipment CodeEquipment Original TextEquipment IdentifierDates Jennifer L-Mesh - [id number]: 72-39-3343Lyei Trnvg Jg 45x1.1cm Gyncr - [id number]: 09-12-2013 Clinical Notes 09-12-2021 to 02-06-2025 Note Date & ErrwQddlTkhlmqzn53-49-4349 History of Present illness Narrative* Leann Alvarez MD - 02/06/2025 9:45 AM EDT Skin Check Location: Patient requests a full [...] Right arm Examined Patient is wearing toenail urdu. Denies any dark streaks. Left arm Examined [...] office if abnormal redness or tenderness develops atthe treatment site. Cryotherapy today, see procedure note. Diagnosis: Inflamed seborrheic keratosis Indication: Inflamed Consent: Verbal consent was obtained and risks were discussed, including, but not limited to risks of scarring, darker or corporate receptionist pigmentary changes, recurrence, incomplete removal and infection. [...] benign pigmented lesions that occur on sun-exposed andsun-damaged skin. No treatment is necessary. Recommended regular [...] 1 year, skin check documented in this encounterUniversity of Missouri Children's HospitalRkwwfbgebn59-30-6252 History of Present illness Narrative* BELINDA Tyler - 01/10/2025 4:00 PM EDT Images from the original note were not included. 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 LUE Strength deltoid , biceps , triceps , wrist extensors , wrist flexor , green feed attendant strength 5/5. RLE Strength illopsoas, quadriceps, tibialis [...] knee reflex 2+. Franklin's Sign negative. Coordination: Nzbldd-es-ywnc testing not assessed Rapid alternating movements are [...] acute intracranial findings. [address] [facility] on 10/17/21: prelim normal Labs 10/06/20: TSH [...] blurry vision. No longer taking fioricet as anabortive and currently does not feel migraines are overly bothersome. Migraine aura versus seizure aura has been considered. PLAN: - Okay to utilize Tylenol +/- Benadryl when necessary to abort migraines. This combination has beenvery successful for her. - Recommended adequate hydration, [...] instructions Nick Donato PA-C documented in this encounterUniversity of Missouri Children's HospitalMidmzdrrsf50-96-2126 NoteHNO ID: [id number] Author: Louie Germain MD Service: ? Author [...] a syncopal episode on 2015 while in [place]. This resulted in a pelvic fracture. She [...] healed patellar fracture. 2 K wires with izxyvw-cm-fpaql cerclage wire. The K wires appear to be prominent both proximally and distally. The lateral wire appears to be migrated distally from prior x-rays IMPRESSION: Encounter Diagnosis ICD-10-CM 1. Painful orthopaedic hardware ([facility]) T84.84XA CONSULT TO(TCI)PRE-OP CLEAR SURGICAL REQUEST [...] the hardware r (more content not included)... [facility]03-31-2023 NoteHNO ID: [id number] Author: Randi Sorensen RT(R) Service: ? Author [...] IV DATA: Not applicable SIGNED BY: Randi Sorensen, (R) November 21, 2022 2:12 [facility]03-31-2023 History of Present illness Narrative* Louie Germain MD - 11/21/2022 3:14 PM EDT This document has been created with the [...] a syncopal episode on 2015 while in [place]. This resulted in a pelvic fracture. She subsequently underwent surgical treatment with fixation using K wireand cerclage wire technique. She subsequently was placed [...] MEDICAL HISTORY Diagnosis Date Epilepsy ([facility]) Glaucoma Hypothyroid SOCIAL HISTORY: Tobacco Use: [...] healed patellar fracture. 2 K wires with lvvzzw-ge-sdjbk cerclage wire. The K wires appear to be prominent both proximally and distally. The lateral wire appears to be migrated distally from prior x-rays IMPRESSION: Encounter Diagnosis ICD-10-CM 1. Painful orthopaedic hardware ([facility]) T84.84XA CONSULT TO(TCI)PRE-OP CLEAR SURGICAL REQUEST [...] answered. Louie Germain MD documented in this encounterC[facility] Clinic [facility] Hospital03-28-2023 Miscellaneous Notes* Telephone Encounter - Rhiannon Pruett RN - 11/18/2022 3:11 PM EDT Called patient and let her know that we would like to have the patients operative records from her previous knee surgery. Gave her our fax number. Let her know that if she is unable to get her records by Thursday we would still see her. Patient stated understanding. * Telephone Encounter - Anne Sanches Ma - 11/18/2022 2:35 PM EDT Tigist Morton is calling Louie Germain MD today to request Release Of Medical Records Patient calling stating she has appt 11/[address] Germain. States she is not able to get a hold of the doctor in [facility] to ask for records from when she was hospitalized in 07/17/[address] Germain office could try calling them to see if they could get the records? Patient wondering if she has to cancel appt if no records are received before appt? Please advise patient. [facility] Phone- [phone] Fax- [phone] Patient has been identified by name and birthdate. Duration of symptoms: N/A Person calling: self Call patient at: at home [phone] (home) [phone] (work) [phone] (cell) Was an appointment scheduled: No Closing statement: Results or non-symptom based questions: Thank you for calling [facility], your call will be returned within the next business day. Anne Sanches documented in this encounterCleveland Clinic Union Hospital01-20-2022 NotePROCEDURE: XR KNEE LT 4V or > COMPARISON: None. HISTORY: Pain FINDINGS: BONES:No acute fracture or dislocation. Minimal enthesopathic spurring of the patella at the quadriceps insertion SOFT TISSUES:Negative. No visible soft tissue swelling. EFFUSION:Small suprapatellar joint effusion OTHER: Negative. IMPRESSION: Small joint effusion Electronically authenticated by: EFRAIN GRANT Date: 2021-09-12 07:36[facility] Administrationaluation note* Diagnosis Painful orthopaedic hardware (HCC)- Primary Other complications due to other internal orthopedic device, implant, and graft Right knee pain, unspecified chronicity Painful orthopaedic hardware (HCC) Other complications due to other internal orthopedic device, implant, and graft documented in this encounter [facility] HospitalEvaluation note* Diagnosis Pain Generalized pain documented in this encounter [facility] HospitalEvaludelaware hospital for the chronically ill note* Diagnosis Seizure disorder (CMS/HCC)- Primary Unspecified epilepsy without mention of intractable epilepsy Migraine without status migrainosus, not intractable, unspecified migraine type (CMS/HCC) Dizziness Dizziness and giddiness documented in this encounter [facility] HealthcareEvaluation note* Diagnosis Migraine without status migrainosus, not intractable, unspecified migraine type (CMS/HCC)- Primary Seizure disorder (CMS/HCC) Unspecified epilepsy without mention of intractable epilepsy Dizziness Dizziness and giddiness documented in this encounter [facility] HealthcareEvaluation note* Diagnosis Seborrheic keratosis- Primary Inflamed seborrheic keratosis Melanocytic nevus of trunk Benign neoplasm of skin of trunk, except scrotum Lentigines Capillary angioma Nevus, non-neoplastic Rash and other nonspecific skin eruption documented in this encounter [facility] HealthcareReason for referral (narrative)* Diagnostic Procedure Only (Routine) - ClosedSpecialtyDiagnoses / ProceduresReferred By ContactReferred To ContactXR IMAGING Diagnoses Pain Procedures XR KNEE GENERAL 4V AP BOTH/PA BOTH/LAT/MERC RIGHT RADIOLOGIC EXAM KNEE COMPLETE 4/MORE VIEWS Louie Germain MD [address] [facility] [place] [address] [place] [address] Referral IDStatusReasonStart DateExpiration DateVisits RequestedVisits [id number] Auto-Generated Referral [facility] for visit Narrative* Diagnostic Procedure Only (Routine) - ClosedSpecialtyDiagnoses / ProceduresReferred By ContactReferred To Contact XR IMAGING Diagnoses Pain Procedures XR KNEE GENERAL 4V AP BOTH/PA BOTH/LAT/MERC RIGHT RADIOLOGIC EXAM KNEE COMPLETE 4/MORE VIEWS Louie Germain MD [address] [facility] [place] [address] [place] [address] Referral IDStatusReasonStart DateExpiration DateVisits RequestedVisits [id number] Auto-Generated Referral [facility] Summary Purpose Family History No Family History Records FoundNo Family History Records FoundNo Family History Records FoundNo Family History Records FoundNo Family History Records Found Advance Directives No Advanced Directives Records FoundNo Advanced Directives Records FoundNo Advanced Directives Records FoundNo Advanced Directives Records FoundNo Advanced Directives Records Found Additional Source Comments INFORMATION SOURCE (unrecogn ized section and content) DATE CREATED AUTHOR 02/11/2018 [facility] DATE CREATED AUTHOR AUTHOR'S ORGANIZ ATION 01/24/2022 [facility] DATE CREATED AUTHOR AUTHOR'S ORGANIZ ATION 03/22/2022 [facility] DATE CREATED AUTHOR AUTHOR'S ORGANIZ ATION 11/22/2022 [facility] DATE CREATED AUTHOR AUTHOR'S ORGANIZ ATION 02/07/2025 [facility] EPIC Source Comments (unrecognize d section and content) In the event this informatio n is protected by the Federal Confidentiality of Alcohol and Drug Abuse Patient Records regulations: The Federal rules restrict any use of the information to criminally investigate or prosecute any alcohol or drug abuse patient.[facility] HospitalIn the event this information is protected by the Federal Confidentiality of Alcohol and Drug Abuse Patient Records regulations: The Federal rules restrict any use of the information to criminally investigate or prosecute any alcohol or drug abuse patient.[facility] HospitalIn the event this information is protected by the Federal Confidentiality of Alcohol and Drug Abuse Patient Records regulations: The Federal rules restrict any use of the information to criminally investigate or prosecute any alcohol or drug abuse patient.[facility] Reason for Visit (unrecogniz ed section and content) ReasonCommentsRelease Of Medical RecordsReasonCommentsNewReasonCommentsSeizures MigraineDizzinessReasonCommentsSeizuresReasonCommentsSkin CheckRash Care Teams (unrecognized sec tion and content) Team MemberRelationshipSpecialtyStart DateEnd Date Aashish Guerrero MD PCP - GeneralFamily Tlxpgptt12/13/13Team MemberRelationshipSpecialtyStart Date End Date Aashish Guerrero MD PCP - GeneralFamily Lrfcahpp78/13/13Team MemberRelationshipSpecialtyStart Date End Date Aashish Guerrero MD PCP - GeneralFamily Twexbwdi18/13/13Team MemberRelationshipSpecialtyStart Date End Date Aashish Guerrero MD [address] [place] [address] PCP - GeneralFamily Medicine02/08/24 Yasmin Nguyen NP [address] [id number] Nurse EnycofvpyvxhVxuqesakj01/29/24 Angel Thurman DO [address] [id number] Referring BquaivblaFtnyxehtt58/29/24Team MemberRelationshipSpecialtyStart Date End Date Aashish Guerrero MD [address] [place] [address] PCP - GeneralFamily Medicine02/08/24 Yasmin Nguyen NP [address] [phone] Nurse KnvdiqvzjeusIkfsqticw69/29/24 Angel Thurman DO [address] [phone] Referring YzccmpzjoSsrxdlmww69/29/24Team MemberRelationshipSpecialtyStart Date End Date Aashish Guerrero MD PCP - GeneralFamily Medicine02/08/24 Yasmin Nguyen NP Nurse CdddculrzqzoEjnczfzxo19/29/24 Angel Thurman DO [address] [address] Referring ZinazqyjaLfjqnfupr20/29/24Team MemberRelationshipSpecialtyStart Date End Date Aashish Guerrero MD PCP - GeneralFamily Medicine02/08/24 Yasmin Nguyen NP Nurse PypflerllbfuNvsnwdazb47/29/24 Angel Thurman DO [address] [place] [address] Referring ZtzckbvxsTkcbiiunt42/29/24Team MemberRelationshipSpecialtyStart Date End Date Aashish Guerrero MD PCP - GeneralFamily Medicine02/08/24 Yasmin Nguyen NP Nurse XpbewscuflbiPzsxvkxiu26/29/24 Angel Thurman DO [address] [place] [address] Referring UosliomgiTxizxvfhf59/29/24Team MemberRelationshipSpecialtyStart Date End Date Aashish Guerrero MD PCP - GeneralFamily Medicine02/08/24 Yasmin Nguyen NP Nurse BflrealqubzmJmpfxhgmf96/29/24 Angel Thurman DO [address] [phone] Referring TpvgwvcswXroxsgugm47/29/24 FOR RECORDS PERTAINING TO PATIENTS WHO ARE [...] BE BASED ON THE PRIMARY CLINICAL RECORDS. [facility] [employer] [facility]. provides no warranty or guarantee of the accuracy or completeness of information in this document.
--- OUTSIDE RECORDS SUMMARY | 2025-07-24 18:00 | XMS_ITS | Clinical Summary ---
Author Organization [facility] Address [address] [place], [place] [address] Care Team Providers Care Checkroom Attendant Name Role Phone Uday Guerrero MD Primary Care Provider [phone] Allergies No known active allergies Medications MedicationSigDispense QuantityRefillsLast FilledStart DateEnd DateStatus levothyroxine (LEVOTHROID) 100 mcg tablet Take 100 mcg by mouth daily before breakfast.Active levETIRAcetam (KEPPRA) 500 mg tablet Take 3,000 mg by mouth daily at bedtime.Active cyclobenzaprine (FLEXERIL) 10 mg tablet Take 10-20 mg by mouth daily at bedtime.Active ibuprofen 600 mg tablet Take 1 tablet by mouth every 8 hours as needed for Pain. 60 tablet ctive docusate sodium (COLACE) 100 mg capsule Take 1 capsule by mouth twice daily as needed for Constipation. 60 capsule ctive BUSPIRONE HCL (BUSPIRONE ORAL) Indications:H/O: knee surgeryTake by mouth.Active predniSONE (DELTASONE) 10 mg tablet Indications:Closed fracture of right patella, unspecified fracture morphology, initial encounterTAKE ONE TABLET TWICE DAILY TIMES 7 DAYS THAN ONE TABLET DAILY TIMES 7 DAYS. 21 tablet 01/22/2017Active Active Problems No known active problems Family History Medical HistoryRelationCommentsHeartFatherThyroidMotherRelationStatusComments FatherMother Social History Tobacco UseTypesPacks/DayYears UsedDateSmoking Tobacco: NeverSmokeless Tobacco: NeverAlcohol UseStandard Drinks/WeekCommentsYes0 (1 standard drink = 0.6 oz pure alcohol)occArea Deprivation IndexAnswerDate RecordedNational Score (1-100), lower number is lower vmmf236111/21/2022State Score (1-10), lower number is lower riskNot on file3Data from: https://www.neighborhoodatlas.[facility].edu/. Last address used for uxsqiukieng[address]3CommentsNoSex and Gender Information ValueDate RecordedSex Assigned at BirthNot on fileLegal RqxXrybpz28/13/2013 2:48 PM ESTGender IdentityNot on fileSexual OrientationNot on file Last Filed Vital Signs Vital SignReadingTime TakenCommentsBlood Omxsvoiv671/6407 11:47 AM EDT Qiyvu9512 2:32 PM NYWDhnycgjubzc80.6 ??C (97.9 ??F)09/13/2013 2:32 PM ESTRespiratory Vkqi500609/13/2013 2:32 PM ESTOxygen Invaiybbsd36%09/13/2013 2:32 PM ESTInhaled Oxygen Concentration--Mvddbf88.9 kg (154 lb)11/21/2022 2:20 PM EDT Svylpj665.6 cm (5' 6 )02/28/2014 11:47 AM EDTBody Mass Index24.8602/28/2014 11:47 AM EDT Plan of Treatment Health MaintenanceDue DateLast DoneCommentsAnxiety Twfbmvxcd82/10/1980Depression Tflvwsjne04/10/1980HIV Meawfdrfq17/10/1980Hepatitis C Axocmhzrv22/10/1980 DTaP,Tdap,Td Vaccine (1 - Tdap)1980Cervical Cancer Biihxwzcw23/10/1983 Mammogram Uegbzokpv81/10/2002CT Ywpcmprhlqub29/10/2007Cologuard (FIT-DNA) 12/31/20060256Wkogjkrlxhj68/10/2007Colorectal Cancer Rpxrauymj91/10/2007Fecal Occult Blood2006Lipid Talnokmze91/10/0156Swizkptgicqqi16/10/2007Pneumococcal Vaccine: 50+ (1 of 1 - PCV)01/01/2012Shingrix Vaccine (1 of 2)01/01/2012Diabetes Jfdueryhe25/20/, 09/06/2013Covid-19 Vaccine (4 - season) /, 12/01/2020, 11/03/2020Influenza Vaccine (#1)2025RSV Vaccine (1 - 1-dose 75+ series)2036 Medical Devices ImplantedTypeAreaManufacturerDevice IdentifierShelf Expiration DateModel / Serial / LotRestorelle L-Mesh - [id number] Implanted:Qty: 1 on 09/12/2013 [facility] 06/23/[id number] / / [id number] Trnvg Jg 45x1.1cm Gyncr - [id number] Implanted:Qty: 1 on 09/12/2013 at [facility]TVT DeviceGYNECARE A JJ PJDZZCD47/30/[id number] / / [id number] Procedures Procedure NamePriorityDate/TimeAssociated DiagnosisCommentsBASIC METABOLIC PANEL STAT09/12/2013 10:28 PM EST from Last 3 Months or Most Recently Relevant to Health Maintenance Results * (ABNORMAL) BASIC METABOLIC PNL (09/12/2013 10:28 PM EST)ComponentValueRef RangeTest MethodAnalysis TimePerformed AtPathologist HwewzabpqYtgltpa33194 - 100 mg/dLMER[facility] LABORATORYBUN7(L)8 - 25 mg/dLMERCY [facility] LABORATORYCreatinine0.68(L)0.70 - 1.40 mg/dLMER[facility] OODQBKTIMJUujiku584922 - 148 mmol/LCMEMORIAL HEALTH SYSTEM [facility]EL[facility] MAIN LABORATORYPotassium 3.63.5 - 5.0 mmol/LCMEMORIAL HEALTH [facility] MAIN GWKPIEVDQNIxlzljcj66635 - 110 mmol/L [facility] MA[facility] ZXFTRWICFGZE33514 - 32 mmol/LCMEMORIAL HEALTH SYSTEM [facility] MAIN LABORATORYAnion Gon884 - 15 mmol/LCMEMORIAL HEALTH [facility] MAIN LABORATORYCalcium8.1 (L)8.5 - 10.5 mg/dLMER[facility] LABORATORYSpecimen (Source)Anatomical Location / LateralityCollection Method / VolumeCollection TimeReceived Time Blood specimen (specimen)BLOOD SPECIMEN / Agawzoz6509/12/2013 10:28 PM EST 09/12/2013 10:29 PM EST Narrative Authorizing ProviderResult TypeResult StatusHazel Cobian MDLABORATORYFinal ResultPerforming OrganizationAddressCity/State/ZIP CodePhone Number [facility] [address] [place] [address] from Last 3 Months or Most Recently Relevant to Health Maintenance Insurance Care Teams Team MemberRelationshipSpecialtyStart Date Uday Guerrero MD PCP - GeneralFamily Npcagoig83/13/13
--- OUTSIDE RECORDS SUMMARY | 2025-07-24 18:00 | XMS_ITS | Clinical Summary ---
Author Organization [facility] Address [address] [place] [address] Care Team Providers Care Envelope Cutter Name Role Phone Uday Guerrero MD Primary Care Provider + Miryam Chavarria STEAM PRESSER Unavailable [phone] Angel Thurman DO Unavailable [phone] Allergies No known active allergies Medications MedicationSigDispense QuantityRefillsLast FilledStart DateEnd DateStatus levothyroxine (Synthroid, Levoxyl) 100 MCG tablet Take 100 mcg by mouth DailyActive acetaminophen (Tylenol) 325 MG tablet Active cyclobenzaprine (Flexeril) 10 MG tablet Active simvastatin (Zocor) 20 MG tablet Take 20 mg by mouth at hvxakqf7801/19/2023ctive latanoprost (Xalatan) 0.005 % ophthalmic solution 01/05/2023ctive timolol (Timoptic) 0.5 % ophthalmic solution 01/07/2023ctive liothyronine (Cytomel) 5 MCG tablet 1 (one) time each day at the same time01/27/2024ctive alendronate (Fosamax) 70 MG tablet 11/16/2023ctive magnesium, as gluconate, (Magonate) 500 (27 Mg) MG tablet Take 27 mg by mouth in the morning and 27 mg before bedtime.Active levETIRAcetam XR (Keppra XR) 500 MG 24 hr tablet Indications:Seizure disorder (HCC)Take 5 tablets by mouth once daily. Do not crush, chew, or split. 150 tablet 605Active Active Problems ProblemNoted DateDiagnosed IcpuUooclkuh23/14/2024Sleep ixjnqxzsseo57/14/2024 Ezbcrgco21/14/2024Medication monitoring mcyekvboo29/14/2024Other malaise 02/05/2024enign paroxysmal positional affbzpu7502/05/20247496Lokhzdp80/14/2024Seizure jlhavblh19/14/2024entral vestibular djbnnss3502/05/2024Memory loss02/05/2024 Hhdvldogd56/14/2024Insomnia, ykkhvzzlmgu50/14/2024Hair loss02/05/2024Vitamin D yrkbzrlbxo98/14/2024aresthesia of skin02/05/20240197Ymlhobllspu12/13/2023alance eyyftecv89/13/2023Vertigo of central iaqqzb6106/05/2023 Resolved Problems ProblemNoted DateDiagnosed DateResolved DateUnilateral vestibular weakness Family History Medical HistoryRelationNameCommentsHeart diseaseFatherMelanomaNeg HxRelationName StatusCommentsFatherDeceasedMotherAlive Social History Tobacco UseTypesPacks/DayYears UsedDateSmoking Tobacco: NeverSmokeless Tobacco: NeverAlcohol UseStandard Drinks/WeekCommentsNever0 (1 standard drink = 0.6 oz pure alcohol)CommentsUnknownSex and Gender InformationValueDate Recorded Sex Assigned at BirthNot on fileLegal DxfRrolni63/15/2023 6:45 PM EDTGender IdentityNot on fileSexual OrientationNot on file Last Filed Vital Signs Vital SignReadingTime TakenCommentsBlood Mclrjdsi396/72001/10/2025 3:58 PM EDT Cbcfh6155/20/2025 3:58 PM EDTTemperature--Respiratory Dliu450901/10/2025 3:58 PM EDTOxygen Cvuefggdzq19%01/10/2025 3:58 PM EDTInhaled Oxygen Concentration-- Dvrxih65.4 kg (153 lb)01/10/2025 3:58 PM FPWOsymwn156.1 cm (5' 5 )01/10/2025 3:58 PM EDTBody Mass Index25.46001/10/2025 3:58 PM EDT Plan of Treatment DateTypeDepartmentCare Team (Latest Contact Info)Kpilzyzexfq31/16/2026 4:00 PM EDTOffice Visit [facility] [address] [place] [phone] Leann Gil MD [address] [place] [address] Health MaintenanceDue DateLast DoneCommentsCT Ldiqhzntqwtc35/10/1962Colonoscopy 2Colorectal Cancer Dmcqnveqv05/10/1962FIT-DNA1961FIT1961 FOBT3977Moyegjxualrwh77/10/1962Pap Smear1982Cervical Cancer Yeznjjmve25/10/1992HPV/Qwgpks1601/01/19926892Bhnlyzgkq18/10/2002COVID-19 Vaccine (2024- season), 12/01/2020, 11/03/2020Influenza Vaccine (#1)2025Pneumococcal Vaccine: Pediatrics (0 to 5 Years) and At-Risk Patients (6 to 64 Years)Aged OutNo longer eligible based on patient's age to complete this topic Insurance * Guarantor: Tigist Morton TypeRelation to PatientDate of BirthPhone Billing AddressPersonal/XrganqUehe06/10/1961 [facility] [place] [address] Care Teams Team MemberRelationshipSpecialtyStart DateEnd Uday Guerrero MD [address] [facility] [place] [address] [phone] PCP - GeneralFamily Medicine02/08/24 Miryam Chavarria NP [address], [place] [address] Nurse SfdupeegazfjDlgtfyxsq89/29/24 Angel Thurman DO [address] [facility] [address] [place] [address] Referring XffhkexlqZgmdbvnot39/29/24
--- OUTSIDE RECORDS SUMMARY | 2025-07-24 18:00 | XMS_ITS | Clinical Summary ---
Author Organization [facility] Address [address] [place] [address] Phone Care Team Providers Care Air Carrier Operations Inspector Name Role Phone Uday Guerrero MD Primary Care Provider [phone] Social History Tobacco UseTypesPacks/DayYears UsedDateSmoking Tobacco: Never Assessed CommentsUnknownSex and Gender InformationValueDate RecordedSex Assigned at Not on fileLegal WplRzocus01/26/2022 3:51 PM ESTGender IdentityNot on fileSexual OrientationNot on file Plan of Treatment Not on file Care Teams Team MemberRelationshipSpecialtyStart DateEnd Date Uday Guerrero MD [address] [facility] [place] [address] [facility]01/14/06
--- NOTE | 2025-07-24 18:16 | XR_ITS ---
[address] [address] Patient Name: SUMAN BOURNE MRN: [id number] date: 1960 Sex: F Assigned Patient Location: [facility] Current Patient Location: [facility] Accession/Order Number: [id number] Exam Date: 07/24/2025 18:04 Report Date: 07/24/2025 18:58 At the request of: AASHISH AGUILAR MD Procedure: XR knee RT 2V 2 views right knee CLINICAL HISTORY: Pain right knee COMPARISON: None FINDINGS: Postsurgical changes status post surgical repair of the patella with cerclage wires and fixation hardware. Hardware is intact. No fracture-dislocation identified. Soft tissues unremarkable. XR/XR knee RT 2V IMPRESSION: POSTSURGICAL CHANGES OF THE PATELLA. NEGATIVE FOR ACUTE OSSEOUS ABNORMALITY. Impression dictated by: Kiko Carlson M.D. 07/24/2025 6:58 PM Dictation Location: [place] [address] Electronically authenticated by: [id number] Y Date: 07/24/2025 18:58
--- NOTE | 2025-07-24 18:16 | XR_ITS ---
The [address] [address] Patient Name: SUMAN BOURNE MRN: [id number] date: 1960 Sex: F Assigned Patient Location: [facility] Current Patient Location: [facility] Accession/Order Number: [id number] Exam Date: 07/24/2025 18:04 Report Date: 07/24/2025 18:59 At the request of: AASHISH AGUILAR MD Procedure: XR ankle RT 2V 2 views of the right ankle CLINICAL HISTORY: Pain right ankle COMPARISON: None FINDINGS: No fractures or dislocation. Identified. Small joint effusion. Soft tissues unremarkable. XR/XR ankle RT 2V IMPRESSION: SOFT TISSUE SWELLING AND LIKELY JOINT EFFUSION. NEGATIVE ACUTE OSSEOUS ABNORMALITY. Impression dictated by: Kiko Carlson M.D. 07/24/2025 6:59 PM Dictation Location: [place] [address] Electronically authenticated by: [id number] Y Date: 07/24/2025 18:59
== END 2025-07-24 17:56 | disposition home or self-care (01) ==
PROVIDERS: PCP Family Medicine; Visit Provider Family Medicine
DX: M25.561 Pain in right knee (principal); M25.571 Pain in right ankle and joints of right foot
CPT/HCPCS: 73560; 73600